=== PATIENT | female | born 1975 | race Caucasian/White ===

== ENCOUNTER 2016-10-16 07:03 | Emergency (ER) | payer OTHER ==
[2016-10-16 07:09] VITALS: BP 125/89
[2016-10-16] MEDS ORDERED: Ketorolac 60 MG/2 ML SDV IM ONE (07:38)
[2016-10-16] MEDS ORDERED: cefTRIAXone 1 GM Vial IM ONE (07:38)
[2016-10-16] MEDS ORDERED: Acetaminophen/oxyCODONE 325-5 MG Tab PO ONE (07:39)
--- NOTE | 2016-10-16 07:54 | EDM.PDOC ---
ED HPI GENERAL MEDICAL PROBLEM - General Chief Complaint: General Stated Complaint: Facial swelling, Jaw pain Time Seen by Provider: 10/16/16 07:26 Source of Information: Reports: Patient History Limitations: Reports: No Limitations - History of Present Illness INITIAL COMMENTS - FREE TEXT/NARRATIVE: Increasing pain and swelling right lower jaw for last several days. Has broken molar in this area. Has not bothered her before. No fevers. No nausea/emesis. Has tried a variety of OTC remedies including mouthwash and salt water without improvement. Last dose of Ibuprofen was around midnight. 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 heat therapy also used with minimal relief Tooth/Teeth Pain Score (Numeric/FACES): 7 - Related Data Allergies Allergy/AdvReac Type Severity Reaction Status Date / Time No Known Allergies Allergy Verified 10/16/16 07:17 Home Meds: Home Meds Acetaminophen [Tylenol] 650 mg PO Q4HR PRN 01/24/13 [History] Ibuprofen [Wal-Profen] 400 mg PO Q6HR PRN 01/24/13 [History] Cephalexin [Keflex] 500 mg PO Q6HR #16 cap 10/16/16 [Rx] Past Medical History HEENT History: Reports: Impaired Vision Other HEENT History: wears glasses Genitourinary History: Reports: None Psychiatric History: Reports: Anxiety - Past Surgical History Female Surgical History: Reports: Tubal Ligation Neurological Surgical History: Reports: Lumbar Spine Social & Family History - Tobacco Use Smoking Status *Q: Current Every Day Smoker Years of Tobacco use: 20 Packs/Tins Daily: 0.5 Second Hand Smoke Exposure: Yes - Caffeine Use Caffeine Use: Reports: Coffee, Soda - Alcohol Use Days Per Week of Alcohol Use: 0 - Recreational Drug Use Recreational Drug Use: No ED ROS GENERAL - Review of Systems Review Of Systems: ROS reveals no pertinent complaints other than HPI. ED EXAM, GENERAL - Physical Exam Exam: See Below Exam Limited By: No Limitations General Appearance: Alert, WD/WN, Mild Distress Eye Exam: Bilateral Eye: EOMI, PERRL Nose: No: Nasal Swelling, Nasal Drainage Throat/Mouth: Normal Voice, No Airway Compromise, Other (broken molar noted right lower jawline, mild swelling of gum in area, no drainage. ) Head: Facial Swelling (mild, right lower jaw area), Facial Tenderness Neck: Normal Inspection, Supple, Non-Tender, Full Range of Motion. No: Lymphadenopathy (L), Lymphadenopathy (R) Respiratory/Chest: No Respiratory Distress Cardiovascular: Tachycardia Extremities: Normal Capillary Refill Neurological: Alert, Oriented, Normal Cognition, Normal Gait, No Motor/Sensory Deficits Course - Vital Signs Last Recorded V/S: Last Vital Signs Temp 36.9 C 10/16/16 07:07 Pulse 114 H 10/16/16 07:07 Resp 18 10/16/16 07:07 BP 125/89 10/16/16 07:07 Pulse Ox 98 10/16/16 07:07 - Orders/Labs/Meds Meds: Medications Discontinued Medications Generic Name Dose Route Start Last Admin Trade Name Anila PRN Reason Stop Dose Admin Ceftriaxone Sodium 1 gm 10/16/16 07:38 10/16/16 07:52 Rocephin IM 10/16/16 07:39 1 gm ONETIME ONE Administration Ketorolac Tromethamine 60 mg 10/16/16 07:38 10/16/16 07:52 Toradol IM 10/16/16 07:39 60 mg ONETIME ONE Administration Lidocaine HCl 5 ml 10/16/16 07:40 10/16/16 07:52 Xylocaine-Mpf 1% INJECT 10/16/16 07:41 5 ml ONETIME ONE Administration Oxycodone/Acetaminophen 1 tab 10/16/16 07:39 10/16/16 07:53 Percocet 325-5 Mg PO 10/16/16 07:40 1 tab ONETIME ONE Administration - Re-Assessments/Exams Free Text/Narrative Re-Assessment/Exam: 10/16/16 08:10 Patient treated for suspected dental infection. Rocephin and Toradol given. PO Percocet. Sent home with Keflex/Toradol/T#3 To follow up with dentist libra Monday after holiday . Precautions reviewed prior to discharge. To return to ER if worsens. Departure - Departure Time of Disposition: 07:57 Disposition: Home, Self-Care 01 Condition: Good Clinical Impression: Tooth pain - Discharge Information Prescriptions: Cephalexin [Keflex] 500 mg PO Q6HR #16 cap Instructions: Acetaminophen; Oxycodone tablets, Ketorolac injection, Ceftriaxone injection, Dental Abscess, Cephalexin tablets or capsules, Acetaminophen; Codeine tablets Referrals: Talha Murillo COLL[employer] TAILOR [Primary Care Provider] - Forms: ED Department Discharge Additional Instructions: Follow up Monday with dentist. Follow up in ER over weekend if you get worsening symptoms.
== END 2016-10-16 08:20 | disposition home or self-care (01) ==
LOC: LL.ED 07:03
DX: K08.89 Other specified disorders of teeth and supporting structures (principal); R68.84 Jaw pain; F41.9 Anxiety disorder, unspecified; F17.210 Nicotine dependence, cigarettes, uncomplicated; Z98.51 Tubal ligation status
CPT/HCPCS: 96372; 99283; A9270; J0696; J1885

== ENCOUNTER 2017-05-22 11:55 | Emergency (ER) | payer OTHER ==
[2017-05-22] MEDS ORDERED: Sodium Chloride 0.9% 1,000 ML IV ONE ×2 (11:56→12:07)
[2017-05-22] MEDS ORDERED: Sodium Chloride 0.9% 10 ML Syringe FLUSH PRN (12:00)
[2017-05-22] MEDS ORDERED: Ondansetron 4 MG/2 ML SDV ONE (12:30)
[2017-05-22] MEDS ORDERED: Heparin Sodium 5,000 Units/ML Vial ONE (12:30)
[2017-05-22] MEDS ORDERED: Morphine 2 MG/ML Syringe ONE ×2 (12:30)
[2017-05-22] MEDS ORDERED: Morphine 2 MG/ML Syringe IVPUSH ONE ×2 (12:38→13:04)
[2017-05-22] MEDS ORDERED: Ondansetron 4 MG/2 ML SDV IVPUSH ONE (12:38)
[2017-05-22] MEDS ORDERED: Aspirin 81 MG Tab.Chew PO ONE (12:39)
[2017-05-22] MEDS ORDERED: DOPamine/Dextrose 5%-Water 400 MG/250 ML BAG IV SCH (12:45)
[2017-05-22] MEDS ORDERED: Sodium Chloride 0.9% 1,000 ML IV SCH (12:45)
[2017-05-22 12:51] LABS: CHLORIDE,CL 105 mmol/L (98-107); SODIUM,NA 139 mmol/L (136-145)
[2017-05-22] MEDS ORDERED: Heparin Sodium 5,000 Units/ML Vial IVPUSH ONE (12:56)
[2017-05-22] MEDS ORDERED: Heparin Sodium/D5W 25,000 UNITS/500 ML BAG IV SCH (13:00)
--- NOTE | 2017-05-24 01:18 | ER ---
HISTORY OF PRESENT ILLNESS: The patient is a 41-year-old female who was working in [facility] office, apparently was observed by coworkers who noticed that she had collapsed and was breathing irregularly, so a code was called to her office. Physician and nurses arrived with crash cart. CPR was started immediately, and the patient placed on telemetry. Immediately, after the patient was placed on telemetry, it was noted that she was in atrial fibrillation. The patient was, at that time, defibrillated with 300 joules, which caused her to have a return of rhythm. CPR was continued for 2 minutes after the shock, and at that time, the patient was much more alert and complaining of chest pain secondary to the shock and breathing on her own. She was transported to the emergency room. PAST MEDICAL HISTORY: Reviewed and noted that there was no current past medical history or no medical history of significance. The patient denied coronary arterial disease and hyperlipidemia. MEDICATIONS: The patient is on no medication at this time. SOCIAL HISTORY: She is a heavy smoker. PHYSICAL EXAMINATION: HEENT: Revealed normocephalic and atraumatic. Eyes were PERRLA. Extraocular movements were intact. NECK: Supple. CHEST: Symmetrical expansion. Clear to auscultation. CARDIOVASCULAR: Tachycardic at 115 per minute. No murmurs were heard. ABDOMEN: Soft and nontender. No mass. EXTREMITIES: Revealed no edema. No cyanosis. ASSESSMENT: At this time is acute myocardial infarction. PLAN: The patient was transferred to [facility]. Prior to transfer, it was noted that her blood pressure was low, so dopamine was started at 5 mcg/kilo/min, and this was reduced to 2 mcg/kilo/min because of tachycardia. GAIL Herbert MD /[id number]
== END 2017-05-22 13:10 ==
LOC: LL.ED 11:55
DX: I21.9 Acute myocardial infarction, unspecified (principal); F17.200 Nicotine dependence, unspecified, uncomplicated
CPT/HCPCS: 36415; 51702; 80053; 82550; 82553; 83605; 83880; 84484; 85025; 85379; 85610; 85730; 93005; 93010; 96365; 96374; 96375; 96376; 99285; 99291; 99292; J1265; J1644; J2270; J2405; J7030

== ENCOUNTER 2017-07-13 13:05 | Inpatient (IN) | payer OTHER ==
--- NOTE | 2017-07-12 19:03 | PCM.HP ---
H&P History of Present Illness - General Date of Service: 07/13/17 Admit Problem/Dx: 1. Coronary artery disease with status post acute SD 2. Refractory recurrent ventricular fibrillation 3. Weakness Source of Information: Patient, Old Records ([facility] chart/EMR), Other (Transfer records from [facility]. [facility] History Limitations: Reports: No Limitations - History of Present Illness Initial Comments - Free Text/Narative: Patient was brought to the emergency room for direct admission to our Swing Bed unit for continuation of physical therapy, occupational therapy, strengthening, and care of multiple health care issues after severe acute SD with recurrent ventricular fibrillation with very complicated post-event course as below her initial SD with secondary ventricular fibrillation on 05/22/17 with subsequent transfer to [facility] in [place] and further referral to the [facility] with hospitalization in that facility since . Despite her significant postoperative course as below the patient is progressing well. The patient denies any chest pain/pressure, heart flutter, dizziness, orthostasis, orthopnea, diaphoresis, paresthesias, or any other anginal-type symptoms, although her exercise tolerance and activity level remains extremely low with moderate generalized weakness. No recent history of abdominal pain, heartburn, nausea, diarrhea, melena, gross hematochezia, or any food intolerance, including fatty foods, etc.. She denies any current UTI symptoms, including Rocephin hematuria, colic, etc. The patient also denies any recent fever, cough, wheezing, dyspnea, etc.. No history of recent headaches, visual changes, diplopia, change in mental status, or other change in neurological status with significant generalized weakness as above, right greater than left, with patient unable to ambulate without assist. Onset of Symptoms: Reports: Sudden Symptom Onset Date: 05/22/17 Duration of Symptoms: Reports: Constant, Improving Location: Reports: Other (No significant pain) Improves with: Reports: None Worsens with: Reports: None Context: Reports: Trauma (As above) Associated Symptoms: Reports: Weakness (As above), Other (Multiple wounds as below). Denies: Confusion, Chest Pain, Cough, Diaphoresis, Fever/Chills, Headaches, Loss of Appetite, Malaise, Nausea/Vomiting, Seizure, Shortness of Breath, Syncope - Related Data Allergies/Adverse Reactions: Allergies Allergy/AdvReac Type Severity Reaction Status Date / Time No Known Allergies Allergy Verified 05/22/17 12:34 Home Medications: Home Meds Amiodarone HCl 400 mg PO DAILY 07/13/17 [History] Aspirin 81 mg PO DAILY 07/13/17 [History] Metoprolol Tartrate 25 mg PO BID@08,07/13/17 [History] Multivitamin with Minerals [Zwa-T-Fjpy-Minerals] 1 each PO DAILY 07/13/17 [ History] Pantoprazole [ProTONIX] 40 mg PO DAILY 07/13/17 [History] Ticagrelor [Brilinta] 90 mg PO BID@,07/13/17 [History] predniSONE [Prednisone] 5 mg PO DAILY 07/13/17 [History] Past Medical History HEENT History: Reports: Allergic Rhinitis, Impaired Vision. Denies: Cataract, Glaucoma, Hard of Hearing, Macular Degeneration, Retinal Detachment Other HEENT History: Patient wears glasses Cardiovascular History: Reports: Aneurysm, Arrhythmia, Automatic Implantable Cardioverter Defibrillators, Blood Clots/VTE/DVT, CAD, Cardiomyopathy, Heart Failure, High Cholesterol, SD, Pacemaker, PVD, SOB on Exertion, Stents, Syncope , Other (See Below). 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 Refractory recurrent ventricular fibrillation with secondary cardiac arrest on 05/22/17, 06/03/17, and . Bilateral DVTs of the lower extremities in May 2017. Recurrent tachycardia in 2012 of unknown type and etiology and related to anxiety at that time. Dry gangrene of the toes of her right foot secondary to post SD vascular injury as above/below. Respiratory History: Reports: Intubation, Previous, Other (See Below). Denies: Asthma, COPD, Intubation, Difficult, PE, Pneumothorax, Sleep Apnea Other Respiratory History: Initial endotracheal intubation on 05/1917 with reintubation on 06/03/17 and 06/29/17 Gastrointestinal History: Reports: GI Bleed, Hepatitis, Other (See Below). Denies: Bowel Obstruction, Celiac Disease, Cholelithiasis, Gastritis, GERD, Inflammatory Bowel Disease, Irritable Bowel Syndrome, Pancreatitis, PUD Other Gastrointestinal History: Severe lower intestinal GI bleed in June 2017 after acute SD in May 2017 with subsequent operative procedure required as below. Hepatic injury/LFTs elevation secondary to acute SD in May 2017. Post CVA dysphagia after SD in May 2017. Genitourinary History: Reports: Acute Renal Failure, Other (See Below). Denies : Chronic Renal Insuffiency, Renal Calculus, Urinary Incontinence, UTI, Recurrent Other Genitourinary History: Acute renal failure in May and June 2017 secondary to complications from acute SD in May 2017 with dialysis required CALL [facility] SUPPORT CONSULTANT History: Reports: Dysfunctional Uterine Bleeding, . Denies: Endometriosis, Fibroids : 5 Para: 4 LMP (Approximate): Other (See Below) Other OB/BYN History: Twin with as below. Dysmenorrhea/ menorrhagia. Musculoskeletal History: Reports: Arthritis Neurological History: Reports: CVA, Neuropathy, Peripheral, Other (See Below). Denies: Alzheimers Disease, Cerebral Aneurysms, Concussion, Headaches, Chronic, Head Trauma, Migraines, MS, Neuropathy, Diabetic, Parkinson's, Seizure, TIA Other Neuro History: Diffuse multiple bilateral small cerebral and cerebellar hemorrhages on 06/03/17 and/or septic infarctions subsequent to acute SD on 2017 with secondary sepsis and DIC Psychiatric History: Reports: Anxiety, Bipolar, Depression, Other (See Below) Other Psychiatric History: Bipolar disorder with some ashley in 2012 Endocrine/Metabolic History: Reports: Obesity/BMI 30+, Other (See Below). Denies: Diabetes, Type I, Diabetes, Type II, Diabetes Mellitus, Type 3c, Hypothyroidism, IDDM, Osteopenia, Osteoporosis Other Endocrine/Metabolic History: Hypoglycemia during . Benign thyroid cysts. Hematologic History: Reports: Anemia, Blood Transfusion(s), Heparin Induced Thrombocytopenia, Other (See Below) Other Hematologic History: Massive transfusion protocol on 05/23/17 after removal of ECMO with additional 2 units of packed red blood cells on 06/14 and . Thrombocytopenia and DIC secondary to sepsis in May 2017 Immunologic History: Reports: None Oncologic (Cancer) History: Reports: Cervix, Other (See Below) Other Oncologic History: Previous abnormal Pap smear Dermatologic History: Reports: Other (See Below) Other Dermatologic History: Acne vulgaris - Infectious Disease History Infectious Disease History: Reports: Chicken Pox, Shingles, Other (See Below). Denies: C-Difficile, Meningitis, Mononucleosis, MRSA, Mumps, Pertussis ( Whooping Cough), Rheumatic Fever, Rubella, Scarlet Fever, TB, VRE Other Infectious Disease History: Stenotrophomonas maltophilia sepsis secondary to postoperative SD course in May 2017 with secondary DIC as above. Right cervical herpes zoster in November 2012. Recurrent herpes types 1. - Past Surgical History Head Surgeries/Procedures: Reports: None HEENT Surgical History: Reports: Oral Surgery, Other (See Below). Denies: Adenoidectomy, Laser Surgery, Myringotomy w Tube(s), Tonsillectomy Other HEENT Surgeries/Procedures: Multiple teeth extractions Cardiovascular Surgical History: Reports: AICD, Carotid Stents, Coronary Artery Stent, Pacer, Vascular Surgery. Denies: AAA Repair, Aneurysm Other Cardiovascular Surgeries/Procedures: Drug-eluting stents 3 of the right coronary artery overlapping in nature and additional drug-eluting stent 1 over the left main coronary artery and proximal LAD on 05/22/17 secondary to aneurysm/ dissection. Repair of right femoral artery dissection with additional required fasciotomy and 06/02/17 secondary to ECMO catheter. Right subclavian artery banding on 06/03/17 secondary to hemorrhage/hematoma from ECMO catheter with evacuation of right axillary hematoma on 06/08/17. Trans-axillary IABP placed on 06/08/17 with replacement on 06/11/17. Middle celiac artery embolization on . Right leg femoral artery stent placement and fasciotomy of the right leg on 05/23/17 and subsequent closure on 05/26/17. PICC line on 06/21/17. AICD/pacemaker placement on 07/04/17 Respiratory Surgical History: Reports: None. Denies: Thoracentesis GI Surgical History: Reports: Other (See Below). Denies: Appendectomy, Cholecystectomy, Colonoscopy, EGD, Hernia, Abdominal, Hernia, Inguinal, Hernia Repair/Other, Polypectomy Other GI Surgeries/Procedures: Flexible sigmoidoscopy on 06/13/17 Female Surgical History: Reports: Section, Tubal Ligation, Other ( See Below) Other Female Surgeries/Procedures: Alfonso catheter placement by urology on . Bilateral tubal ligation in 2007. secondary to twin delivery on 02/25/07. Endocrine Surgical History: Reports: None Neurological Surgical History: Reports: Lumbar Spine, Other (See Below). Denies : C-Spine, Discectomy, Intracranial, Laminectomy, Spinal Fusion, Thoracic Spine , Vertebroplasty Other Neurological Surgeries/Procedures: Stellate ganglion block on 06/23/17. Musculoskeletal Surgical History: Reports: None Oncologic Surgical History: Reports: None Dermatological Surgical History: Reports: None - Past Imaging History Past Imaging History: Reports: Angiography (Heart catheterization on 05/22/17 with procedures as above.), Cardiac Echo (Last echocardiogram on 06/04/17 with ejection fraction of only 2530 percent with previous echocardiogram at time of her SD on 05/22/17 showing an ejection fraction of only 510 percent), CAT Scan ( CT of the head on 06/13/17, 06/03/17, and 11/30/12. CTA of the chest on 06/14/17. CT of the neck on 11/26/12.), Ultrasound (Soft tissue ultrasound of the neck and thyroid gland on 11/23/12.), Venous Doppler (Venous Doppler studies of the lower extremities 2 in May 2017.) Social & Family History - Family History Family Medical History: Noncontributory - Tobacco Use Smoking Status *Q: Former Smoker Tobacco Use Within Last Twelve Months: Cigarettes Years of Tobacco use: 21 Packs/Tins Daily: 0.5 Packs/Tins Daily Comment: Smoked between ages 21 and 41 with no use since her SD on 05/22/17. Maximum use of 2 packs per day Used Tobacco, but Quit: Yes Smoking Cessation Information Provided To Patient: No Second Hand Smoke Exposure: No Second Hand Smoke Education Provided: No - Caffeine Use Caffeine Use: Reports: Coffee (2 cups per day). Denies: Energy Drinks, Soda, Tea - Alcohol Use Alcohol Use History: No Days Per Week of Alcohol Use: 0 Number of Drinks Per Day: 0 Number of Drinks Per Day Comment: No previous DWIs, problems with alcohol abuse , etc. 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 Denies : Fever, Chills, Malaise, Night Sweats, Diaphoresis, Decreased Appetite, Weight Gain HEENT: Reports: Glasses. Denies: Ear Pain, Eye Pain, Headaches, Hearing Changes , Rhinitis, Post Nasal Drip, Sinus Congestion, Sore Throat, Vertigo, Visual Changes Pulmonary: Reports: No Symptoms. Denies: Shortness of Breath, Wheezing, Pleuritic Chest Pain, Cough Cardiovascular: Reports: Edema. Denies: Chest Pain, Palpitations, Dyspnea on Exertion, Orthopnea, Lightheadedness, Syncope, Claudication, Blood Pressure Problem Gastrointestinal: Reports: No Symptoms. Denies: Abdominal Pain, Anorexia, Black Stool, Bloody Stool, Constipation, Diarrhea, Decreased Appetite, Distension, Flatus, Hematochezia, Melena, Nausea, Stool Incontinence, Vomiting Genitourinary: Reports: No Symptoms. Denies: Dysuria, Frequency, Burning, Pain , Urgency, Incontinence, Hematuria, Retention, Discharge, Abnormal Menses, Dysmenorrhea, Flank Pain Musculoskeletal: Reports: No Symptoms. Denies: Neck Pain, Shoulder Pain, Arm Pain, Back Pain, Leg Pain Skin: Reports: Bruising, Wound (As per physical exam), Change in Color (As per physical exam). Denies: Diaphoresis Psychiatric: Reports: No Symptoms. Denies: Confusion, Depression, Anxiety, Agitation, Cravings Neurological: Reports: Numbness, Paresthesia, Difficulty Walking, Weakness. Denies: Confusion, Dizziness, Headache, Change in Speech Hematologic/Lymphatic: Reports: No Symptoms Immunologic: Reports: No Symptoms Exam - Exam Exam: See Below - Vital Signs Vital Signs: Vital Signs - 24 hr 07/13/17 07/13/17 17:07 22:12 Temperature [ 36.4 C Temporal] Pulse, 102 H Peripheral Pulse, 102 H Peripheral [ Left Pulse Oximetry] Blood Pressure 82/49 L Blood Pressure 82/49 L [Left Lower Leg ] O2 Sat by Pulse 100 Oximetry - Exam Quality Assessment: DVT Prophylaxis, Skin Breakdown. No: Supplemental Oxygen, Central Line/PICC, Urinary Catheter, Restraints General: Alert, Oriented, Cooperative HEENT: Conjunctiva Clear, EACs Clear, EOMI, Hearing Intact, Mucosa Moist & [place] , Nares Patent, Normal Nasal Septum, Posterior Pharynx Clear, Pupils Equal, Pupils Reactive, TMs Clear, Glasses, PERRLA Neck: Supple, Trachea Midline, +2 Carotid Pulse wo Bruit, Full Range of Motion. No: Lymphadenopathy, JVD, Thyromegaly Lungs: Normal Respiratory Effort, Rales (Mild bilateral basilar). No: Rhonchi, Rub, Wheezing Cardiovascular: Normal S1, Normal S2, Irregular Rhythm (Extrasystoles), Tachycardia (Borderline), Other (Steri-Strips and left upper chest wall region at site of ICD placement). No: Systolic Murmur, Diastolic Murmur, Rubs, Gallop/ S3, Gallop/S4 GI/Abdominal Exam: Normal Bowel Sounds, Soft, Non-Tender, No Organomegaly, No Distention, No Abnormal Bruit, No Mass, Pelvis Stable. No: Guarding (Female) Exam: Deferred Rectal (Female) Exam: Deferred Back Exam: Normal Inspection, Full Range of Motion. No: CVA Tenderness (L), CVA Tenderness (R), Muscle Spasm Extremities: Pedal Edema (+1 bilateral pedal/pretibial edema right greater than left.), Slow Capillary Refill (Toes bilaterally), Other (2 cm in length surgical site in the right axillary region with sutures still in place and moderate surrounding ecchymosis and swelling, no local signs of acute infection. 8 cm in length grade 23 wound with mild purulent drainage at left inguinal region. Large incision over the distal right leg at site of the fasciotomy with no local signs of infection. Dry gangrene of the toes of the right foot with no drainage or sign of infection). No: Kevin's Sign Peripheral Pulses: 1+: Dorsalis Pedis (L), Dorsalis Pedis (R), 2+: Radial (L), Radial (R) Skin: Ecchymosis (As above), Wound (As above), Incision (As above). No: Decubitis Neurological: Other (Moderate generalized weakness right greater than left), Babinski Absent Neuro Extensive - Mental Status: Alert, Oriented x3, Normal Mood/Affect, Normal Cognition, Memory Intact, Other (Moderate resting tremor) Psychiatric: Alert, Normal Affect, Normal Mood. No: Agitated, Hallucinations, Withdrawal Symptoms - Patient Data Imaging Impressions Last 24 hrs: Blood work to be conducted in the a.m. EKG INTERPRETATION EKG Date: 07/14/17 Time: 21:14 Rhythm: Other (Sinus tachycardia) Rate (Beats/Min): 102 [place]: Normal (Left cardiac axis) P-Wave: Present (Pulmonary hypertension by EKG) QRS: Wide (QRS interval of 0.10 seconds representing repolarization changes) ST-T: Depressed ([address] depressions in leads 1, 2, and V3 through V6) QT: Normal LA/PQ Interval: 0.19 seconds Comparison: NA - No Prior EKG (Since acute SD) EKG Interpretation Comments: 1. Probable Lateral wall ischemia 2. Sinus tachycardia - Problem List (1) Coronary artery disease SNOMED Code(s): 78728446 ICD Code: I25.10 - ATHSCL HEART DISEASE OF [place] CORONARY ARTERY W/O ANG PCTRS Status: Acute Priority: High Current Visit: Yes Onset Date: Problem Details: Significant SD on 05/22/17 as above with severely complicated course. Some arrhythmia noted, however was not present at today's EKG. Note current pacemaker and AICD. No current anginal-type symptoms. Blood work and chest x-ray in the a.m. with [facility] physician to evaluate. I will also follow up with the patient next week with probable repeat blood work that time. Week. Qualifiers: Coronary Disease-Associated Artery/Lesion type: [place] artery [place] vs. transplanted heart: [place] heart Associated angina: without angina Qualified Code(s): I25.10 - Atherosclerotic heart disease of [place] coronary artery without angina pectoris (2) Peripheral vascular disease SNOMED Code(s): 896988662 ICD Code: I73.9 - PERIPHERAL VASCULAR DISEASE, UNSPECIFIED Status: Acute Priority: High Current Visit: Yes Problem Details: Significant peripheral vascular disease secondary to complications from ECMO therapy as above. Dry gangrene of the right foot with possible surgical consultation next week (3) Hyperlipidemia SNOMED Code(s): 67832246 ICD Code: E78.5 - HYPERLIPIDEMIA, UNSPECIFIED Status: Chronic Priority: Medium Current Visit: Yes Problem Details: Currently under therapy. Lipid panel in the a.m. (4) Weakness SNOMED Code(s): 15714572 ICD Code: R53.1 - WEAKNESS Status: Acute Priority: High Current Visit: Yes Problem Details: PT and OT to be continued during swing bed care. Strict fall precautions (5) CHF (congestive heart failure) SNOMED Code(s): 97310674 ICD Code: I50.9 - HEART FAILURE, UNSPECIFIED Status: Acute Priority: High Current Visit: Yes Problem Details: Consider echocardiogram in the upcoming weeks depending on her clinical course. Qualifiers: Heart failure type: unspecified Heart failure chronicity: chronic Qualified Code(s): I50.9 - Heart failure, unspecified (6) Mixed anxiety depressive disorder SNOMED Code(s): 964585431 ICD Code: F41.8 - OTHER SPECIFIED ANXIETY DISORDERS Status: Chronic Priority: Medium Current Visit: Yes Problem Details: Excellent control despite recent extensive hospitalization and current health problems. Continue to observe closely. Emotional support provided to the patient, her , and 2 daughters today (7) Tobacco abuse counseling SNOMED Code(s): 571629505, 603671943, 576293736 ICD Code: Z71.6 - TOBACCO ABUSE COUNSELING Status: Chronic Current Visit : Yes Problem Details: Patient congratulated about stopping smoking Problem List Initiated/Reviewed/Updated: Yes Assessment/Plan Comment:: As above. Extensive precautions were given to the patient and her , who are in agreement with the treatment plan.
[2017-07-13] MEDS ORDERED: Bisacodyl 5 MG Tab PO PRN (13:06)
[2017-07-13] MEDS ORDERED: Calcium Carbonate 500 MG Tab.Chew PO PRN (13:06)
[2017-07-13] MEDS: Ticagrelor 90 MG Tab PO SCH (22:12)
[2017-07-13] MEDS: Metoprolol Tartrate 25 MG Tab PO SCH (22:12)
[2017-07-14 08:30] LABS: CHLORIDE,CL 105 mmol/L (98-107); SODIUM,NA 137 mmol/L (136-145)
--- NOTE | 2017-07-14 09:13 | PCM.SN ---
- Free Text/Narrative Note: Labs reviewed this AM. NEW DIAGNOSES: iron deficiency anemia, hypotension, hypoalbuminemia, hypothyroidism, CHF, hypomagnesemia, and LFT elevation likely secondary to CHF. Also add Refractory V. fib and peripheral neuropathy to diagnoses. BP better this AM with moderate hypotension this past evening. Patient would not tolerate diuretics or ARLEEN inhibitor at this time. Check on logistics and finances of possible Echo in this facility on 07/18. Dr. Pineda will review today's CXR for me today. Follow up labs, etc already ordered for 07/18 and 08/17 with Swing Bed Rounds on those days. Neurontin ordered for peripheral neuropathy with other orders/meds today for new above diagnoses. Surgical Cosult here for right foot gangrene planned for 07/20. Lipid panel and glycosylated hemoglobin are OK.
[2017-07-14] MEDS: Aspirin 81 MG Tab.Chew PO SCH (09:30)
[2017-07-14] MEDS: Multivitamin Tab PO SCH (09:30)
[2017-07-14] MEDS: Amiodarone 200 MG Tab PO SCH (09:31)
[2017-07-14] MEDS: Metoprolol Tartrate 25 MG Tab PO SCH ×2 (09:31→19:46)
[2017-07-14] MEDS: predniSONE 5 MG Tab PO SCH (09:32)
[2017-07-14] MEDS: Pantoprazole 40 MG Tab.CR PO SCH (09:32)
[2017-07-14] MEDS: Ticagrelor 90 MG Tab PO SCH ×2 (09:32→19:43)
[2017-07-14] MEDS: Gabapentin 300 MG Cap PO SCH ×2 (11:45→17:22)
[2017-07-14] MEDS: Levothyroxine 50 MCG Tab PO SCH (11:45)
[2017-07-14] MEDS: Ferrous Sulfate 325 MG Tab PO SCH (17:21)
[2017-07-14] MEDS: Magnesium Oxide 400 MG Tab PO SCH (17:22)
[2017-07-15] MEDS: Aspirin 81 MG Tab.Chew PO SCH (07:46)
[2017-07-15] MEDS: Multivitamin Tab PO SCH (07:47)
[2017-07-15] MEDS: Amiodarone 200 MG Tab PO SCH (07:47)
[2017-07-15] MEDS: Metoprolol Tartrate 25 MG Tab PO SCH ×2 (07:47→20:25)
[2017-07-15] MEDS: Ferrous Sulfate 325 MG Tab PO SCH ×2 (07:47→18:34)
[2017-07-15] MEDS: Pantoprazole 40 MG Tab.CR PO SCH (07:48)
[2017-07-15] MEDS: predniSONE 5 MG Tab PO SCH (07:49)
[2017-07-15] MEDS: Ticagrelor 90 MG Tab PO SCH ×2 (07:50→20:25)
[2017-07-15] MEDS: Levothyroxine 50 MCG Tab PO SCH (07:50)
[2017-07-15] MEDS: Gabapentin 300 MG Cap PO SCH ×2 (07:51→18:34)
[2017-07-15] MEDS: Magnesium Oxide 400 MG Tab PO SCH (18:34)
[2017-07-16] MEDS: Ferrous Sulfate 325 MG Tab PO SCH ×2 (07:48→18:30)
[2017-07-16] MEDS: Multivitamin Tab PO SCH (07:48)
[2017-07-16] MEDS: Aspirin 81 MG Tab.Chew PO SCH (07:48)
[2017-07-16] MEDS: Amiodarone 200 MG Tab PO SCH (07:49)
[2017-07-16] MEDS: predniSONE 5 MG Tab PO SCH (07:49)
[2017-07-16] MEDS: Metoprolol Tartrate 25 MG Tab PO SCH ×2 (07:49→20:56)
[2017-07-16] MEDS: Pantoprazole 40 MG Tab.CR PO SCH (07:49)
[2017-07-16] MEDS: Ticagrelor 90 MG Tab PO SCH ×2 (07:49→20:55)
[2017-07-16] MEDS: Gabapentin 300 MG Cap PO SCH ×2 (07:49→18:30)
[2017-07-16] MEDS: Levothyroxine 50 MCG Tab PO SCH (07:49)
--- NOTE | 2017-07-16 10:26 | PCM.SN ---
- Free Text/Narrative Note: UA culture + Klebsiella. Susceptible to Macrobid. Will place patient on course of Macrobid for 7 days.
[2017-07-16] MEDS: Nitrofurantoin Monohydrate/Macrocrystalline 100 MG Cap PO SCH ×2 (11:29→18:30)
[2017-07-16] MEDS: Magnesium Oxide 400 MG Tab PO SCH (18:30)
[2017-07-17] MEDS: Ferrous Sulfate 325 MG Tab PO SCH ×2 (08:30→17:21)
[2017-07-17] MEDS: Gabapentin 300 MG Cap PO SCH ×2 (08:31→17:22)
[2017-07-17] MEDS: Levothyroxine 50 MCG Tab PO SCH (08:31)
[2017-07-17] MEDS: Aspirin 81 MG Tab.Chew PO SCH (08:31)
[2017-07-17] MEDS: Multivitamin Tab PO SCH (08:31)
[2017-07-17] MEDS: Amiodarone 200 MG Tab PO SCH (08:32)
[2017-07-17] MEDS: Ticagrelor 90 MG Tab PO SCH (08:32)
[2017-07-17] MEDS: Pantoprazole 40 MG Tab.CR PO SCH (08:32)
[2017-07-17] MEDS: Metoprolol Tartrate 25 MG Tab PO SCH (08:33)
[2017-07-17] MEDS: Nitrofurantoin Monohydrate/Macrocrystalline 100 MG Cap PO SCH ×2 (10:42→17:22)
[2017-07-17] MEDS: Magnesium Oxide 400 MG Tab PO SCH (17:21)
[2017-07-18] MEDS: Ticagrelor 90 MG Tab PO SCH ×3 (03:35→21:44)
[2017-07-18] MEDS: Metoprolol Tartrate 25 MG Tab PO SCH ×3 (03:35→21:44)
[2017-07-18] MEDS: Ferrous Sulfate 325 MG Tab PO SCH ×2 (07:22→18:22)
[2017-07-18] MEDS: Levothyroxine 50 MCG Tab PO SCH (07:22)
[2017-07-18] MEDS: Amiodarone 200 MG Tab PO SCH (07:23)
[2017-07-18] MEDS: Aspirin 81 MG Tab.Chew PO SCH (07:23)
[2017-07-18] MEDS: Gabapentin 300 MG Cap PO SCH ×3 (07:24→18:22)
[2017-07-18] MEDS: Nitrofurantoin Monohydrate/Macrocrystalline 100 MG Cap PO SCH ×2 (07:24→18:22)
[2017-07-18] MEDS: Multivitamin Tab PO SCH (07:24)
[2017-07-18] MEDS: Pantoprazole 40 MG Tab.CR PO SCH (07:24)
[2017-07-18] MEDS: Acetaminophen 325 MG Tab PO PRN (07:33)
[2017-07-18 07:52] LABS: CHLORIDE,CL 109 mmol/L (98-107); SODIUM,NA 142 mmol/L (136-145)
--- NOTE | 2017-07-18 08:18 | PCM.PN ---
- General Info Date of Service: 07/18/17 Admission Dx/Problem (Free Text): 1. Coronary artery disease with status post acute [place] 2. Refractory recurrent ventricular fibrillation 3. Weakness Functional Status: Reports: Pain Controlled, Tolerating Diet. Denies: Ambulating (the patient is still a Angelito lift with PT and OT in progress) - Review of Systems General: Reports: Weakness HEENT: Reports: Glasses. Denies: Dysphasia, Ear Pain, Eye Pain, Headaches, Post Nasal Drip, Sinus Congestion, Sore Throat, Rhinitis, Visual Changes Pulmonary: Reports: No Symptoms. Denies: Shortness of Breath (limited activity) , Pleuritic Chest Pain, Cough, Sputum, Hemoptysis, Wheezing Cardiovascular: Reports: Edema (stable dependent). Denies: Chest Pain, Palpitations, Dyspnea on Exertion (limited activity), Orthopnea, PND, Lightheadedness Gastrointestinal: Reports: No Symptoms. Denies: Abdominal Pain, Constipation, Decreased Appetite, Diarrhea, Difficulty Swallowing, Flatus, Hematochezia, Melena, Nausea, Vomiting Genitourinary: Reports: No Symptoms, Other (current UTI under therapy with Macrobid). Denies: Dysuria, Frequency, Burning, Pain, Urgency, Incontinence, Hematuria, Retention, Flank Pain Musculoskeletal: Reports: Foot Pain (secondary to gangrene and peripheral neuropathy). Denies: Neck Pain, Shoulder Pain, Arm Pain, Back Pain, Leg Pain Skin: Reports: Pallor, Other (stable postoperative wounds). Denies: Diaphoresis , Bruising Neurological: Reports: Numbness, Paresthesia, Pre-Existing Deficit (resting tremor and mild right hemiparesis), Tingling, Weakness (moderate generalized), Gait Disturbance (stable). Denies: Confusion, Dizziness, Headache, Change in Speech Psychiatric: Reports: No Symptoms. Denies: Confusion, Depression, Anxiety, Agitation, Hallucinations - Patient Data Vitals - Most Recent: Last Vital Signs Temp 36.8 C 07/17/17 19:59 Pulse 106 H 07/18/17 07:23 Resp 16 07/17/17 19:59 BP 117/67 07/18/17 07:23 Pulse Ox 100 07/17/17 19:59 Vital Signs (72 hours) 07/15/17 07/15/17 07/16/17 20:00 20:25 07:49 Temperature [ 36.4 C Temporal] Pulse, 87 84 Peripheral Pulse, 87 Peripheral [ Left Pulse Oximetry] Respiratory 14 Rate Blood Pressure 122/73 115/68 Blood Pressure 122/73 [Left Lower Leg ] O2 Sat by Pulse 100 Oximetry 07/16/17 07/16/17 07/17/17 08:00 20:00 08:00 Temperature [ 36.7 C 36.4 C 36.4 C Temporal] Pulse, Peripheral Pulse, 84 101 H 109 H Peripheral [ Left Pulse Oximetry] Respiratory 16 18 17 Rate Blood Pressure Blood Pressure 115/68 94/60 100/64 [Left Lower Leg ] O2 Sat by Pulse 96 98 100 Oximetry 07/17/17 07/17/17 07/18/17 08:33 19:59 07:23 Temperature [ 36.8 C Temporal] Pulse, 109 H 106 H Peripheral Pulse, 112 H Peripheral [ Left Pulse Oximetry] Respiratory 16 Rate Blood Pressure 110/68 117/67 Blood Pressure 98/63 [Left Lower Leg ] O2 Sat by Pulse 100 Oximetry 07/18/17 08:00 Temperature [ 36.5 C Temporal] Pulse, Peripheral Pulse, 103 H Peripheral [ Left Pulse Oximetry] Respiratory 16 Rate Blood Pressure Blood Pressure 117/67 [Left Lower Leg ] O2 Sat by Pulse 97 Oximetry Weight - Most Recent: 82.554 kg I&O - Last 24 Hours: Intake & Output 07/17/17 07/18/17 07/18/17 22:59 06:59 14:59 Intake Total 120 350 Balance 120 350 Imaging Impressions - Last 24 Hours: None. Chest x-ray report from 07/14 reviewed as below Lab Results Last 24 Hours: Laboratory Results - last 24 hr 07/18/17 07/18/17 Range/Units 07:23 07:23 WBC 8.4 (4.0-10.2) K/uL RBC 3.14 L (3.77-5.09) M/uL Hgb 9.8 L (11.7-15.5) g/dL Hct 30.2 L (34.0-46.0) % MCV 96.2 (84.0-98.0) fL MCH 31.2 (28.2-33.3) pg MCHC 32.5 (31.7-36.0) g/dL RDW 16.4 H (11.2-14.1) % Plt Count 195 (150-350) K/uL Neut % (Auto) 64.8 (45.0-80.0) % Lymph % (Auto) 26.5 (10.0-50.0) % [place] % (Auto) 5.7 (2.0-14.0) % Eos % (Auto) 2.5 (0.0-5.0) % Baso % (Auto) 0.5 (0.0-2.0) % Neut # (Auto) 5.44 (1.40-7.00) K/uL Lymph # (Auto) 2.23 (0.50-3.50) K/uL [place] # (Auto) 0.48 (0.00-1.00) K/uL Eos # (Auto) 0.21 (0.00-0.50) K/uL Baso # (Auto) 0.04 (0.00-0.20) K/uL Sodium 142 (136-145) mmol/L Potassium 3.7 (3.5-5.1) mmol/L Chloride 109 H (98-107) mmol/L Carbon Dioxide 23.4 (21.0-32.0) mmol/L BUN 13 (7-18) mg/dL Creatinine 0.82 (0.51-1.17) mg/dL Est Cr Clr Drug Dosing 95.31 mL/min Estimated GFR (MDRD) > 60 mL/min Glucose 80 (74-106) mg/dL Calcium 9.2 (8.5-10.1) mg/dL Magnesium 1.7 L (1.8-2.4) mg/dL Total Bilirubin 0.5 (0.2-1.0) mg/dL AST 45 H (15-37) U/L ALT 55 (12-78) U/L Alkaline Phosphatase 368 H (46-116) IU/L NT-Pro-B Natriuret Pep 4659 H (0-125) pg/mL Total Protein 5.9 L (6.4-8.2) g/dL Albumin 2.3 L (3.4-5.0) g/dL Laboratory Tests 07/14/17 07/14/17 07/14/17 Range/Units 07:15 07:15 07:15 WBC 8.9 (4.0-10.2) K/uL RBC 3.27 L (3.77-5.09) M/uL Hgb 10.1 L D (11.7-15.5) g/dL Hct 30.7 L (34.0-46.0) % MCV 93.9 (84.0-98.0) fL MCH 30.9 (28.2-33.3) pg MCHC 32.9 (31.7-36.0) g/dL RDW 16.7 H (11.2-14.1) % Plt Count 191 D (150-350) K/uL Neut % (Auto) 71.3 (45.0-80.0) % Lymph % (Auto) 19.1 (10.0-50.0) % [place] % (Auto) 6.3 (2.0-14.0) % Eos % (Auto) 2.8 (0.0-5.0) % Baso % (Auto) 0.5 (0.0-2.0) % Neut # (Auto) 6.33 (1.40-7.00) K/uL Lymph # (Auto) 1.70 (0.50-3.50) K/uL [place] # (Auto) 0.56 (0.00-1.00) K/uL Eos # (Auto) 0.25 (0.00-0.50) K/uL Baso # (Auto) 0.04 (0.00-0.20) K/uL PT 11.4 (9.8-11.7) SEC INR 1.1 APTT 21.8 L (22.1-29.8) SEC Sodium (136-145) mmol/L Potassium (3.5-5.1) mmol/L Chloride (98-107) mmol/L Carbon Dioxide (21.0-32.0) mmol/L BUN (7-18) mg/dL Creatinine (0.51-1.17) mg/dL Est Cr Clr Drug Dosing Estimated GFR (MDRD) mL/min Glucose (74-106) mg/dL Hemoglobin A1c (4.3-5.7) % Uric Acid (2.6-7.2) mg/dL Calcium (8.5-10.1) mg/dL Magnesium (1.8-2.4) mg/dL Iron (50-175) ug/dL TIBC (250-450) ug/dL % Saturation Total Bilirubin (0.2-1.0) mg/dL AST (15-37) U/L ALT (12-78) U/L Alkaline Phosphatase (46-116) IU/L Creatine Kinase (26-308) U/L Creatine Kinase Index (0.0-2.5) % CK-MB (CK-2) (0.00-3.60) ng/mL Troponin I 0.050 (0.000-0.056) ng/mL NT-Pro-B Natriuret Pep (0-125) pg/mL Total Protein (6.4-8.2) g/dL Albumin (3.4-5.0) g/dL Triglycerides (30-150) mg/dL Cholesterol (100-200) mg/dL LDL Cholesterol, Calc (0-100) mg/dL HDL Cholesterol (40-60) mg/dL Vitamin B12 (193-986) pg/mL Folate (8.6-58.9) ng/mL TSH, Ultra Sensitive (0.358-3.740) mIU/mL Specimen Type Urine Color Urine Appearance Urine pH (5.0-9.0) Ur Specific [place] (1.005-1.030) Urine Protein (NEGATIVE) mg/dL Urine Glucose (UA) (NEGATIVE) mg/dL Urine Ketones (NEGATIVE) mg/dL Urine Occult Blood (NEGATIVE) Urine Nitrite (NEGATIVE) Urine Bilirubin (NEGATIVE) Urine Urobilinogen (0.2-1.0) E.U./dL Ur Leukocyte Esterase (NEGATIVE) Urine RBC /HPF Urine WBC /HPF Ur Epithelial Cells /LPF Urine Bacteria (NONE TO FEW) /HPF Urine Yeast (NEGATIVE) /HPF 07/14/17 07/14/17 07/14/17 Range/Units 07:15 07:15 07:15 WBC (4.0-10.2) K/uL RBC (3.77-5.09) M/uL Hgb (11.7-15.5) g/dL Hct (34.0-46.0) % MCV (84.0-98.0) fL MCH (28.2-33.3) pg MCHC (31.7-36.0) g/dL RDW (11.2-14.1) % Plt Count (150-350) K/uL Neut % (Auto) (45.0-80.0) % Lymph % (Auto) (10.0-50.0) % [place] % (Auto) (2.0-14.0) % Eos % (Auto) (0.0-5.0) % Baso % (Auto) (0.0-2.0) % Neut # (Auto) (1.40-7.00) K/uL Lymph # (Auto) (0.50-3.50) K/uL [place] # (Auto) (0.00-1.00) K/uL Eos # (Auto) (0.00-0.50) K/uL Baso # (Auto) (0.00-0.20) K/uL PT (9.8-11.7) SEC INR APTT (22.1-29.8) SEC Sodium 137 (136-145) mmol/L Potassium 3.5 (3.5-5.1) mmol/L Chloride 105 (98-107) mmol/L Carbon Dioxide 20.9 L (21.0-32.0) mmol/L BUN 12 (7-18) mg/dL Creatinine 0.98 (0.51-1.17) mg/dL Est Cr Clr Drug Dosing TNP Estimated GFR (MDRD) > 60 mL/min Glucose 83 (74-106) mg/dL Hemoglobin A1c 5.2 (4.3-5.7) % Uric Acid 6.1 (2.6-7.2) mg/dL Calcium 8.9 (8.5-10.1) mg/dL Magnesium 1.6 L (1.8-2.4) mg/dL Iron 40 L (50-175) ug/dL TIBC 191 L (250-450) ug/dL % Saturation 20.41884 Total Bilirubin 0.7 (0.2-1.0) mg/dL AST 39 H (15-37) U/L ALT 45 (12-78) U/L Alkaline Phosphatase 330 H (46-116) IU/L Creatine Kinase 28 (26-308) U/L Creatine Kinase Index 12.9 H (0.0-2.5) % CK-MB (CK-2) 3.60 (0.00-3.60) ng/mL Troponin I (0.000-0.056) ng/mL NT-Pro-B Natriuret Pep 5609 H (0-125) pg/mL Total Protein 6.4 (6.4-8.2) g/dL Albumin 2.6 L (3.4-5.0) g/dL Triglycerides 130 (30-150) mg/dL Cholesterol 170 (100-200) mg/dL LDL Cholesterol, Calc 86 (0-100) mg/dL HDL Cholesterol 58 (40-60) mg/dL Vitamin B12 716 (193-986) pg/mL Folate 19.2 (8.6-58.9) ng/mL TSH, Ultra Sensitive 4.520 H (0.358-3.740) mIU/mL Specimen Type Urine Color Urine Appearance Urine pH (5.0-9.0) Ur Specific [place] (1.005-1.030) Urine Protein (NEGATIVE) mg/dL Urine Glucose (UA) (NEGATIVE) mg/dL Urine Ketones (NEGATIVE) mg/dL Urine Occult Blood (NEGATIVE) Urine Nitrite (NEGATIVE) Urine Bilirubin (NEGATIVE) Urine Urobilinogen (0.2-1.0) E.U./dL Ur Leukocyte Esterase (NEGATIVE) Urine RBC /HPF Urine WBC /HPF Ur Epithelial Cells /LPF Urine Bacteria (NONE TO FEW) /HPF Urine Yeast (NEGATIVE) /HPF 07/14/17 07/18/17 07/18/17 Range/Units 08:26 07:23 07:23 WBC 8.4 (4.0-10.2) K/uL RBC 3.14 L (3.77-5.09) M/uL Hgb 9.8 L (11.7-15.5) g/dL Hct 30.2 L (34.0-46.0) % MCV 96.2 (84.0-98.0) fL MCH 31.2 (28.2-33.3) pg MCHC 32.5 (31.7-36.0) g/dL RDW 16.4 H (11.2-14.1) % Plt Count 195 (150-350) K/uL Neut % (Auto) 64.8 (45.0-80.0) % Lymph % (Auto) 26.5 (10.0-50.0) % [place] % (Auto) 5.7 (2.0-14.0) % Eos % (Auto) 2.5 (0.0-5.0) % Baso % (Auto) 0.5 (0.0-2.0) % Neut # (Auto) 5.44 (1.40-7.00) K/uL Lymph # (Auto) 2.23 (0.50-3.50) K/uL [place] # (Auto) 0.48 (0.00-1.00) K/uL Eos # (Auto) 0.21 (0.00-0.50) K/uL Baso # (Auto) 0.04 (0.00-0.20) K/uL PT (9.8-11.7) SEC INR APTT (22.1-29.8) SEC Sodium 142 (136-145) mmol/L Potassium 3.7 (3.5-5.1) mmol/L Chloride 109 H (98-107) mmol/L Carbon Dioxide 23.4 (21.0-32.0) mmol/L BUN 13 (7-18) mg/dL Creatinine 0.82 (0.51-1.17) mg/dL Est Cr Clr Drug Dosing 95.31 Estimated GFR (MDRD) > 60 mL/min Glucose 80 (74-106) mg/dL Hemoglobin A1c (4.3-5.7) % Uric Acid (2.6-7.2) mg/dL Calcium 9.2 (8.5-10.1) mg/dL Magnesium 1.7 L (1.8-2.4) mg/dL Iron (50-175) ug/dL TIBC (250-450) ug/dL % Saturation Total Bilirubin 0.5 (0.2-1.0) mg/dL AST 45 H (15-37) U/L ALT 55 (12-78) U/L Alkaline Phosphatase 368 H (46-116) IU/L Creatine Kinase (26-308) U/L Creatine Kinase Index (0.0-2.5) % CK-MB (CK-2) (0.00-3.60) ng/mL Troponin I (0.000-0.056) ng/mL NT-Pro-B Natriuret Pep 4659 H (0-125) pg/mL Total Protein 5.9 L (6.4-8.2) g/dL Albumin 2.3 L (3.4-5.0) g/dL Triglycerides (30-150) mg/dL Cholesterol (100-200) mg/dL LDL Cholesterol, Calc (0-100) mg/dL HDL Cholesterol (40-60) mg/dL Vitamin B12 (193-986) pg/mL Folate (8.6-58.9) ng/mL TSH, Ultra Sensitive (0.358-3.740) mIU/mL Specimen Type Urincc Urine Color Yellow Urine Appearance Clear Urine pH 5.5 (5.0-9.0) Ur Specific [place] <= 1.005 (1.005-1.030) Urine Protein Negative (NEGATIVE) mg/dL Urine Glucose (UA) Negative (NEGATIVE) mg/dL Urine Ketones Negative (NEGATIVE) mg/dL Urine Occult Blood Trace-lysed H (NEGATIVE) Urine Nitrite Negative (NEGATIVE) Urine Bilirubin Negative (NEGATIVE) Urine Urobilinogen 0.2 (0.2-1.0) E.U./dL Ur Leukocyte Esterase Small H (NEGATIVE) Urine RBC 0-5 /HPF Urine WBC 5-10 H /HPF Ur Epithelial Cells Many H /LPF Urine Bacteria Few (NONE TO FEW) /HPF Urine Yeast Moderate H (NEGATIVE) /HPF Job Results Last 24 Hours: Microbiology 07/14/17 06:00 Wound Culture - Final Groin, Left Yeast Microbiology 07/14/17 06:00 Groin, Left Wound Culture - Final Yeast 07/14/17 08:26 Urine, Clean Catch Urine Culture - Final Klebsiella Pneumoniae 07/14/17 06:00 Nasal, Left MRSA (PCR) - Final Med Orders - Current: Current Medications Acetaminophen (Tylenol) 650 mg PO Q4H PRN PRN Reason: Pain (Mild 1-3)/fever Last Admin: 07/18/17 07:33 Dose: 650 mg Amiodarone HCl (Cordarone) 400 mg PO DAILY [facility] Last Admin: 07/18/17 07:23 Dose: 400 mg Aspirin (Aspirin) 81 mg PO DAILY [facility] Last Admin: 07/18/17 07:23 Dose: 81 mg Bisacodyl (Dulcolax) 5 mg PO DAILY PRN PRN Reason: Constipation Calcium Carbonate/Glycine (Tums) 500 mg PO Q2HR PRN PRN Reason: Nausea Ferrous Sulfate (Ferrous Sulfate) 325 mg PO BIDMEALS [facility] Last Admin: 07/18/17 07:22 Dose: 325 mg Gabapentin (Neurontin) 300 mg PO TID [facility] Levothyroxine Sodium (Synthroid) 50 mcg PO ACBREAKFAST [facility] Last Admin: 07/18/17 07:22 Dose: 50 mcg Magnesium Oxide (Magnesium Oxide) 400 mg PO QPM [facility] Last Admin: 07/17/17 17:21 Dose: 400 mg Metoprolol Tartrate (Lopressor) 25 mg PO BID@ [facility] Last Admin: 07/18/17 07:23 Dose: 25 mg Multivitamins/Minerals/Vitamin C (Tab-A-Julia) 1 tab PO DAILY [facility] Last Admin: 07/18/17 07:24 Dose: 1 tab Nitrofurantoin Macrocrystals (Macrobid) 100 mg PO BID [facility] Stop: 07/22/17 18:01 Last Admin: 07/18/17 07:24 Dose: 100 mg Ondansetron HCl (Zofran Odt) 4 mg PO Q6H PRN PRN Reason: Nausea/Vomiting Pantoprazole Sodium (Protonix) 40 mg PO DAILY [facility] Last Admin: 07/18/17 07:24 Dose: 40 mg Ticagrelor (Brilinta) 90 mg PO BID@ [facility] Last Admin: 07/18/17 07:23 Dose: 90 mg Tramadol HCl (Ultram) 50 mg PO Q6H PRN PRN Reason: Breakthrough Pain Discontinued Medications Gabapentin (Neurontin) 300 mg PO BID [facility] Last Admin: 07/18/17 07:24 Dose: 300 mg Prednisone (Prednisone) 5 mg PO DAILY [facility] Last Admin: 07/16/17 07:49 Dose: 5 mg - Exam Quality Assessment: DVT Prophylaxis. No: Supplemental Oxygen, Central Line/PICC , Urine Catheter, Skin Breakdown, Restraints General: Alert, Oriented, Cooperative, No Acute Distress HEENT: Pupils Equal, Pupils Reactive, EOMI, Mucous Membr. Moist/[place] Neck: Supple, Trachea Midline, No JVD, No Thyromegaly. No: +2 Carotid Pulse wo Bruit, Lymphadenopathy, Carotid Bruit Lungs: Clear to Auscultation, Normal Respiratory Effort. No: Rub, Wheezing Cardiovascular: Regular Rate, Regular Rhythm, No Murmurs. No: Gallops, Rubs GI/Abdominal Exam: Normal Bowel Sounds, Soft, Non-Tender, No Organomegaly, No Distention, No Abnormal Bruit, No Mass, Other (Obese). No: Guarding (Female) Exam: Deferred Back Exam: Normal Inspection, Full Range of Motion. No: CVA Tenderness (L), CVA Tenderness (R), Muscle Spasm Extremities: Normal Range of Motion, Non-Tender, Pedal Edema (Somewhat improved trace+1 bilateral pedal/pretibial edema, right greater than left), Other ( Multiple postoperative surgical sites from ECMO, fasciotomy, etc. improving slowly with sutures removed from the axillary regions bilaterally by long term staff. Wet-to-dry dressing in the left inguinal region. 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 No: Kevin's Sign, Increased Warmth Peripheral Pulses: 1+: Dorsalis Pedis (L), Dorsalis Pedis (R), 2+: Radial (L), Radial (R) Skin: Ecchymosis (Surgical sites as above) Wound/Incisions: Healing Well, No Drainage, Erythema Improving Neurological: No New Focal Deficit, Other (Stable moderate to severe generalized weakness with right hemiparesis. Stable moderate resting tremor.) Psy/Mental Status: Alert, Normal Affect, Normal Mood. No: Anxious, Depressed, Agitated, Hallucinations, Withdrawal Symptoms - Problem List & Annotations (1) Coronary artery disease SNOMED Code(s): 41073190 Code(s): I25.10 - ATHSCL HEART DISEASE OF [place] CORONARY ARTERY W/O ANG PCTRS Status: Acute Priority: High Current Visit: Yes Onset Date: Qualifiers: Coronary Disease-Associated Artery/Lesion type: [place] artery [place] vs. transplanted heart: [place] heart Associated angina: without angina Qualified Code(s): I25.10 - Atherosclerotic heart disease of [place] coronary artery without angina pectoris Annotation/Comment:: No chest pain or anginal type symptoms, although patient's overall activity level is extremely low. Significant KS on 05/22/17 as per admission history and physical with severely complicated course. Some arrhythmia noted on admission, however was not present at today's exam. Note current pacemaker and AICD. Blood work reviewed this morning with previous chest x-ray report from 07/14/17 reviewed with no evidence of CHF. Patient's care will be transferred to her regular provider, Manuel Herbert M.D., at the [facility] Blood work, etc. has already been scheduled for 08/17. Cardiology appointment due in about one month at the [facility] with patient planning to call today to set up an appointment with this also to be coordinated through the care management team in this facility. (2) Ventricular fibrillation SNOMED Code(s): 24927075 Code(s): I49.01 - VENTRICULAR FIBRILLATION Status: Chronic Priority: High Current Visit: Yes Onset Date: 05/22/17 Annotation/Comment:: Patient with refractory recurrent ventricular fibrillation as per history and physical. Note current high-dose Brilinta therapy per recommendations from her deckhand clam dredge at discharge. No further Lovenox therapy as DVT prophylaxis at this time secondary to high-dose Brilinta and/or recent history of significant intestinal GI bleed. Note status post AICD and pacemaker placement. (3) CHF (congestive heart failure) SNOMED Code(s): 77160680 Code(s): I50.9 - HEART FAILURE, UNSPECIFIED Status: Acute Priority: High Current Visit: Yes Onset Date: 05/22/17 Qualifiers: Heart failure type: unspecified Heart failure chronicity: chronic Qualified Code(s): I50.9 - Heart failure, unspecified Annotation/Comment:: The patient will call the deckhand clam dredge later today as above and request further guidance concerning the timing of repeat echocardiogram. Consider repeat echocardiogram prior to one month follow-up appointment as above. The patient's blood pressures have improved somewhat since admission, although they are still somewhat low. Continue to observe closely with delay of ARLEEN inhibitor therapy for now. BNP somewhat improved today. (4) Peripheral vascular disease SNOMED Code(s): 179180837 Code(s): I73.9 - PERIPHERAL VASCULAR DISEASE, UNSPECIFIED Status: Acute Priority: High Current Visit: Yes Annotation/Comment:: Significant peripheral vascular disease secondary to complications from ECMO therapy as per history and physical. above. Dry gangrene of the right foot with surgical consultation scheduled for 08/19 for further recommendations of wound care. Possible future toe amputations, however patient is a poor operative candidate. Note secondary peripheral neuropathy with optimal response to low-dose Neurontin therapy, which will be increased today to a 3 times a day regimen. Additional low-dose Ultram therapy for pain control, including prior to physical therapy and occupational therapy, however the patient was reminded to use this with discretion. (5) Hyperlipidemia SNOMED Code(s): 38695400 Code(s): E78.5 - HYPERLIPIDEMIA, UNSPECIFIED Status: Chronic Priority: Medium Current Visit: Yes Qualifiers: Hyperlipidemia type: unspecified Qualified Code(s): E78.5 - Hyperlipidemia , unspecified Annotation/Comment:: Currently under therapy. Lipid panel on 07/14 was normal. Continue current medical therapy. (6) Weakness SNOMED Code(s): 82207214 Code(s): R53.1 - WEAKNESS Status: Acute Priority: High Current Visit: Yes Annotation/Comment:: PT and OT to be continued during swing bed care. Strict fall precautions (7) Mixed anxiety depressive disorder SNOMED Code(s): 796882278 Code(s): F41.8 - OTHER SPECIFIED ANXIETY DISORDERS Status: Chronic Priority: Medium Current Visit: Yes Annotation/Comment:: Stable by patient history with no other change in medical therapy per her request. Continue to observe closely. Excellent control on admission despite recent extensive hospitalization and current health problems. Emotional support also provided to the patient, her , and 2 daughters on day of admission. (8) Tobacco abuse counseling SNOMED Code(s): 471428154, 496607718, 394988306 Code(s): Z71.6 - TOBACCO ABUSE COUNSELING Status: Chronic Current Visit: Yes Annotation/Comment:: Patient congratulated about stopping smoking (9) Hypoalbuminemia SNOMED Code(s): 795273797 Code(s): E88.09 - OTH DISORDERS OF PLASMA-PROTEIN METABOLISM, NEC Status: Acute Priority: High Current Visit: Yes Onset Date: 07/14/17 Annotation/ Comment:: Continue high protein Glucerna supplements as snacks. Repeat blood work already scheduled for one month (10) UTI (urinary tract infection) SNOMED Code(s): 50018246 Code(s): N39.0 - URINARY TRACT INFECTION, SITE NOT SPECIFIED Status: Acute Priority: Medium Current Visit: Yes Onset Date: ~07/16/17 Qualifiers: Urinary tract infection type: acute cystitis Hematuria presence: without hematuria Qualified Code(s): N30.00 - Acute cystitis without hematuria Annotation/Comment:: Positive urine culture for Klebsiella pneumoniae with additional yeast present. Macrobid therapy was initiated by [facility] physician on 07/16 with 1 week of therapy prescribed. Follow-up UA with culture and sensitivity ordered today after completion of above antibiotic therapy. (11) Hypothyroidism (acquired) SNOMED Code(s): 541960572 Code(s): E03.9 - HYPOTHYROIDISM, UNSPECIFIED Status: Acute Priority: Medium Current Visit: Yes Onset Date: 07/14/17 Annotation/Comment:: Synthroid initiated. Follow-up TSH artery ordered for 08/18. (12) Peripheral neuropathy SNOMED Code(s): 266920925 Code(s): G62.9 - POLYNEUROPATHY, UNSPECIFIED Status: Chronic Priority: Medium Current Visit: Yes Onset Date: ~07/14/17 Qualifiers: Peripheral neuropathy type: polyneuropathy, other Qualified Code(s): G62.89 - Other specified polyneuropathies Annotation/Comment:: Peripheral neuropathy likely secondary to peripheral vascular disease and current gangrene as above. Neurontin increased today as above. (13) Hypotension SNOMED Code(s): 99138969 Code(s): I95.9 - HYPOTENSION, UNSPECIFIED Status: Chronic Priority: High Current Visit: Yes Onset Date: 05/22/17 Qualifiers: Hypotension type: other hypotension type Qualified Code(s): I95.89 - Other hypotension Annotation/Comment:: Significant hypotension secondary to ischemic cardiomyopathy. Continue to observe closely as above with further medication adjustments depending on her clinical course. (14) Hypomagnesemia SNOMED Code(s): 141941432 Code(s): E83.42 - HYPOMAGNESEMIA Status: Acute Priority: Medium Current Visit: Yes Onset Date: 07/14/17 Annotation/Comment:: Continue magnesium oxide therapy with some improvement of her magnesium level today. No further dosage adjustments for now. Repeat blood work already scheduled for one month. (15) Iron deficiency anemia SNOMED Code(s): 83800388 Code(s): D50.9 - IRON DEFICIENCY ANEMIA, UNSPECIFIED Status: Chronic Priority: Medium Current Visit: Yes Onset Date: 07/14/17 Qualifiers: Iron deficiency anemia type: other iron deficiency Qualified Code(s): D50.8 - Other iron deficiency anemias Annotation/Comment:: Iron sulfate therapy initiated. Iron deficiency likely secondary to recent lower GI bleed. Repeat blood work already scheduled for one month. Hemoglobin relatively stable today. (16) LFT elevation SNOMED Code(s): 824277083, 520701371 Code(s): R79.89 - OTHER SPECIFIED ABNORMAL FINDINGS OF BLOOD CHEMISTRY Status: Acute Priority: Medium Current Visit: Yes Onset Date: 07/14/17 Annotation/Comment:: Mild LFTs elevation stable today. Likely secondary to chronic CHF from ischemic cardiomyopathy as above. Continue to observe closely. Repeat blood work already scheduled for one month. - Problem List Review Problem List Initiated/Reviewed/Updated: Yes - My Orders Last 24 Hours: My Active Orders 07/18/17 08:09 traMADol [Ultram] 50 mg PO Q6H PRN 07/18/17 12:00 Gabapentin [Neurontin] 300 mg PO TID 07/25/17 05:11 CULTURE URINE [RM] Routine URINALYSIS W/MICROSCOPIC [UA W/MICROSCOPIC] [URIN] Routine 08/17/17 05:11 EKG Documentation Completion [RC] ASDIRECTED Chest 2V [CR] Routine CBC WITH AUTO DIFF [HEME] Routine COMPREHENSIVE METABOLIC PN,CMP [CHEM] Routine IRON/TIBC [CHEM] Routine MAGNESIUM [CHEM] Routine PRO B-TYPE NATRIUR PEPT,BNPPRO [CHEM] Routine TSH ULTRASENSITIVE [CHEM] Stat EKG 12 Lead [EK] Routine - Assessment Assessment:: As above - Plan Plan:: As above. Extensive precautions were given to the patient, who is in agreement with the treatment plan. Manuel Herbert M.D. at the [facility] assumes care and he returns from vacation on 07/20. Otherwise, SAI Mcgill at the [facility] was updated today concerning patient's recent blood work, care, etc.
[2017-07-18] MEDS: Magnesium Oxide 400 MG Tab PO SCH (18:23)
[2017-07-19] MEDS: Ferrous Sulfate 325 MG Tab PO SCH ×2 (08:47→18:02)
[2017-07-19] MEDS: Aspirin 81 MG Tab.Chew PO SCH (08:48)
[2017-07-19] MEDS: Multivitamin Tab PO SCH (08:48)
[2017-07-19] MEDS: Gabapentin 300 MG Cap PO SCH ×3 (08:48→17:52)
[2017-07-19] MEDS: Ticagrelor 90 MG Tab PO SCH ×2 (08:49→19:47)
[2017-07-19] MEDS: Levothyroxine 50 MCG Tab PO SCH (08:49)
[2017-07-19] MEDS: Amiodarone 200 MG Tab PO SCH (08:50)
[2017-07-19] MEDS: Pantoprazole 40 MG Tab.CR PO SCH (08:51)
[2017-07-19] MEDS: Nitrofurantoin Monohydrate/Macrocrystalline 100 MG Cap PO SCH ×2 (08:51→17:51)
[2017-07-19] MEDS: Metoprolol Tartrate 25 MG Tab PO SCH ×2 (08:54→19:41)
[2017-07-19] MEDS: Magnesium Oxide 400 MG Tab PO SCH (18:03)
[2017-07-19] MEDS ORDERED: Diazepam 5 MG Tab PO PRN (18:03)
--- NOTE | 2017-07-19 18:13 | PCM.SN ---
- Free Text/Narrative Note: Patient having increasing problems with anxiety and depression this afternoon. Initial plans to start low dose Ativan on a short term basis, but not available after hours. Initiate low dose diazepam on short term basis with ER script provided. Low dose Celexa wlll be started in the AM.
[2017-07-19] MEDS: traMADol 50 MG Tab PO PRN (18:45)
[2017-07-19] MEDS: [UNRECOGNIZED DRUG - REMARK] PO PRN (18:46)
[2017-07-20] MEDS: Acetaminophen 325 MG Tab PO PRN ×2 (00:46→09:13)
[2017-07-20] MEDS: Levothyroxine 50 MCG Tab PO SCH (07:33)
[2017-07-20] MEDS: Ferrous Sulfate 325 MG Tab PO SCH ×2 (07:33→17:19)
[2017-07-20] MEDS: Aspirin 81 MG Tab.Chew PO SCH (07:34)
[2017-07-20] MEDS: Ticagrelor 90 MG Tab PO SCH ×2 (07:34→20:05)
[2017-07-20] MEDS: Amiodarone 200 MG Tab PO SCH (07:35)
[2017-07-20] MEDS: Metoprolol Tartrate 25 MG Tab PO SCH ×2 (07:35→20:05)
[2017-07-20] MEDS: Gabapentin 300 MG Cap PO SCH ×3 (07:35→17:19)
[2017-07-20] MEDS: Nitrofurantoin Monohydrate/Macrocrystalline 100 MG Cap PO SCH ×2 (07:35→17:19)
[2017-07-20] MEDS: Pantoprazole 40 MG Tab.CR PO SCH (07:36)
[2017-07-20] MEDS: Multivitamin Tab PO SCH (07:36)
[2017-07-20] MEDS ORDERED: Citalopram 20 MG Tab PO SCH (08:00)
[2017-07-20] MEDS: CITALOPRAM 10 MG PO SCH (09:49)
[2017-07-20] MEDS: Atropine/Diphenoxylate 0.025-2.5 MG Tab PO PRN (11:26)
[2017-07-20] MEDS: Magnesium Oxide 400 MG Tab PO SCH (17:19)
--- NOTE | 2017-07-20 17:44 | OR ---
Date of Procedure: 07/20/2017 This 42-year-old female had a severe cardiac event which led to a prolonged stay in the hospital in [place]. She developed arterial insufficiency of the right lower extremity during this event requiring a fasciotomy on that leg and did developed ischemia of the ends of the 5 toes on her right foot. 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 Consultation regarding management of this is requested. Currently, the patient has no sensation in the foot, specifically there is no pain in the foot or the toes. There has also been no drainage or fever and the black portion of the tips of each toe are dry. The great toe along with the second and third toe show a significant portion of the distal aspect of the toe involved with this dry gangrene. The fourth and fifth toes showed the gangrene to be of a lesser amount. The remainder of the toe is pink with satisfactory capillary refill. Currently, the patient is not ambulatory, but is working toward this. The goal of treatment will be to preserve as much of the toes as possible to help her with her ambulation and toward this end I have recommended that we consult with a sizing machine and drier operator to try and determine what will be the best course of action to maximize her ability to ambulate as this condition heals and to decide how much tissue will need to be debrided. Photographs of the foot are taken and we will review these with the sizing machine and drier operator. This was discussed with the patient and her mother who is present, and we will get back to them after podiatry consultation has been obtained. GAIL Lopez MD /[id number] SOTERO
[2017-07-20] MEDS: Ondansetron 4 MG Tab.DIS PO PRN (19:06)
[2017-07-21] MEDS: Multivitamin Tab PO SCH (07:42)
[2017-07-21] MEDS: Ferrous Sulfate 325 MG Tab PO SCH ×2 (07:42→17:45)
[2017-07-21] MEDS: Aspirin 81 MG Tab.Chew PO SCH (07:42)
[2017-07-21] MEDS: Amiodarone 200 MG Tab PO SCH (07:43)
[2017-07-21] MEDS: Pantoprazole 40 MG Tab.CR PO SCH (07:43)
[2017-07-21] MEDS: Nitrofurantoin Monohydrate/Macrocrystalline 100 MG Cap PO SCH ×2 (07:43→17:45)
[2017-07-21] MEDS: Ticagrelor 90 MG Tab PO SCH ×2 (07:43→19:59)
[2017-07-21] MEDS: Gabapentin 300 MG Cap PO SCH ×3 (07:44→17:45)
[2017-07-21] MEDS: Levothyroxine 50 MCG Tab PO SCH (07:44)
[2017-07-21] MEDS: CITALOPRAM 10 MG PO SCH (07:44)
[2017-07-21] MEDS: Metoprolol Tartrate 25 MG Tab PO SCH ×2 (07:44→19:58)
[2017-07-21] MEDS: Acetaminophen 325 MG Tab PO PRN ×2 (07:48→19:59)
[2017-07-21] MEDS: traMADol 50 MG Tab PO PRN ×2 (11:13→19:59)
[2017-07-21] MEDS: Magnesium Oxide 400 MG Tab PO SCH (17:45)
[2017-07-22] MEDS: Multivitamin Tab PO SCH (09:10)
[2017-07-22] MEDS: Aspirin 81 MG Tab.Chew PO SCH (09:10)
[2017-07-22] MEDS: Pantoprazole 40 MG Tab.CR PO SCH (09:10)
[2017-07-22] MEDS: Ferrous Sulfate 325 MG Tab PO SCH ×2 (09:10→17:53)
[2017-07-22] MEDS: Ticagrelor 90 MG Tab PO SCH ×2 (09:11→21:04)
[2017-07-22] MEDS: Amiodarone 200 MG Tab PO SCH (09:11)
[2017-07-22] MEDS: Nitrofurantoin Monohydrate/Macrocrystalline 100 MG Cap PO SCH ×2 (09:11→17:54)
[2017-07-22] MEDS: CITALOPRAM 10 MG PO SCH (09:11)
[2017-07-22] MEDS: Gabapentin 300 MG Cap PO SCH ×3 (09:12→17:54)
[2017-07-22] MEDS: Levothyroxine 50 MCG Tab PO SCH (09:12)
[2017-07-22] MEDS: Metoprolol Tartrate 25 MG Tab PO SCH ×2 (10:43→21:03)
[2017-07-22] MEDS: Ondansetron 4 MG Tab.DIS PO PRN (13:54)
[2017-07-22] MEDS: Magnesium Oxide 400 MG Tab PO SCH (17:53)
[2017-07-23] MEDS: Ferrous Sulfate 325 MG Tab PO SCH ×2 (07:39→17:14)
[2017-07-23] MEDS: Amiodarone 200 MG Tab PO SCH (07:40)
[2017-07-23] MEDS: Levothyroxine 50 MCG Tab PO SCH (07:40)
[2017-07-23] MEDS: Ticagrelor 90 MG Tab PO SCH ×2 (07:40→21:08)
[2017-07-23] MEDS: Aspirin 81 MG Tab.Chew PO SCH (07:40)
[2017-07-23] MEDS: Pantoprazole 40 MG Tab.CR PO SCH (07:41)
[2017-07-23] MEDS: Gabapentin 300 MG Cap PO SCH ×3 (07:41→17:15)
[2017-07-23] MEDS: Multivitamin Tab PO SCH (07:41)
[2017-07-23] MEDS: CITALOPRAM 10 MG PO SCH (07:41)
[2017-07-23] MEDS: Metoprolol Tartrate 25 MG Tab PO SCH ×2 (09:09→21:08)
[2017-07-23] MEDS: Magnesium Oxide 400 MG Tab PO SCH (17:15)
[2017-07-23] MEDS: Atropine/Diphenoxylate 0.025-2.5 MG Tab PO PRN (17:38)
--- NOTE | 2017-07-23 22:25 | PCM.SN ---
- Free Text/Narrative Note: patient seenat the request of nurses states that they notice increased rednessright infraclavicularwherethe central line was at one time at this timepatient was examined Physical exam normocephalic atraumatic pleasant femalewho complainsof tenderness right infraclavicular areaat this time she is normocephalic atraumatic neck supple lungs clear auscultation mid clavicular area and fluctuates as if there was fluid in the red tender to touch assessmentpossible infected area or old subclavian catheter was placed cBC was within normal limits WBCs 9.6 blood cultures pending at this time I will start her zosyn3.75 mg IVevery 6 hours and possibly drain in the morning
[2017-07-23] MEDS: Piperacillin/Tazobactam 3.375 GM in Sodium Chloride 0.9% 100 ML IV SCH (23:59)
[2017-07-24] MEDS: Sodium Chloride 0.9% 10 ML Syringe FLUSH PRN ×4 (05:08→21:47)
[2017-07-24] MEDS: Piperacillin/Tazobactam 3.375 GM in Sodium Chloride 0.9% 100 ML IV SCH ×4 (05:08→21:46)
[2017-07-24] MEDS: Ticagrelor 90 MG Tab PO SCH ×2 (08:13→20:00)
[2017-07-24] MEDS: Ferrous Sulfate 325 MG Tab PO SCH ×2 (08:13→17:15)
[2017-07-24] MEDS: Multivitamin Tab PO SCH (08:13)
[2017-07-24] MEDS: Amiodarone 200 MG Tab PO SCH (08:13)
[2017-07-24] MEDS: Levothyroxine 50 MCG Tab PO SCH (08:13)
[2017-07-24] MEDS: Aspirin 81 MG Tab.Chew PO SCH (08:13)
[2017-07-24] MEDS: CITALOPRAM 10 MG PO SCH (08:16)
[2017-07-24] MEDS: Metoprolol Tartrate 25 MG Tab PO SCH ×2 (08:16→20:07)
[2017-07-24] MEDS: Gabapentin 300 MG Cap PO SCH ×3 (08:16→17:15)
[2017-07-24] MEDS: Pantoprazole 40 MG Tab.CR PO SCH (08:16)
[2017-07-24] MEDS: traMADol 50 MG Tab PO PRN (10:12)
[2017-07-24] MEDS ORDERED: Lidocaine/Prilocaine 2.5-2.5% Crm 5 GM Tube TOP ONE (13:09)
[2017-07-24] MEDS ORDERED: Lidocaine 2% 5 ML SDV INJECT ONE (13:10)
[2017-07-24] MEDS: Ondansetron 4 MG Tab.DIS PO PRN (13:28)
[2017-07-24] MEDS: [UNRECOGNIZED DRUG - REMARK] PO PRN (13:28)
--- NOTE | 2017-07-24 14:29 | PCM.SN ---
- Free Text/Narrative Note: Short history patient is a 42-year-old who underwent on a massive coronary [place] was in intensive care for about 50 days had multiple lines at this time the right sub-clavian line had been removed about a couple weeks ago and now developed an abscess exam reveal absence to be fluctuant a painful at this time we decided to I and D. Preoperative diagnosis abscess subclavicular right Postoperative diagnosis same Surgeon Manuel Herbert Procedure I&D of abscess Estimated blood los 1 mL Anesthesi local 2% lidocaine Othe culture of wound and abscess procedure area was prepped and draped using chlorhexidine once the area was cleaned and draped 2% Xylocaine was infiltrated around the abscess was the area was numbed using a 15 blade the abscess was opened and drained the abscess was irrigated clean cultures obtained and wound was packed with half inch packing gauze medicated.
[2017-07-24] MEDS: Magnesium Oxide 400 MG Tab PO SCH (17:15)
[2017-07-25] MEDS: Piperacillin/Tazobactam 3.375 GM in Sodium Chloride 0.9% 100 ML IV SCH ×3 (03:34→16:54)
[2017-07-25] MEDS: Sodium Chloride 0.9% 10 ML Syringe FLUSH PRN ×3 (03:35→16:54)
[2017-07-25] MEDS: Multivitamin Tab PO SCH (07:37)
[2017-07-25] MEDS: Ferrous Sulfate 325 MG Tab PO SCH ×2 (07:37→16:55)
[2017-07-25] MEDS: Aspirin 81 MG Tab.Chew PO SCH (07:37)
[2017-07-25] MEDS: CITALOPRAM 10 MG PO SCH (07:38)
[2017-07-25] MEDS: Levothyroxine 50 MCG Tab PO SCH (07:38)
[2017-07-25] MEDS: Amiodarone 200 MG Tab PO SCH (07:38)
[2017-07-25] MEDS: Ticagrelor 90 MG Tab PO SCH ×2 (07:38→20:15)
[2017-07-25] MEDS: Gabapentin 300 MG Cap PO SCH ×4 (07:38→17:19)
[2017-07-25] MEDS: Pantoprazole 40 MG Tab.CR PO SCH (07:39)
[2017-07-25] MEDS: Metoprolol Tartrate 25 MG Tab PO SCH ×2 (07:47→20:20)
[2017-07-25] MEDS: Magnesium Oxide 400 MG Tab PO SCH ×2 (16:56→17:19)
[2017-07-25] MEDS: [UNRECOGNIZED DRUG - REMARK] PO PRN (17:40)
[2017-07-25] MEDS: Acetaminophen 325 MG Tab PO PRN (20:25)
[2017-07-25] MEDS: traMADol 50 MG Tab PO PRN (20:26)
[2017-07-26] MEDS: Ticagrelor 90 MG Tab PO SCH ×2 (07:38→20:55)
[2017-07-26] MEDS: Amiodarone 200 MG Tab PO SCH (07:38)
[2017-07-26] MEDS: Levothyroxine 50 MCG Tab PO SCH (07:38)
[2017-07-26] MEDS: Pantoprazole 40 MG Tab.CR PO SCH (07:39)
[2017-07-26] MEDS: CITALOPRAM 10 MG PO SCH (07:39)
[2017-07-26] MEDS: Acetaminophen 325 MG Tab PO PRN (07:39)
[2017-07-26] MEDS: traMADol 50 MG Tab PO PRN (07:41)
[2017-07-26] MEDS: Multivitamin Tab PO SCH (08:00)
[2017-07-26] MEDS: Aspirin 81 MG Tab.Chew PO SCH (08:00)
[2017-07-26] MEDS: Ferrous Sulfate 325 MG Tab PO SCH ×2 (08:00→17:16)
[2017-07-26] MEDS ORDERED: Amoxicillin/Clavulanate K 875-125 MG Tab PO SCH (08:00)
[2017-07-26] MEDS: Metoprolol Tartrate 25 MG Tab PO SCH ×2 (08:00→20:55)
[2017-07-26] MEDS: Gabapentin 300 MG Cap PO SCH ×3 (08:01→17:16)
[2017-07-26] MEDS: Atropine/Diphenoxylate 0.025-2.5 MG Tab PO PRN (09:01)
[2017-07-26] MEDS: Ondansetron 4 MG Tab.DIS PO PRN (09:45)
[2017-07-26] MEDS: Magnesium Oxide 400 MG Tab PO SCH (17:16)
[2017-07-27] MEDS: Acetaminophen 325 MG Tab PO PRN (07:23)
[2017-07-27] MEDS: Ferrous Sulfate 325 MG Tab PO SCH ×2 (07:23→17:30)
[2017-07-27] MEDS: Aspirin 81 MG Tab.Chew PO SCH (07:23)
[2017-07-27] MEDS: Multivitamin Tab PO SCH (07:23)
[2017-07-27] MEDS: Pantoprazole 40 MG Tab.CR PO SCH (07:24)
[2017-07-27] MEDS: Amiodarone 200 MG Tab PO SCH (07:24)
[2017-07-27] MEDS: Ticagrelor 90 MG Tab PO SCH ×2 (07:24→21:00)
[2017-07-27] MEDS: Levothyroxine 50 MCG Tab PO SCH (07:24)
[2017-07-27] MEDS: Gabapentin 300 MG Cap PO SCH ×3 (07:24→17:30)
[2017-07-27] MEDS: Metoprolol Tartrate 25 MG Tab PO SCH ×2 (07:24→21:00)
[2017-07-27] MEDS: CITALOPRAM 10 MG PO SCH (07:24)
[2017-07-27] MEDS: traMADol 50 MG Tab PO PRN (07:26)
[2017-07-27] MEDS: Ondansetron 4 MG Tab.DIS PO PRN (08:46)
[2017-07-27] MEDS: Atropine/Diphenoxylate 0.025-2.5 MG Tab PO PRN (11:43)
[2017-07-27] MEDS: Nystatin Crm 30 GM Tube TOP SCH (17:30)
[2017-07-27] MEDS: Magnesium Oxide 400 MG Tab PO SCH (17:30)
[2017-07-27] MEDS: FLUCONAZOLE 150MG TABLET PO SCH (17:30)
[2017-07-28] MEDS: Ferrous Sulfate 325 MG Tab PO SCH ×2 (07:44→17:57)
[2017-07-28] MEDS: Multivitamin Tab PO SCH (07:45)
[2017-07-28] MEDS: CITALOPRAM 10 MG PO SCH (07:45)
[2017-07-28] MEDS: Levothyroxine 50 MCG Tab PO SCH (07:45)
[2017-07-28] MEDS: Pantoprazole 40 MG Tab.CR PO SCH (07:45)
[2017-07-28] MEDS: Gabapentin 300 MG Cap PO SCH ×3 (07:45→17:58)
[2017-07-28] MEDS: Aspirin 81 MG Tab.Chew PO SCH (07:45)
[2017-07-28] MEDS: Ticagrelor 90 MG Tab PO SCH ×2 (07:46→19:33)
[2017-07-28] MEDS: Amiodarone 200 MG Tab PO SCH (07:46)
[2017-07-28] MEDS: Metoprolol Tartrate 25 MG Tab PO SCH ×2 (07:47→19:39)
[2017-07-28] MEDS: Nystatin Crm 30 GM Tube TOP SCH ×2 (17:56→17:58)
[2017-07-28] MEDS: Magnesium Oxide 400 MG Tab PO SCH (17:57)
[2017-07-28] MEDS: FLUCONAZOLE 150MG TABLET PO SCH (18:03)
[2017-07-28] MEDS: traMADol 50 MG Tab PO PRN (18:03)
[2017-07-29] MEDS: Ferrous Sulfate 325 MG Tab PO SCH ×2 (07:29→20:42)
[2017-07-29] MEDS: Aspirin 81 MG Tab.Chew PO SCH (07:30)
[2017-07-29] MEDS: Multivitamin Tab PO SCH (07:30)
[2017-07-29] MEDS: Levothyroxine 50 MCG Tab PO SCH (07:32)
[2017-07-29] MEDS: Gabapentin 300 MG Cap PO SCH ×3 (07:32→20:42)
[2017-07-29] MEDS: Ticagrelor 90 MG Tab PO SCH ×2 (07:33→20:42)
[2017-07-29] MEDS: CITALOPRAM 10 MG PO SCH (07:33)
[2017-07-29] MEDS: Pantoprazole 40 MG Tab.CR PO SCH (07:33)
[2017-07-29] MEDS: Amiodarone 200 MG Tab PO SCH (07:33)
[2017-07-29] MEDS: Metoprolol Tartrate 25 MG Tab PO SCH ×2 (07:34→20:41)
[2017-07-29] MEDS: Nystatin Crm 30 GM Tube TOP SCH ×3 (07:35→20:42)
[2017-07-29] MEDS: Ondansetron 4 MG Tab.DIS PO PRN (09:38)
[2017-07-29] MEDS: Magnesium Oxide 400 MG Tab PO SCH (20:42)
[2017-07-30] MEDS: Multivitamin Tab PO SCH (08:33)
[2017-07-30] MEDS: Metoprolol Tartrate 25 MG Tab PO SCH ×2 (08:33→19:25)
[2017-07-30] MEDS: Ferrous Sulfate 325 MG Tab PO SCH ×2 (08:33→17:28)
[2017-07-30] MEDS: CITALOPRAM 10 MG PO SCH (08:34)
[2017-07-30] MEDS: Levothyroxine 50 MCG Tab PO SCH (08:34)
[2017-07-30] MEDS: Pantoprazole 40 MG Tab.CR PO SCH (08:34)
[2017-07-30] MEDS: Gabapentin 300 MG Cap PO SCH ×3 (08:34→17:28)
[2017-07-30] MEDS: Aspirin 81 MG Tab.Chew PO SCH (08:34)
[2017-07-30] MEDS: Ticagrelor 90 MG Tab PO SCH ×2 (08:35→19:24)
[2017-07-30] MEDS: Nystatin Crm 30 GM Tube TOP SCH ×2 (08:35→11:49)
[2017-07-30] MEDS: Amiodarone 200 MG Tab PO SCH (08:35)
[2017-07-30] MEDS: Acetaminophen 325 MG Tab PO PRN (08:39)
[2017-07-30] MEDS: Magnesium Oxide 400 MG Tab PO SCH (17:28)
[2017-07-31] MEDS: Ferrous Sulfate 325 MG Tab PO SCH ×2 (07:43→17:38)
[2017-07-31] MEDS: Metoprolol Tartrate 25 MG Tab PO SCH ×2 (07:44→19:14)
[2017-07-31] MEDS: Multivitamin Tab PO SCH (07:44)
[2017-07-31] MEDS: Aspirin 81 MG Tab.Chew PO SCH (07:44)
[2017-07-31] MEDS: Pantoprazole 40 MG Tab.CR PO SCH (07:45)
[2017-07-31] MEDS: Gabapentin 300 MG Cap PO SCH ×3 (07:45→17:38)
[2017-07-31] MEDS: Levothyroxine 50 MCG Tab PO SCH (07:45)
[2017-07-31] MEDS: CITALOPRAM 10 MG PO SCH (07:45)
[2017-07-31] MEDS: Amiodarone 200 MG Tab PO SCH (07:46)
[2017-07-31] MEDS: Ticagrelor 90 MG Tab PO SCH ×2 (07:46→19:11)
[2017-07-31] MEDS: Magnesium Oxide 400 MG Tab PO SCH (17:38)
[2017-07-31] MEDS: Ondansetron 4 MG Tab.DIS PO PRN (19:06)
[2017-08-01] MEDS: Atropine/Diphenoxylate 0.025-2.5 MG Tab PO PRN ×2 (04:26→14:47)
[2017-08-01] MEDS: Ondansetron 4 MG Tab.DIS PO PRN (04:26)
[2017-08-01] MEDS: Levothyroxine 50 MCG Tab PO SCH (08:09)
[2017-08-01] MEDS: Ferrous Sulfate 325 MG Tab PO SCH ×2 (08:09→17:43)
[2017-08-01] MEDS: Aspirin 81 MG Tab.Chew PO SCH (08:10)
[2017-08-01] MEDS: Ticagrelor 90 MG Tab PO SCH ×2 (08:10→19:43)
[2017-08-01] MEDS: Metoprolol Tartrate 25 MG Tab PO SCH ×2 (08:11→19:34)
[2017-08-01] MEDS: Amiodarone 200 MG Tab PO SCH (08:11)
[2017-08-01] MEDS: CITALOPRAM 10 MG PO SCH (08:12)
[2017-08-01] MEDS: Gabapentin 300 MG Cap PO SCH ×3 (08:12→17:43)
[2017-08-01] MEDS: Pantoprazole 40 MG Tab.CR PO SCH (08:13)
[2017-08-01] MEDS: Multivitamin Tab PO SCH (08:13)
[2017-08-01] MEDS: traMADol 50 MG Tab PO PRN (15:41)
[2017-08-01] MEDS: Magnesium Oxide 400 MG Tab PO SCH (17:43)
[2017-08-02] MEDS: Multivitamin Tab PO SCH (08:25)
[2017-08-02] MEDS: Ferrous Sulfate 325 MG Tab PO SCH ×2 (08:25→17:11)
[2017-08-02] MEDS: Levothyroxine 50 MCG Tab PO SCH (08:25)
[2017-08-02] MEDS: Ticagrelor 90 MG Tab PO SCH ×2 (08:25→19:42)
[2017-08-02] MEDS: Pantoprazole 40 MG Tab.CR PO SCH (08:26)
[2017-08-02] MEDS: Metoprolol Tartrate 25 MG Tab PO SCH ×2 (08:26→19:39)
[2017-08-02] MEDS: Aspirin 81 MG Tab.Chew PO SCH (08:26)
[2017-08-02] MEDS: Gabapentin 300 MG Cap PO SCH ×3 (08:26→17:11)
[2017-08-02] MEDS: Amiodarone 200 MG Tab PO SCH (08:26)
[2017-08-02] MEDS: CITALOPRAM 10 MG PO SCH (08:26)
[2017-08-02] MEDS: [UNRECOGNIZED DRUG - REMARK] PO PRN (10:21)
[2017-08-02] MEDS: traMADol 50 MG Tab PO PRN (10:22)
[2017-08-02] MEDS: Magnesium Oxide 400 MG Tab PO SCH (17:11)
[2017-08-03] MEDS: Ferrous Sulfate 325 MG Tab PO SCH ×2 (08:34→17:31)
[2017-08-03] MEDS: Levothyroxine 50 MCG Tab PO SCH (08:34)
[2017-08-03] MEDS: Ticagrelor 90 MG Tab PO SCH ×2 (08:35→20:28)
[2017-08-03] MEDS: Amiodarone 200 MG Tab PO SCH (08:35)
[2017-08-03] MEDS: CITALOPRAM 10 MG PO SCH (08:35)
[2017-08-03] MEDS: Gabapentin 300 MG Cap PO SCH ×3 (08:35→17:31)
[2017-08-03] MEDS: Aspirin 81 MG Tab.Chew PO SCH (08:35)
[2017-08-03] MEDS: Metoprolol Tartrate 25 MG Tab PO SCH ×2 (08:35→20:27)
[2017-08-03] MEDS: Multivitamin Tab PO SCH (08:36)
[2017-08-03] MEDS: Pantoprazole 40 MG Tab.CR PO SCH (08:36)
[2017-08-03] MEDS: Ondansetron 4 MG Tab.DIS PO PRN (15:07)
[2017-08-03] MEDS: Atropine/Diphenoxylate 0.025-2.5 MG Tab PO PRN (15:07)
--- NOTE | 2017-08-03 16:34 | PCM.SN ---
- Free Text/Narrative Note: patient is having increased neuropathy pain to lower legs. Nursing staff inquired about options. This provider, discussed with Dr. Herbert. We agreed that we could increased patient's gabapentin to 600mg TID and monitor effects.
[2017-08-03] MEDS: Magnesium Oxide 400 MG Tab PO SCH (17:31)
[2017-08-03] MEDS: Acetaminophen 325 MG Tab PO PRN (19:13)
[2017-08-03] MEDS: traMADol 50 MG Tab PO PRN (19:15)
[2017-08-04] MEDS: Aspirin 81 MG Tab.Chew PO SCH (10:19)
[2017-08-04] MEDS: Levothyroxine 50 MCG Tab PO SCH (10:19)
[2017-08-04] MEDS: Multivitamin Tab PO SCH (10:19)
[2017-08-04] MEDS: Gabapentin 300 MG Cap PO SCH ×3 (10:20→18:15)
[2017-08-04] MEDS: Metoprolol Tartrate 25 MG Tab PO SCH ×2 (10:20→20:27)
[2017-08-04] MEDS: Amiodarone 200 MG Tab PO SCH (10:20)
[2017-08-04] MEDS: Ticagrelor 90 MG Tab PO SCH ×2 (10:20→20:27)
[2017-08-04] MEDS: Ferrous Sulfate 325 MG Tab PO SCH ×2 (14:25→18:15)
[2017-08-04] MEDS: Magnesium Oxide 400 MG Tab PO SCH (18:15)
[2017-08-04] MEDS: Pantoprazole 40 MG Tab.CR PO SCH (20:27)
[2017-08-04] MEDS: CITALOPRAM 10 MG PO SCH (20:27)
[2017-08-04] MEDS: Acetaminophen 325 MG Tab PO PRN (23:07)
[2017-08-04] MEDS: traMADol 50 MG Tab PO PRN (23:08)
[2017-08-05] MEDS: Levothyroxine 50 MCG Tab PO SCH (10:26)
[2017-08-05] MEDS: Amiodarone 200 MG Tab PO SCH (10:27)
[2017-08-05] MEDS: Ticagrelor 90 MG Tab PO SCH ×2 (10:27→21:15)
[2017-08-05] MEDS: Metoprolol Tartrate 25 MG Tab PO SCH ×2 (10:29→20:22)
[2017-08-05] MEDS: Gabapentin 300 MG Cap PO SCH ×3 (10:29→18:56)
[2017-08-05] MEDS: Aspirin 81 MG Tab.Chew PO SCH (10:37)
[2017-08-05] MEDS: Multivitamin Tab PO SCH (10:37)
[2017-08-05] MEDS: Ferrous Sulfate 325 MG Tab PO SCH ×2 (12:13→18:56)
[2017-08-05] MEDS: Magnesium Oxide 400 MG Tab PO SCH (18:56)
[2017-08-05] MEDS: traMADol 50 MG Tab PO PRN (19:03)
[2017-08-05] MEDS: CITALOPRAM 10 MG PO SCH (21:15)
[2017-08-05] MEDS: Pantoprazole 40 MG Tab.CR PO SCH (21:15)
[2017-08-05] MEDS: Acetaminophen 325 MG Tab PO PRN (21:16)
[2017-08-06] MEDS: Metoprolol Tartrate 25 MG Tab PO SCH ×2 (09:32→19:51)
[2017-08-06] MEDS: Levothyroxine 50 MCG Tab PO SCH (09:50)
[2017-08-06] MEDS: Multivitamin Tab PO SCH (09:50)
[2017-08-06] MEDS: Amiodarone 200 MG Tab PO SCH (09:50)
[2017-08-06] MEDS: Ticagrelor 90 MG Tab PO SCH ×2 (09:51→19:51)
[2017-08-06] MEDS: Gabapentin 300 MG Cap PO SCH ×3 (09:51→17:45)
[2017-08-06] MEDS: Aspirin 81 MG Tab.Chew PO SCH (09:54)
[2017-08-06] MEDS: Ferrous Sulfate 325 MG Tab PO SCH ×2 (12:46→17:44)
[2017-08-06] MEDS: Magnesium Oxide 400 MG Tab PO SCH (17:45)
[2017-08-06] MEDS: CITALOPRAM 10 MG PO SCH (19:51)
[2017-08-06] MEDS: Pantoprazole 40 MG Tab.CR PO SCH (19:51)
[2017-08-07] MEDS: Multivitamin Tab PO SCH (09:49)
[2017-08-07] MEDS: Aspirin 81 MG Tab.Chew PO SCH (09:49)
[2017-08-07] MEDS: Amiodarone 200 MG Tab PO SCH (09:50)
[2017-08-07] MEDS: Gabapentin 300 MG Cap PO SCH ×3 (09:50→18:22)
[2017-08-07] MEDS: Levothyroxine 50 MCG Tab PO SCH (09:50)
[2017-08-07] MEDS: Ticagrelor 90 MG Tab PO SCH ×2 (09:50→21:28)
[2017-08-07] MEDS: Metoprolol Tartrate 25 MG Tab PO SCH ×2 (09:51→21:27)
[2017-08-07] MEDS: Ferrous Sulfate 325 MG Tab PO SCH ×2 (12:25→18:22)
[2017-08-07] MEDS: Ondansetron 4 MG Tab.DIS PO PRN (13:11)
[2017-08-07] MEDS: Atropine/Diphenoxylate 0.025-2.5 MG Tab PO PRN (13:12)
[2017-08-07] MEDS: Magnesium Oxide 400 MG Tab PO SCH (18:22)
[2017-08-07] MEDS: Pantoprazole 40 MG Tab.CR PO SCH (21:28)
[2017-08-07] MEDS: CITALOPRAM 10 MG PO SCH (21:28)
[2017-08-08] MEDS: Aspirin 81 MG Tab.Chew PO SCH (10:13)
[2017-08-08] MEDS: Multivitamin Tab PO SCH (10:13)
[2017-08-08] MEDS: Gabapentin 300 MG Cap PO SCH ×3 (10:14→17:51)
[2017-08-08] MEDS: Levothyroxine 50 MCG Tab PO SCH (10:14)
[2017-08-08] MEDS: Amiodarone 200 MG Tab PO SCH (10:15)
[2017-08-08] MEDS: Ticagrelor 90 MG Tab PO SCH ×2 (10:15→21:03)
[2017-08-08] MEDS: Metoprolol Tartrate 25 MG Tab PO SCH ×2 (10:15→21:04)
[2017-08-08] MEDS: Ferrous Sulfate 325 MG Tab PO SCH ×2 (14:28→17:51)
[2017-08-08] MEDS ORDERED: Ferrous Sulfate 325 MG Tab ONE (17:49)
[2017-08-08] MEDS: Magnesium Oxide 400 MG Tab PO SCH (17:50)
[2017-08-08] MEDS: Atropine/Diphenoxylate 0.025-2.5 MG Tab PO PRN (17:53)
[2017-08-08] MEDS: CITALOPRAM 10 MG PO SCH (21:04)
[2017-08-08] MEDS: Pantoprazole 40 MG Tab.CR PO SCH (21:05)
[2017-08-09] MEDS: Levothyroxine 50 MCG Tab PO SCH (10:53)
[2017-08-09] MEDS: Metoprolol Tartrate 25 MG Tab PO SCH ×2 (10:53→21:39)
[2017-08-09] MEDS: Ticagrelor 90 MG Tab PO SCH ×2 (10:53→21:36)
[2017-08-09] MEDS: Aspirin 81 MG Tab.Chew PO SCH (10:53)
[2017-08-09] MEDS: Amiodarone 200 MG Tab PO SCH ×2 (10:53→21:37)
[2017-08-09] MEDS: Multivitamin Tab PO SCH (10:54)
[2017-08-09] MEDS: Gabapentin 300 MG Cap PO SCH ×4 (10:54→21:37)
[2017-08-09] MEDS: Ferrous Sulfate 325 MG Tab PO SCH ×2 (14:50→18:06)
[2017-08-09] MEDS: Magnesium Oxide 400 MG Tab PO SCH (18:06)
[2017-08-09] MEDS: CITALOPRAM 10 MG PO SCH (21:36)
[2017-08-09] MEDS: Pantoprazole 40 MG Tab.CR PO SCH (21:36)
[2017-08-10] MEDS: Ondansetron 4 MG Tab.DIS PO PRN (06:52)
[2017-08-10] MEDS: Atropine/Diphenoxylate 0.025-2.5 MG Tab PO PRN (06:56)
[2017-08-10] MEDS: Aspirin 81 MG Tab.Chew PO SCH (10:03)
[2017-08-10] MEDS: Multivitamin Tab PO SCH (10:04)
[2017-08-10] MEDS: Ticagrelor 90 MG Tab PO SCH ×2 (10:06→22:00)
[2017-08-10] MEDS: Amiodarone 200 MG Tab PO SCH ×2 (10:06→22:00)
[2017-08-10] MEDS: Gabapentin 300 MG Cap PO SCH ×3 (10:06→22:00)
[2017-08-10] MEDS: Metoprolol Tartrate 25 MG Tab PO SCH ×2 (10:06→22:00)
[2017-08-10] MEDS: Levothyroxine 50 MCG Tab PO SCH (10:07)
[2017-08-10] MEDS: Ferrous Sulfate 325 MG Tab PO SCH ×2 (11:48→17:57)
[2017-08-10] MEDS: Magnesium Oxide 400 MG Tab PO SCH (17:57)
[2017-08-10] MEDS: CITALOPRAM 10 MG PO SCH (22:00)
[2017-08-10] MEDS: Pantoprazole 40 MG Tab.CR PO SCH (22:00)
[2017-08-11] MEDS: Aspirin 81 MG Tab.Chew PO SCH (09:44)
[2017-08-11] MEDS: Ticagrelor 90 MG Tab PO SCH ×2 (09:45→21:54)
[2017-08-11] MEDS: Amiodarone 200 MG Tab PO SCH ×2 (09:45→21:53)
[2017-08-11] MEDS: Metoprolol Tartrate 25 MG Tab PO SCH ×2 (09:45→21:53)
[2017-08-11] MEDS: Levothyroxine 50 MCG Tab PO SCH (09:59)
[2017-08-11] MEDS: Gabapentin 300 MG Cap PO SCH ×3 (09:59→21:53)
[2017-08-11] MEDS: Multivitamin Tab PO SCH (09:59)
[2017-08-11] MEDS: Ferrous Sulfate 325 MG Tab PO SCH ×2 (13:26→19:51)
[2017-08-11] MEDS: Magnesium Oxide 400 MG Tab PO SCH (19:51)
[2017-08-11] MEDS: CITALOPRAM 10 MG PO SCH (21:54)
[2017-08-11] MEDS: Pantoprazole 40 MG Tab.CR PO SCH (21:54)
[2017-08-12] MEDS: Ondansetron 4 MG Tab.DIS PO PRN (06:19)
[2017-08-12] MEDS: Atropine/Diphenoxylate 0.025-2.5 MG Tab PO PRN (06:19)
[2017-08-12] MEDS: Ticagrelor 90 MG Tab PO SCH ×2 (09:23→22:14)
[2017-08-12] MEDS: Amiodarone 200 MG Tab PO SCH ×2 (09:24→22:14)
[2017-08-12] MEDS: Metoprolol Tartrate 25 MG Tab PO SCH ×2 (09:25→22:13)
[2017-08-12] MEDS: Levothyroxine 50 MCG Tab PO SCH (09:26)
[2017-08-12] MEDS: Gabapentin 300 MG Cap PO SCH ×3 (09:26→22:13)
[2017-08-12] MEDS: Aspirin 81 MG Tab.Chew PO SCH (09:26)
[2017-08-12] MEDS: Multivitamin Tab PO SCH (09:26)
[2017-08-12] MEDS: Ferrous Sulfate 325 MG Tab PO SCH ×2 (12:22→17:49)
[2017-08-12] MEDS: Magnesium Oxide 400 MG Tab PO SCH (17:49)
[2017-08-12] MEDS: LORazepam 0.5 MG Tab ** OWN MED PO PRN (22:13)
[2017-08-12] MEDS: Pantoprazole 40 MG Tab.CR PO SCH (22:14)
[2017-08-12] MEDS: CITALOPRAM 10 MG PO SCH (22:14)
[2017-08-13] MEDS: Aspirin 81 MG Tab.Chew PO SCH (10:06)
[2017-08-13] MEDS: Ticagrelor 90 MG Tab PO SCH ×2 (10:06→22:42)
[2017-08-13] MEDS: Multivitamin Tab PO SCH (10:06)
[2017-08-13] MEDS: Gabapentin 300 MG Cap PO SCH ×3 (10:07→22:42)
[2017-08-13] MEDS: Amiodarone 200 MG Tab PO SCH ×2 (10:07→22:42)
[2017-08-13] MEDS: Levothyroxine 50 MCG Tab PO SCH (10:07)
[2017-08-13] MEDS: Metoprolol Tartrate 25 MG Tab PO SCH ×2 (10:13→22:43)
[2017-08-13] MEDS: Ferrous Sulfate 325 MG Tab PO SCH ×2 (12:27→17:56)
[2017-08-13] MEDS: Magnesium Oxide 400 MG Tab PO SCH (17:56)
[2017-08-13] MEDS: Atropine/Diphenoxylate 0.025-2.5 MG Tab PO PRN (22:40)
[2017-08-13] MEDS: Ondansetron 4 MG Tab.DIS PO PRN (22:40)
[2017-08-13] MEDS: traMADol 50 MG Tab PO PRN (22:41)
[2017-08-13] MEDS: CITALOPRAM 10 MG PO SCH (22:42)
[2017-08-13] MEDS: Pantoprazole 40 MG Tab.CR PO SCH (22:42)
[2017-08-14] MEDS: Atropine/Diphenoxylate 0.025-2.5 MG Tab PO PRN (06:05)
[2017-08-14] MEDS: LORazepam 0.5 MG Tab ** OWN MED PO PRN ×2 (06:05→21:39)
[2017-08-14 08:12] LABS: CHLORIDE,CL 108 mmol/L (98-107); SODIUM,NA 142 mmol/L (136-145)
[2017-08-14] MEDS: Multivitamin Tab PO SCH (09:46)
[2017-08-14] MEDS: Ticagrelor 90 MG Tab PO SCH ×2 (09:46→21:30)
[2017-08-14] MEDS: Amiodarone 200 MG Tab PO SCH ×2 (09:47→21:32)
[2017-08-14] MEDS: Metoprolol Tartrate 25 MG Tab PO SCH ×2 (09:47→21:29)
[2017-08-14] MEDS: Aspirin 81 MG Tab.Chew PO SCH (09:47)
[2017-08-14] MEDS: Levothyroxine 50 MCG Tab PO SCH (09:48)
[2017-08-14] MEDS: Gabapentin 300 MG Cap PO SCH ×3 (09:48→21:31)
[2017-08-14] MEDS: Ferrous Sulfate 325 MG Tab PO SCH ×2 (11:34→17:31)
--- NOTE | 2017-08-14 12:47 | PCM.DCSUM1 ---
Discharge Summary - Hospital Course Free Text/Narrative:: Patient is being discharged home on August 15, 2017 following a lengthy hospitalization for SCAD. She was arrested on May 22 in [place] and was transported to [place], further being transferred to [facility] for care. They diagnosed her with SCAD, placed a pacemaker for arrhythmias and rate control. Patient has been doing well. She has been working with Physical and Occupational therapy. She is being discharged home, without services per her choice. Patient is to follow up with cardiology at the [facility] on August 25. She also will continue to follow Podiatry for dry gangrene of right toes. Next appointment with product safety technical assistant is August 15. She will continue her current medications. Discharge x-ray noted a small pleural effusion. She is asymptomatic at this time. We will have patient use incentive spirometry every 2 hours and monitor for signs of infection (increased SOB, fever, cough). We will start a a 2 day supply of fluconazole for yeast like infection to left groin area. Patient will follow up with provider in 1 week. We will repeat Chest x-ray at that time. - Discharge Data Discharge Date: 08/15/17 Discharge Disposition: Home, Self-Care 01 Condition: Fair - Discharge Diagnosis/Problem(s) (1) CHF (congestive heart failure) SNOMED Code(s): 05150237 ICD Code: I50.9 - HEART FAILURE, UNSPECIFIED Status: Acute Priority: High Current Visit: Yes Onset Date: 05/22/17 Problem Details: Patient is to follow up with cardiology at [facility] on August 25. If they do not repeat ECHO , recommendation would be made for patient to repeat ECHO. She will continue on current medications. Qualifiers: Heart failure type: unspecified Heart failure chronicity: chronic Qualified Code(s): I50.9 - Heart failure, unspecified (2) Coronary artery disease SNOMED Code(s): 23711630 ICD Code: I25.10 - ATHSCL HEART DISEASE OF [place] CORONARY ARTERY W/O ANG PCTRS Status: Acute Priority: High Current Visit: Yes Onset Date: Problem Details: Currently reports no chest pain. She has been more active , up [facility] physical therapy and ambulating. No arrythmias noted on EKG completed on 08/14/17. Chest xray shows small pleural effusion possibly developing. Patient reports no symptoms of shortness of breath. Continue with activity as tolerated , increase use of incentive spirometry, watch for signs of lower respiratory infections (fever, cough, shortness of breaht) and repeat x ray in 1 week. Qualifiers: Coronary Disease-Associated Artery/Lesion type: [place] artery [place] vs. transplanted heart: [place] heart Associated angina: without angina Qualified Code(s): I25.10 - Atherosclerotic heart disease of [place] coronary artery without angina pectoris (3) Hypothyroidism (acquired) SNOMED Code(s): 639402901 ICD Code: E03.9 - HYPOTHYROIDISM, UNSPECIFIED Status: Acute Priority: Medium Current Visit: Yes Onset Date: 07/14/17 Problem Details: Synthroid initiated. Continue on current dosage. (4) Hypomagnesemia SNOMED Code(s): 872504130 ICD Code: E83.42 - HYPOMAGNESEMIA Status: Acute Priority: Medium Current Visit: Yes Onset Date: 07/14/17 Problem Details: Continue magnesium oxide therapy, levels continue to be slightly below normal. - Patient Summary/Data Consults: Consultations 07/13/17 20:29 Consult to Case Management [CONS] Routine Consult to Hunting And Fishing Guide [CONS] Routine Consult to Spiritual Care [CONS] Routine OT Evaluation and Treatment [CONS] Routine PT Evaluation and Treatment [CONS] Routine 07/14/17 09:15 Consult to Physician [CONS] Routine - Patient Instructions Diet: Usual Diet as Tolerated Activity: As Tolerated, Cough & Deep Breathe, Elevate Extremity Showering/Bathing: May Shower Wound/Incision Care: Keep Operative Site/Wound Site Clean and Dry, Change Dressing Daily Notify Provider of: Fever, Increased Pain, Swelling and Redness, Drainage - Discharge Plan Prescriptions/Med Rec: Amiodarone [Cordarone] 200 mg PO BID@1000,2200 #30 tablet Atropine/Diphenoxylate [Diphenoxylate-Atropine] 1 tab PO Q6H PRN #20 tablet PRN Reason: DIARRHEA Citalopram Hydrobromide [Celexa] 10 mg PO DAILY #30 tablet Levothyroxine [Synthroid] 50 mcg PO DAILY@1000 #30 tablet LORazepam [Ativan] 0.5 mg PO Q6H PRN #15 tablet PRN Reason: Anxiety Metoprolol Tartrate [Lopressor] 25 mg PO BID@1000,2200 #30 tablet Nitrofurantoin Monohyd/M-Cryst [Macrobid 100 mg Capsule] 100 mg PO BID #11 capsule Ondansetron [Zofran ODT] 4 mg PO Q6H PRN #30 tab.dis PRN Reason: Nausea/Vomiting Pantoprazole Sodium 40 mg PO DAILY #30 tablet. Ticagrelor [Brilinta] 90 mg PO BID@1000,2200 #60 tablet traMADol [Ultram] 50 mg PO Q6H PRN #30 tablet PRN Reason: Breakthrough Pain Home Medications: Home Meds Nitrofurantoin Monohyd/M-Cryst [Macrobid 100 mg Capsule] 100 mg PO BID #11 capsule 07/17/17 [Rx] Citalopram Hydrobromide [Celexa] 10 mg PO DAILY #30 tablet 07/19/17 [Rx] Acetaminophen [Tylenol] 650 mg PO Q4H PRN tablet 08/14/17 [Rx] Amiodarone [Cordarone] 200 mg PO BID@1000,2200 #30 tablet 08/14/17 [Rx] Aspirin 81 mg PO DAILY@1000 tab.chew 08/14/17 [Rx] Atropine/Diphenoxylate [Diphenoxylate-Atropine] 1 tab PO Q6H PRN #20 tablet 04/02 [Rx] Bisacodyl [Dulcolax] 5 mg PO DAILY PRN tablet 08/14/17 [Rx] Ferrous Sulfate 325 mg PO BID@1200,1800 tablet 08/14/17 [Rx] LORazepam [Ativan] 0.5 mg PO Q6H PRN #15 tablet 08/14/17 [Rx] Levothyroxine [Synthroid] 50 mcg PO DAILY@1000 #30 tablet 08/14/17 [Rx] Magnesium Oxide 400 mg PO QPM tablet 08/14/17 [Rx] Metoprolol Tartrate [Lopressor] 25 mg PO BID@1000,2200 #30 tablet 08/14/17 [Rx] Multivitamins [Tab-A-Julia] 1 tab PO DAILY@1000 tablet 08/14/17 [Rx] Non-Formulary Medication [NF Drug] 1 each PO DAILY@2200 each 08/14/17 [Rx] Ondansetron [Zofran ODT] 4 mg PO Q6H PRN #30 tab.dis 08/14/17 [Rx] Pantoprazole Sodium 40 mg PO DAILY #30 tablet. 08/14/17 [Rx] Ticagrelor [Brilinta] 90 mg PO BID@1000,2200 #60 tablet 08/14/17 [Rx] traMADol [Ultram] 50 mg PO Q6H PRN #30 tablet 08/14/17 [Rx] Referrals: Lilliam Godoy NP [Primary Care Provider] - Manuel Herbert MD [ED Physician] - - General Info Date of Service: 08/14/17 Admission Dx/Problem (Free Text: Spontaneous Coronary Artery Dissection, CHF Functional Status: Reports: Pain Controlled, Tolerating Diet, Ambulating - Review of Systems General: Reports: No Symptoms HEENT: Reports: No Symptoms Pulmonary: Reports: No Symptoms Cardiovascular: Reports: Edema Gastrointestinal: Reports: Nausea Genitourinary: Reports: No Symptoms Musculoskeletal: Reports: Foot Pain Skin: Reports: No Symptoms Neurological: Reports: No Symptoms Psychiatric: Reports: No Symptoms - Patient Data Vitals - Most Recent: Last Vital Signs Temp 98.3 F 08/14/17 07:41 Pulse 90 08/14/17 09:47 Resp 18 08/14/17 07:41 BP 135/72 08/14/17 09:47 Pulse Ox 98 08/14/17 07:41 Weight - Most Recent: 182 lb 3 oz I&O - Last 24 hours: Intake & Output 08/13/17 08/14/17 08/14/17 22:59 06:59 14:59 Intake Total 90 120 Balance 90 120 Lab Results - Last 24 hrs: Laboratory Results - last 24 hr 08/14/17 08/14/17 08/14/17 Range/Units 07:13 07:13 07:13 WBC 7.9 (4.0-10.2) K/uL RBC 3.01 L (3.77-5.09) M/uL Hgb 9.5 L (11.7-15.5) g/dL Hct 29.6 L (34.0-46.0) % MCV 98.3 H (84.0-98.0) fL MCH 31.6 (28.2-33.3) pg MCHC 32.1 (31.7-36.0) g/dL RDW 15.5 H (11.2-14.1) % Plt Count 340 D (150-350) K/uL Neut % (Auto) 65.1 (45.0-80.0) % Lymph % (Auto) 23.8 (10.0-50.0) % [place] % (Auto) 7.7 (2.0-14.0) % Eos % (Auto) 2.9 (0.0-5.0) % Baso % (Auto) 0.5 (0.0-2.0) % Neut # (Auto) 5.16 (1.40-7.00) K/uL Lymph # (Auto) 1.89 (0.50-3.50) K/uL [place] # (Auto) 0.61 (0.00-1.00) K/uL Eos # (Auto) 0.23 (0.00-0.50) K/uL Baso # (Auto) 0.04 (0.00-0.20) K/uL Sodium 142 (136-145) mmol/L Potassium 3.8 (3.5-5.1) mmol/L Chloride 108 H (98-107) mmol/L Carbon Dioxide 26.1 (21.0-32.0) mmol/L BUN 9 (7-18) mg/dL Creatinine 0.95 (0.51-1.17) mg/dL Est Cr Clr Drug Dosing 87.98 mL/min Estimated GFR (MDRD) > 60 mL/min Glucose 86 (74-106) mg/dL Calcium 8.4 L (8.5-10.1) mg/dL Magnesium 1.8 (1.8-2.4) mg/dL Iron 39 L (50-175) ug/dL TIBC 139 L (250-450) ug/dL % Saturation 28.05318 Total Bilirubin 0.3 (0.2-1.0) mg/dL AST 17 (15-37) U/L ALT 17 (12-78) U/L Alkaline Phosphatase 169 H (46-116) IU/L NT-Pro-B Natriuret Pep 4621 H (0-125) pg/mL Total Protein 5.6 L (6.4-8.2) g/dL Albumin 1.9 L (3.4-5.0) g/dL TSH, Ultra Sensitive (0.358-3.740) mIU/mL 07/02/18 Range/Units 07:13 WBC (4.0-10.2) K/uL RBC (3.77-5.09) M/uL Hgb (11.7-15.5) g/dL Hct (34.0-46.0) % MCV (84.0-98.0) fL MCH (28.2-33.3) pg MCHC (31.7-36.0) g/dL RDW (11.2-14.1) % Plt Count (150-350) K/uL Neut % (Auto) (45.0-80.0) % Lymph % (Auto) (10.0-50.0) % [place] % (Auto) (2.0-14.0) % Eos % (Auto) (0.0-5.0) % Baso % (Auto) (0.0-2.0) % Neut # (Auto) (1.40-7.00) K/uL Lymph # (Auto) (0.50-3.50) K/uL [place] # (Auto) (0.00-1.00) K/uL Eos # (Auto) (0.00-0.50) K/uL Baso # (Auto) (0.00-0.20) K/uL Sodium (136-145) mmol/L Potassium (3.5-5.1) mmol/L Chloride (98-107) mmol/L Carbon Dioxide (21.0-32.0) mmol/L BUN (7-18) mg/dL Creatinine (0.51-1.17) mg/dL Est Cr Clr Drug Dosing mL/min Estimated GFR (MDRD) mL/min Glucose (74-106) mg/dL Calcium (8.5-10.1) mg/dL Magnesium (1.8-2.4) mg/dL Iron (50-175) ug/dL TIBC (250-450) ug/dL % Saturation Total Bilirubin (0.2-1.0) mg/dL AST (15-37) U/L ALT (12-78) U/L Alkaline Phosphatase (46-116) IU/L NT-Pro-B Natriuret Pep (0-125) pg/mL Total Protein (6.4-8.2) g/dL Albumin (3.4-5.0) g/dL TSH, Ultra Sensitive 1.945 (0.358-3.740) mIU/mL Med Orders - Current: Current Medications Acetaminophen (Tylenol) 650 mg PO Q4H PRN PRN Reason: Pain (Mild 1-3)/fever Last Admin: 08/05/17 21:16 Dose: 650 mg Amiodarone HCl (Cordarone) 200 mg PO BID@1000,2200 PENDING SALE TO [facility] Last Admin: 08/14/17 09:47 Dose: 200 mg Aspirin (Aspirin) 81 mg PO DAILY@1000 PENDING SALE TO [facility] Last Admin: 08/14/17 09:47 Dose: 81 mg Bisacodyl (Dulcolax) 5 mg PO DAILY PRN PRN Reason: Constipation Calcium Carbonate/Glycine (Tums) 500 mg PO Q2HR PRN PRN Reason: Nausea Diphenoxylate HCl/Atropine (Lomotil 0.025-2.5 Mg) 1 tab PO Q6H PRN PRN Reason: DIARRHEA Last Admin: 08/14/17 06:05 Dose: 1 tab Ferrous Sulfate (Ferrous Sulfate) 325 mg PO BID@1200,1800 PENDING SALE TO [facility] Last Admin: 08/14/17 11:34 Dose: 325 mg Gabapentin (Neurontin) 600 mg PO TID@1000,1800,2200 PENDING SALE TO [facility] Last Admin: 08/14/17 09:48 Dose: 600 mg Levothyroxine Sodium (Synthroid) 50 mcg PO DAILY@1000 PENDING SALE TO [facility] Last Admin: 08/14/17 09:48 Dose: 50 mcg Lorazepam (Ativan) 0.5 mg PO Q6H PRN PRN Reason: Anxiety Last Admin: 08/14/17 06:05 Dose: 0.5 mg Magnesium Oxide (Magnesium Oxide) 400 mg PO QPM PENDING SALE TO [facility] Last Admin: 08/13/17 17:56 Dose: 400 mg Metoprolol Tartrate (Lopressor) 25 mg PO BID@1000,2200 PENDING SALE TO [facility] Last Admin: 08/14/17 09:47 Dose: 25 mg Multivitamins/Minerals/Vitamin C (Tab-A-Julia) 1 tab PO DAILY@1000 PENDING SALE TO [facility] Last Admin: 08/14/17 09:46 Dose: 1 tab Citalopram 10mg Tabs (Ptom) 1 each PO DAILY@2200 PENDING SALE TO [facility] Last Admin: 08/13/17 22:42 Dose: 1 each Ondansetron HCl (Zofran Odt) 4 mg PO Q6H PRN PRN Reason: Nausea/Vomiting Last Admin: 08/13/17 22:40 Dose: 4 mg Pantoprazole Sodium (Protonix) 40 mg PO DAILY@2200 PENDING SALE TO [facility] Last Admin: 08/13/17 22:42 Dose: 40 mg Sodium Chloride (Saline Flush) 10 ml FLUSH ASDIRECTED PRN PRN Reason: Keep Vein Open Last Admin: 07/25/17 16:54 Dose: 10 ml Ticagrelor (Brilinta) 90 mg PO BID@1000,2200 PENDING SALE TO [facility] Last Admin: 08/14/17 09:46 Dose: 90 mg Tramadol HCl (Ultram) 50 mg PO Q6H PRN PRN Reason: Breakthrough Pain Last Admin: 08/13/17 22:41 Dose: 50 mg Discontinued Medications Amiodarone HCl (Cordarone) 400 mg PO DAILY PENDING SALE TO [facility] Last Admin: 08/09/17 10:53 Dose: 400 mg Amoxicillin/Clavulanate Potassium (Augmentin 875 Mg/125 Mg) 1 tab PO Q12HR PENDING SALE TO [facility] Last Admin: 07/26/17 09:35 Dose: Not Given Aspirin (Aspirin) 81 mg PO DAILY PENDING SALE TO [facility] Last Admin: 08/09/17 10:53 Dose: 81 mg Citalopram Hydrobromide (Celexa) 10 mg PO DAILY PENDING SALE TO [facility] Last Admin: 07/20/17 18:38 Dose: Not Given Diazepam (Valium.) 5 mg PO TID PRN PRN Reason: Anxiety Stop: 08/02/17 20:00 Ferrous Sulfate (Ferrous Sulfate) 325 mg PO BIDMEALS PENDING SALE TO [facility] Last Admin: 08/03/17 08:34 Dose: 325 mg Ferrous Sulfate (Ferrous Sulfate) Confirm Administered Dose 325 mg .ROUTE .STK- MED ONE Stop: 08/08/17 17:50 Last Admin: 08/08/17 18:01 Dose: Not Given Gabapentin (Neurontin) 300 mg PO BID PENDING SALE TO [facility] Last Admin: 07/18/17 07:24 Dose: 300 mg Gabapentin (Neurontin) 300 mg PO TID PENDING SALE TO [facility] Last Admin: 08/03/17 11:23 Dose: 300 mg Gabapentin (Neurontin) 600 mg PO TID PENDING SALE TO [facility] Last Admin: 08/09/17 15:44 Dose: Not Given Piperacillin Sod/Tazobactam (Sod 3.375 gm/ Sodium Chloride) 100 mls @ 200 mls/ hr IV Q6H PENDING SALE TO [facility] Last Admin: 07/25/17 16:54 Dose: 200 mls/hr Levothyroxine Sodium (Synthroid) 50 mcg PO ACBREAKFAST PENDING SALE TO [facility] Last Admin: 08/09/17 10:53 Dose: 50 mcg Lidocaine (Xylocaine-Mpf 2%) 5 ml INJECT ONETIME ONE Stop: 07/24/17 13:11 Last Admin: 07/24/17 14:00 Dose: 5 ml Lidocaine/Prilocaine (Emla Crm) 1 gm TOP ONETIME ONE Stop: 07/24/17 13:10 Last Admin: 07/24/17 13:28 Dose: 1 applic Metoprolol Tartrate (Lopressor) 25 mg PO BID@08,20 PENDING SALE TO [facility] Last Admin: 08/09/17 10:53 Dose: 25 mg Multivitamins/Minerals/Vitamin C (Tab-A-Julia) 1 tab PO DAILY PENDING SALE TO [facility] Last Admin: 08/09/17 10:54 Dose: 1 tab Nitrofurantoin Macrocrystals (Macrobid) 100 mg PO BID PENDING SALE TO [facility] Stop: 07/22/17 18:01 Last Admin: 07/22/17 17:54 Dose: 100 mg Diazepam 10 Mg Tab * (*Non-Form) 0 each PO TID PRN PRN Reason: Anxiety Stop: 08/02/17 20:00 Last Admin: 08/02/17 10:21 Dose: 1 each Citalopram 10mg Tabs (Ptom) 1 each PO DAILY PENDING SALE TO [facility] Last Admin: 08/03/17 08:35 Dose: 1 each Fluconazole 150mg (Tablet) 150 each PO DAILY@1800 PENDING SALE TO [facility] Stop: 07/28/17 18:01 Last Admin: 07/28/17 18:03 Dose: 150 each Citalopram 10mg Tabs (Ptom) 1 each PO BEDTIME PENDING SALE TO [facility] Last Admin: 08/08/17 21:04 Dose: 1 each Nystatin (Nystatin Crm) 1 gm TOP TID PENDING SALE TO [facility] Last Admin: 07/30/17 11:49 Dose: Not Given Pantoprazole Sodium (Protonix) 40 mg PO DAILY PENDING SALE TO [facility] Last Admin: 08/03/17 08:36 Dose: 40 mg Pantoprazole Sodium (Protonix) 40 mg PO BEDTIME PENDING SALE TO [facility] Last Admin: 08/08/17 21:05 Dose: 40 mg Prednisone (Prednisone) 5 mg PO DAILY PENDING SALE TO [facility] Last Admin: 07/16/17 07:49 Dose: 5 mg Ticagrelor (Brilinta) 90 mg PO BID@08,20 PENDING SALE TO [facility] Last Admin: 08/09/17 10:53 Dose: 90 mg - Exam General: Reports: Alert, Oriented, Cooperative, No Acute Distress HEENT: Reports: Pupils Equal Neck: Reports: Supple, Trachea Midline Lungs: Reports: Clear to Auscultation, Normal Respiratory Effort Cardiovascular: Reports: Regular Rate, Regular Rhythm, Bradycardia GI/Abdominal Exam: Normal Bowel Sounds, Soft, Non-Tender, No Distention (Female) Exam: Deferred Rectal (Female) Exam: Deferred Back Exam: Reports: Normal Inspection, Full Range of Motion Extremities: Normal Range of Motion, Other (Patient continues to have nerve pain to bilateral feet. She reports this has improved with the Gabapentin. She has pedal edema at end of day when extremities have been dependent.) Skin: Reports: Warm, Dry, Intact Wound/Incisions: Reports: Healing Well, Drainage, Other (No erythema or warmth noted. Whitish-yellow drainage present to left inner groin wound. Fluconazole tabs ordered.) Neurological: Reports: No New Focal Deficit Psy/Mental Status: Reports: Alert, Normal Affect, Normal Mood *Q Meaningful Use (DIS) - VTE *Q VTE Mechanical Contraindications *Q: Bilateral PAD or PVD VTE Pharmacological Contraindications *Q: Risk of Bleeding VTE Anticoagulation Contraindications: Treatment Not Tolerated
[2017-08-14] MEDS: Magnesium Oxide 400 MG Tab PO SCH (17:31)
[2017-08-14] MEDS: FLUCONAZOLE 100 MG PO SCH (17:31)
[2017-08-14] MEDS: CITALOPRAM 10 MG PO SCH (21:32)
[2017-08-14] MEDS: Pantoprazole 40 MG Tab.CR PO SCH (21:33)
[2017-08-14] MEDS: traMADol 50 MG Tab PO PRN (21:34)
[2017-08-15 07:52] VITALS: BP 109/54
[2017-08-15] MEDS: Amiodarone 200 MG Tab PO SCH (09:28)
[2017-08-15] MEDS: Ticagrelor 90 MG Tab PO SCH (09:28)
[2017-08-15] MEDS: Metoprolol Tartrate 25 MG Tab PO SCH (09:28)
[2017-08-15] MEDS: FLUCONAZOLE 100 MG PO SCH (09:28)
[2017-08-15] MEDS: Gabapentin 300 MG Cap PO SCH (09:29)
[2017-08-15] MEDS: traMADol 50 MG Tab PO PRN (09:30)
[2017-08-15] MEDS: Levothyroxine 50 MCG Tab PO SCH (09:30)
[2017-08-15] MEDS: LORazepam 0.5 MG Tab ** OWN MED PO PRN (09:31)
[2017-08-15] MEDS: Multivitamin Tab PO SCH (09:33)
[2017-08-15] MEDS: Aspirin 81 MG Tab.Chew PO SCH (09:33)
--- NOTE | 2017-08-15 16:36 | PCM.SN ---
- Free Text/Narrative Note: Amend discharge to include that Gabapentin was continued after discharge , as was Diflucan. Macrobid discontinued on APR as patient has not been on that since concluding that treatment regimen in July. Patient will followup with clinic provider next Monday for recheck.
== END 2017-08-15 11:10 | disposition home or self-care (01) | DRG 939 ==
LOC: LL.MS 16:21
PROVIDERS: ADMIT Family Medicine; ATTEND Family Medicine
PROC: 059 Upper Veins, Drainage (ICD-10-PCS; principal; 2017-07-25)
DX: R53.1 Weakness (principal); I49.01 Ventricular fibrillation; L02.414 Cutaneous abscess of left upper limb; N39.0 Urinary tract infection, site not specified; B37.49 Other urogenital candidiasis; I25.10 Atherosclerotic heart disease of native coronary artery without angina pectoris; B96.1 Klebsiella pneumoniae [K. pneumoniae] as the cause of diseases classified elsewhere; E78.5 Hyperlipidemia, unspecified; G62.9 Polyneuropathy, unspecified; I73.9 Peripheral vascular disease, unspecified; I25.2 Old myocardial infarction; F41.8 Other specified anxiety disorders; I50.9 Heart failure, unspecified; E03.9 Hypothyroidism, unspecified; I25.5 Ischemic cardiomyopathy; E83.42 Hypomagnesemia; I95.89 Other hypotension; D50.9 Iron deficiency anemia, unspecified; Z71.6 Tobacco abuse counseling; Z79.899 Other long term (current) drug therapy; Z79.52 Long term (current) use of systemic steroids; Z95.810 Presence of automatic (implantable) cardiac defibrillator; Z87.891 Personal history of nicotine dependence
CPT/HCPCS: 36415; 71045; 71046; 80053; 80061; 81001; 82550; 82553; 82607; 82746; 83036; 83540; 83550; 83735; 83880; 84443; 84484; 84550; 85025; 85610; 85652; 85730; 86140; 87040; 87070; 87086; 87088; 87186; 87641; 93005; 97110-GO; 97110-GP; 97112-GO; 97112-GP; 97116-GP; 97140-GP; 97162-GP; 97165-GO; 97530-GO; 97530-GP; 97535-GO; A9270-GY; J2543; J7050

== ENCOUNTER 2017-10-01 16:30 | Emergency (ER) | payer OTHER ==
--- NOTE | 2017-10-01 16:51 | EDM.PDOC ---
ED HPI GENERAL MEDICAL PROBLEM - General Chief Complaint: General Stated Complaint: dizziness, low BP Time Seen by Provider: 10/01/17 16:45 Source of Information: Reports: Patient, Family (), Old Records ([facility] chart/EMR) History Limitations: Reports: No Limitations - History of Present Illness INITIAL COMMENTS - FREE TEXT/NARRATIVE: The patient was brought into the emergency room via private automobile by her for evaluation of progressive dizziness and hypotension since waking up yesterday morning. She did have a home blood pressure of only 77/52 at 16.15 hours this afternoon. No medications or treatment taken to this point. Note significant cardiac history as below. The patient denies any chest pain/pressure , heart flutter, increased orthopnea, diaphoresis, recent decreased exercise tolerance, or any other anginal-type symptoms, however overall exercise tolerance is extremely low secondary to her chronic cardiac disease. No recent history of abdominal pain, heartburn, diarrhea, melena, gross hematochezia, or any food intolerance, including fatty foods, etc. although some occasional nonspecific nausea since yesterday including 1 episode of emesis yesterday and 3 loose bowel movements over the last 24 hours. She denies any current colic, gross hematuria, dysuria, or other UTI symptoms. The patient also denies any recent fever, cough, wheezing, dyspnea, etc.. No history of recent headaches, visual changes, diplopia, change in mental status, or other change in neurological status exception of possible mild increased dystaxia during the last couple of days with no history of fall or injury. 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 Note recent right foot surgery as below with dressing not removed since that time. Patient is currently on doxycycline secondary to left foot infection. Onset: Gradual Onset Date: 09/30/17 Duration: Constant, Getting Worse Location: Reports: Upper Extremity, Right, Lower Extremity, Right (Postoperative ). Denies: Head, Face, Neck, Chest, Abdomen, Back, Pelvis, Lower Extremity, Left, Radiates to Quality: Reports: Ache, Same as Previous Episode, Stabbing Severity: Moderate Improves with: Reports: Rest Worsens with: Reports: Movement Context: Reports: Other (Postoperative as above). Denies: Sick Contact Associated Symptoms: Reports: Nausea/Vomiting, Weakness (Stable moderate chronic ). 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: Other (see below) (None) Right Feet Pain Score (Numeric/FACES): 8 (Postoperative) - Related Data Allergies Allergy/AdvReac Type Severity Reaction Status Date / Time heparin Allergy Bleeding Verified 09/08/17 14:47 Home Meds: Home Meds Citalopram Hydrobromide [Celexa] 10 mg PO DAILY #30 tablet 07/19/17 [Rx] Acetaminophen [Tylenol] 650 mg PO Q4H PRN tablet 08/14/17 [Rx] Amiodarone [Cordarone] 200 mg PO BID@1000,2200 #30 tablet 08/14/17 [Rx] Aspirin 81 mg PO DAILY@1000 tab.chew 08/14/17 [Rx] Atropine/Diphenoxylate [Diphenoxylate-Atropine] 1 tab PO Q6H PRN #20 tablet 04/02 [Rx] Bisacodyl [Dulcolax] 5 mg PO DAILY PRN tablet 08/14/17 [Rx] Ferrous Sulfate 325 mg PO BID@1200,1800 tablet 08/14/17 [Rx] LORazepam [Ativan] 0.5 mg PO Q6H PRN #15 tablet 08/14/17 [Rx] Levothyroxine [Synthroid] 50 mcg PO DAILY@1000 #30 tablet 08/14/17 [Rx] Magnesium Oxide 400 mg PO QPM tablet 08/14/17 [Rx] Metoprolol Tartrate [Lopressor] 25 mg PO BID@1000,2200 #30 tablet 08/14/17 [Rx] Multivitamins [Tab-A-Julia] 1 tab PO DAILY@1000 tablet 08/14/17 [Rx] Non-Formulary Medication [NF Drug] 1 each PO DAILY@2200 each 08/14/17 [Rx] Ondansetron [Zofran ODT] 4 mg PO Q6H PRN #30 tab.dis 08/14/17 [Rx] Pantoprazole Sodium 40 mg PO DAILY #30 tablet.dr 08/14/17 [Rx] Ticagrelor [Brilinta] 90 mg PO BID@1000,2200 #60 tablet 08/14/17 [Rx] traMADol [Ultram] 50 mg PO Q6H PRN #30 tablet 08/14/17 [Rx] Doxycycline [Vibramycin] 100 mg PO BID 10/01/17 [History] Sodium Chloride 0.9% [Saline Flush] 10 ml FLUSH ASDIRECTED PRN syringe [Rx] Past Medical History HEENT History: Reports: Allergic Rhinitis, Impaired Vision. Denies: Glaucoma, Hard of Hearing, Macular Degeneration, Retinal Detachment Other HEENT History: Patient wears glasses Cardiovascular History: Reports: Aneurysm, Arrhythmia, Automatic Implantable Cardioverter Defibrillators, Blood Clots/VTE/DVT, CAD, Cardiomyopathy, Heart Failure, High Cholesterol, GA, Pacemaker, PVD, SOB on Exertion, Stents, Syncope , Other (See Below) Other Cardiovascular History: Syncopal episode secondary to dehydration on . 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 Refractory recurrent ventricular fibrillation with secondary cardiac arrest on 05/22/17, 06/03/17, and 06/15/17. Bilateral DVTs of the lower extremities in May 2017. Recurrent tachycardia in 2012 of unknown type and etiology and related to anxiety at that time. Dry gangrene of the toes of her right foot secondary to post GA vascular injury as above/below. Chronic d- dimer elevation. Respiratory History: Reports: Intubation, Previous, Other (See Below). Denies: Asthma, Intubation, Difficult, PE, Pneumothorax Other Respiratory History: Initial endotracheal intubation on 05/1917 with reintubation on 06/03/17 and 06/29/17 Gastrointestinal History: Reports: GI Bleed, Hepatitis, Other (See Below). Denies: Celiac Disease, Cholelithiasis, Chronic Constipation, Colon Polyp, Gastritis, GERD, Inflammatory Bowel Disease, Irritable Bowel Syndrome, Jaundice , Pancreatitis, PUD Other Gastrointestinal History: Severe lower intestinal GI bleed in June 2017 after acute GA in May 2017 with subsequent operative procedure required as below. Hepatic injury/LFTs elevation secondary to acute GA in May 2017. Post CVA dysphagia after GA in May 2017. jaundice. Genitourinary History: Reports: Acute Renal Failure, Dialysis, Other (See Below) . Denies: Chronic Renal Insuffiency, Renal Calculus, STD, Urinary Incontinence , UTI, Recurrent Other Genitourinary History: Acute renal failure in May and June 2017 secondary to complications from acute GA in May 2017 with dialysis required TOOL MAKER BENCH History: Reports: Dysfunctional Uterine Bleeding, . Denies: Endometriosis, Fibroids : 3 Para: 4 LMP (Approximate): Other (See Below) Other TOOL MAKER BENCH History: Twin with as below. Dysmenorrhea/ menorrhagia with irregular menses since May 2017 with LMP of 09/09/17. Musculoskeletal History: Reports: Arthritis, Osteoarthritis. Denies: Back Pain , Chronic, Gout, Neck Pain, Chronic, RA, SLE Neurological History: Reports: CVA, Neuropathy, Peripheral, Other (See Below). Denies: Alzheimers Disease, Cerebral Aneurysms, Concussion, Headaches, Chronic, Head Trauma, Migraines, MS, Parkinson's, Seizure, Speech Problems, TIA Other Neuro History: Diffuse multiple bilateral small cerebral and cerebellar hemorrhages on 06/03/17 and/or septic infarctions subsequent to acute GA on 2017 with secondary sepsis and DIC Psychiatric History: Reports: Anxiety, Bipolar, Depression, Other (See Below). Denies: Abuse, Victim of, ADD, ADHD, Addiction, Psych Hospitalization(s), PTSD, Suicide Attempt, Suicidal Ideation Other Psychiatric History: Anxiety depression disorder secondary to her multiple health problems in May 2017 as above. Previous Bipolar disorder with some ashley in 2012. Endocrine/Metabolic History: Reports: Obesity/BMI 30+, Other (See Below). Denies: Diabetes, Gestational, Diabetes, Type I, Diabetes, Type II, Diabetes Mellitus, Type 3c, Hypothyroidism, IDDM Other Endocrine/Metabolic History: Hypoglycemia during . Benign thyroid cysts. Hematologic History: Reports: Anemia, Blood Transfusion(s), Heparin Induced Thrombocytopenia, Iron Deficiency, Other (See Below) Other Hematologic History: Massive transfusion protocol on 05/23/17 after removal of ECMO with additional 2 units of packed red blood cells on 06/14 and . Thrombocytopenia and DIC secondary to sepsis in May 2017. Subsequent deficiency anemia requiring iron infusions. Immunologic History: Reports: None. Denies: AIDS, SLE Oncologic (Cancer) History: Reports: Cervix, Other (See Below). Denies: Basal Cell Carcinoma, Breast, Hodgkin's Lymphoma, Leukemia, Lymphoma, Malignant Melanoma, Non-Hodgkin's Lymphoma, Ovarian, Squamous Cell Carcinoma, Uterine Other Oncologic History: Previous abnormal Pap smear Dermatologic History: Reports: None, Other (See Below). Denies: Eczema, Psoriasis, Venous Stasis Dermatitis Other Dermatologic History: Acne vulgaris - Infectious Disease History Infectious Disease History: Reports: Chicken Pox, Shingles, Other (See Below). Denies: C-Difficile, Meningitis, Mononucleosis, MRSA, Mumps, Pertussis ( Whooping Cough), Rheumatic Fever, Rubella, Scarlet Fever, TB, VRE Other Infectious Disease History: Stenotrophomonas maltophilia sepsis secondary to postoperative GA course in May 2017 with secondary DIC as above. Right cervical herpes zoster in November 2012. Recurrent herpes types 1. - Past Surgical History Head Surgeries/Procedures: Reports: None HEENT Surgical History: Reports: Oral Surgery, Other (See Below). Denies: Adenoidectomy, Cataract Surgery, Eye Surgery, Laser Surgery, LASIK, Myringotomy w Tube(s), Naso-Sinus Surgery, Tonsillectomy Other HEENT Surgeries/Procedures: Multiple teeth extractions Cardiovascular Surgical History: Reports: AICD, Carotid Stents, Coronary Artery Stent, Pacer, Vascular Surgery. Denies: AAA Repair, Aneurysm, Coronary Artery Bypass, Varicose Other Cardiovascular Surgeries/Procedures: Drug-eluting stents 3 of the right coronary artery overlapping in nature and additional drug-eluting stent 1 over the left main coronary artery and proximal LAD on 05/22/17 secondary to aneurysm/ dissection. Repair of right femoral artery dissection with additional required fasciotomy and 06/02/17 secondary to ECMO catheter. Right subclavian artery banding on 06/03/17 secondary to hemorrhage/hematoma from ECMO catheter with evacuation of right axillary hematoma on 06/08/17. Trans-axillary IABP placed on 06/08/17 with replacement on 06/11/17. Middle celiac artery embolization on . Right leg femoral artery stent placement and fasciotomy of the right leg on 05/23/17 and subsequent closure on 05/26/17. PICC line on 06/21/17. AICD/pacemaker placement on 07/04/17 Respiratory Surgical History: Reports: Thoracentesis, Other (See Below) Other Respiratory Surgeries/Procedures: Thoracentesis of large left pleural effusion on 09/11/17. GI Surgical History: Reports: Colonoscopy, Other (See Below). Denies: Appendectomy, Cholecystectomy, EGD, Hernia, Abdominal, Hernia, Inguinal, Hernia Repair/Other, Polypectomy Other GI Surgeries/Procedures: Flexible sigmoidoscopy on 06/13/17 with subsequent colonoscopy on 06/15/17. Female Surgical History: Reports: Section, Tubal Ligation, Other ( See Below). Denies: Breast Biopsy, Cervical Cryotherapy, D&C, LEEP Other Female Surgeries/Procedures: Alfonso catheter placement by urology on . Bilateral tubal ligation in 2007. secondary to twin delivery on 02/25/07. Endocrine Surgical History: Reports: None Neurological Surgical History: Reports: Lumbar Spine, Other (See Below). Denies : C-Spine, Discectomy, Laminectomy, Scoliosis, Spinal Fusion, Thoracic Spine Other Neurological Surgeries/Procedures: Stellate ganglion block on 06/23/17. Musculoskeletal Surgical History: Reports: Other (See Below). Denies: Arthroscopic Procedure, Carpal Tunnel, Ganglion Cyst, Joint Replacement, ORIF, Shoulder Surgery Other Musculoskeletal Surgeries/Procedures:: Partial amputations of the distal phalanges of digits number 15 of the right foot secondary to dry gangrene on . Oncologic Surgical History: Reports: None. Denies: Biopsy of Breast Dermatological Surgical History: Reports: None - Past Imaging History Past Imaging History: Reports: Angiography (Heart catheterization on 05/22/17 with procedures as above.), Cardiac Echo (Last echocardiogram on 09/09/17 with improved ejection fraction of 3035 percent with previous echocardiogram on 06/04 with ejection fraction of only 2530 percent and previous echocardiogram at time of her GA on 05/22/17 showing an ejection fraction of only 510 percent), CAT Scan (CT of the head on 06/13/17, 06/03/17, and 11/30/12. CTA of the chest on , 06/14/17, and 10/22/09. CT of the neck on 11/26/12. CT of the maxillofacial region on 10/06/10.), Ultrasound (Soft tissue ultrasound of the neck and thyroid gland on 11/23/12. Multiple previous abdominal ultrasounds), Venous Doppler ( Venous Doppler studies of the lower extremities 2 in May 2017 with previous bilateral lower extremity Doppler studies on 10/22/09.) Social & Family History - Family History HEENT: Reports: None. Denies: Glaucoma, Macular Degeneration, Retinal Detachment Cardiac: Reports: Blood Clots/VTE/DVT, High Cholesterol, Hypertension, Other ( See Below). Denies: Afib, Aneurysm, Arrhythmia, CAD, Heart Failure, GA, PVD/COD , Syncope Other Cardiac Family History: Mother with history of DVT of her leg on one occasion with sister having recurrent bilateral DVTs. Father with hyperlipidemia and hypertension. Respiratory: Reports: None. Denies: Asthma, COPD, PE, Pneumothorax, Sleep Apnea GI: Reports: None. Denies: Celiac Disease, Cholelithiasis, Colon Polyps, GERD, GI bleed, Inflammatory Bowel Disease, Irritable Bowel Syndrome, PUD : Reports: None. Denies: Renal Calculus, Renal Disease/Insufficiency OBGYN: Reports: None. Denies: Dysfunctional uterine bleeding, Endometriosis, Fibroids, Recurrent Spontaneous Musculoskeletal: Reports: None. Denies: Arthritis, Gout, Osteoarthritis, RA, SLE Neurological: Reports: Seizure, Other (See Below). Denies: Alzheimers Disease, CVA, Dementia, Migraines, MS, Neuropathy, Peripheral, Parkinson's, TIA Other Neurological Family History: Sister with history of grand mal seizure disorder. Psychiatric: Reports: Anxiety, Depression, Other (See Below). Denies: Abuse, Victim of, ADD, ADHD, Psych Hospitalization(s), PTSD, Suicide Attempt Other Psychiatric Family History: Sister of anxiety depression disorder. Endocrine/Metabolic: Denies: Diabetes, Gestational, Diabetes, Type I, Diabetes, type II, Diabetes Mellitus, Type 3c, Hypothyroidism, IDDM Hematologic: Reports: None. Denies: Anemia, SLE Immunologic: Reports: None. Denies: AIDS, HIV, SLE Dermatologic: Reports: None. Denies: Eczema, Psoriasis Oncologic: Reports: None. Denies: Cervix, Colon, Hodgkin's Lymphoma, Leukemia, Lymphoma, Non-Hodgkin's Lymphoma, Ovarian, Skin, Uterine - Tobacco Use Smoking Status *Q: Current Every Day Smoker Tobacco Use Within Last Twelve Months: Cigarettes Years of Tobacco use: 21 Packs/Tins Daily: 0.1 Packs/Tins Daily Comment: Started smoking at age 21 with maximum use of 2 packs per day. Used Tobacco, but Quit: No Smoking Cessation Information Provided To Patient: No Second Hand Smoke Exposure: No Second Hand Smoke Education Provided: No - Caffeine Use Caffeine Use: Reports: None. Denies: Coffee, Energy Drinks, Soda, Tea - Alcohol Use Alcohol Use History: No Days Per Week of Alcohol Use: 0 Number of Drinks Per Day: 0 Number of Drinks Per Day Comment: No previous DWIs, problems with alcohol abuse , etc. 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 ED EXAM, GENERAL - Physical Exam Exam: See Below Exam Limited By: No Limitations General Appearance: Alert, WD/WN, No Apparent Distress, Anxious (Moderate) Eye Exam: Bilateral Eye: EOMI, Normal Inspection (No nystagmus), PERRL Ears: Normal External Exam, Normal Canal, Hearing Grossly Normal, Normal TMs Nose: Normal Inspection, Normal Mucosa, No Blood, Clear Rhinorrhea Throat/Mouth: Normal Lips, Normal Gums. No: Normal Teeth (Multiple missing teeth with multiple broken teeth and caries of the left lower premolar region with no gingiva swelling or evidence of abscess, drainage, etc.) Head: Atraumatic, Normocephalic. No: Facial Swelling, Facial Tenderness, Sinus Tenderness Neck: Normal Inspection, Supple, Non-Tender, Full Range of Motion. No: Carotid Bruit, Lymphadenopathy (L), Lymphadenopathy (R) Respiratory/Chest: No Respiratory Distress, Lungs Clear, Normal Breath Sounds, No Accessory Muscle Use, Chest Non-Tender. No: Pleural Rub, Retractions Cardiovascular: Normal Peripheral Pulses, Regular Rate, Rhythm, No Edema, No Gallop, No JVD, No Murmur, No Rub. No: Gallop/S3, Gallop/S4, Friction Rub Peripheral Pulses: 1+: Dorsalis Pedis (L), Dorsalis Pedis (R), 2+: Radial (L), Radial (R) GI/Abdominal: Normal Bowel Sounds, Soft, Non-Tender, No Organomegaly, No Distention, No Abnormal Bruit, No Mass, Pelvis Stable. No: Guarding (Female) Exam: Deferred Rectal (Female) Exam: Deferred Back Exam: Normal Inspection, Full Range of Motion. No: CVA Tenderness (L), CVA Tenderness (R), Muscle Spasm Extremities: No Pedal Edema, Other (Postoperative changes including sutures still remaining over distal phalangeal amputation sites of digits #1 through 5 of the right foot with minimal drainage from digit #2, however no significant erythema or evidence of infection. Additional trace erythema with minimal localized tenderness over the plantar aspect of the distal left metatarsal with no lymphangitis, drainage, etc.). No: Non-Tender (Moderate tenderness over surgical site of right foot), Kevin's Sign, Increased Warmth Neurological: Alert, Oriented, CN II-XII Intact, Normal Cognition, Normal Reflexes, No Motor/Sensory Deficits. No: Normal Gait (Borderline increased dystaxia history as above) Psychiatric: Anxious (Moderate), Depressed Mood (Mild to moderate), Tearful ( Occasionally) Skin Exam: Ecchymosis (Multiple areas of old ecchymosis), Tattoo(s) (Multiple), Wound/Incision. No: Diaphoretic, Increased Warmth, Lymphangitis, Petechiae Lymphatic: No Adenopathy EKG INTERPRETATION EKG Date: 10/01/17 Time: 17:05 Rhythm: NSR Rate (Beats/Min): 76 [place]: Normal (Left cardiac axis) P-Wave: Enlarged (Mild diffuse biphasic P waves with mild poor R-wave progression in the anterior leads) QRS: Wide (QRS interval 0.10 seconds representing repolarization changes) ST-T: Normal QT: Normal NM/PQ Interval: 0.19 seconds Comparison: NA - No Prior EKG (No recent EKG available for comparison) EKG Interpretation Comments: 1. No acute ischemic changes 2. Probable left atrial enlargement Course - Vital Signs Last Recorded V/S: Last Vital Signs Temp 36.1 C 10/01/17 18:06 Pulse 79 10/01/17 18:06 Resp 21 H 10/01/17 18:06 BP 90/66 10/01/17 18:06 Pulse Ox 99 10/01/17 18:06 Vital Signs - 24 hr 10/01/17 10/01/17 10/01/17 16:31 16:52 17:33 Temperature [ 36.1 C 36.2 C Temporal] Pulse, 85 76 74 Peripheral [ Left Pulse Oximetry] Respiratory 20 20 20 Rate Blood Pressure 99/62 96/64 78/46 L [Left Upper Arm ] O2 Sat by Pulse 100 100 100 Oximetry 10/01/17 10/01/17 10/01/17 17:52 18:06 18:35 Temperature [ 36.1 C Temporal] Pulse, 76 79 73 Peripheral [ Left Pulse Oximetry] Respiratory 20 21 H 20 Rate Blood Pressure 82/64 L 90/66 75/44 L [Left Upper Arm ] O2 Sat by Pulse 100 99 100 Oximetry - Orders/Labs/Meds Orders: Active Orders 24 hr Category Date Time Status Cardiac Monitoring [RC] . DIRECTED Care 10/01/17 16:52 Active EKG Documentation Completion [RC] ASDIRECTED Care 10/01/17 16:52 Active Oxygen Therapy, ED [RC] PRN Care 10/01/17 16:52 Active Peripheral IV Care [RC] . DIRECTED Care 10/01/17 16:52 Active Pulse Oximetry [RC] CONTINUOUS Care 10/01/17 16:52 Active Up With Assistance [RC] PFP Care 10/01/17 16:52 Active Vital Signs [RC] PFP Care 10/01/17 16:52 Active Nothing per Oral Now Diet [DIET] Diet 10/01/17 Breakfast Active Chest 1V Frontal [CR] Stat Exams 10/01/17 16:52 Ordered CULTURE BLOOD [BC] Stat Lab 10/01/17 16:54 Ordered CULTURE BLOOD [BC] Stat Lab 10/01/17 17:00 Received CULTURE WOUND + SMEAR [RM] Stat Lab 10/01/17 17:00 Received Lactated Ringers [Ringers, Lactated] 1,000 ml Med 10/01/17 18:10 Ordered IV .BOLUS Sodium Chloride 0.9% [Saline Flush] Med 10/01/17 16:52 Active 10 ml FLUSH ASDIRECTED PRN Blood Culture x2 Reflex Set [OM.PC] Urgent Oth 10/01/17 16:54 Ordered Obtain Past Medical Record [OM.PC] Urgent Oth 10/01/17 16:52 Active Peripheral IV Insertion Adult [OM.PC] Stat Oth 10/01/17 16:52 Ordered Resuscitation Status Stat Resus Stat 10/01/17 16:52 Ordered Medication Orders Lactated Ringer's (Ringers, Lactated) 1,000 mls @ 100 mls/hr IV .BOLUS ONE Stop: 10/02/17 04:08 Sodium Chloride (Saline Flush) 10 ml FLUSH ASDIRECTED PRN PRN Reason: Keep Vein Open Last Admin: 10/01/17 17:29 Dose: 10 ml Labs: Laboratory Tests 10/01/17 10/01/17 10/01/17 Range/Units 17:00 17:00 17:00 WBC 11.2 H (4.0-10.2) K/uL RBC 4.12 (3.77-5.09) M/uL Hgb 13.3 (11.7-15.5) g/dL Hct 40.1 (34.0-46.0) % MCV 97.3 (84.0-98.0) fL MCH 32.3 (28.2-33.3) pg MCHC 33.2 (31.7-36.0) g/dL RDW 14.2 H (11.2-14.1) % Plt Count 340 (150-350) K/uL Neut % (Auto) 67.9 (45.0-80.0) % Lymph % (Auto) 24.0 (10.0-50.0) % Sawyer % (Auto) 5.6 (2.0-14.0) % Eos % (Auto) 2.2 (0.0-5.0) % Baso % (Auto) 0.3 (0.0-2.0) % Neut # (Auto) 7.59 H (1.40-7.00) K/uL Lymph # (Auto) 2.69 (0.50-3.50) K/uL Sawyer # (Auto) 0.63 (0.00-1.00) K/uL Eos # (Auto) 0.25 (0.00-0.50) K/uL Baso # (Auto) 0.03 (0.00-0.20) K/uL PT 10.4 (9.8-11.7) SEC INR 1.0 APTT 22.4 (22.1-29.8) SEC D-Dimer, Quantitative 1070 H (0-400) ng/mL Sodium (136-145) mmol/L Potassium (3.5-5.1) mmol/L Chloride (98-107) mmol/L Carbon Dioxide (21.0-32.0) mmol/L BUN (7-18) mg/dL Creatinine (0.51-1.17) mg/dL Est Cr Clr Drug Dosing mL/min Estimated GFR (MDRD) mL/min Glucose (74-106) mg/dL Lactic Acid (0.4-2.0) mmol/L Uric Acid (2.6-7.2) mg/dL Calcium (8.5-10.1) mg/dL Magnesium (1.8-2.4) mg/dL Total Bilirubin (0.2-1.0) mg/dL AST (15-37) U/L ALT (12-78) U/L Alkaline Phosphatase (46-116) IU/L Creatine Kinase (26-308) U/L Creatine Kinase Index (0.0-2.5) % CK-MB (CK-2) (0.00-3.60) ng/mL Troponin I (0.000-0.056) ng/mL NT-Pro-B Natriuret Pep (0-125) pg/mL Total Protein (6.4-8.2) g/dL Albumin (3.4-5.0) g/dL TSH, Ultra Sensitive (0.358-3.740) mIU/mL 10/01/17 10/01/17 Range/Units 17:00 17:00 WBC (4.0-10.2) K/uL RBC (3.77-5.09) M/uL Hgb (11.7-15.5) g/dL Hct (34.0-46.0) % MCV (84.0-98.0) fL MCH (28.2-33.3) pg MCHC (31.7-36.0) g/dL RDW (11.2-14.1) % Plt Count (150-350) K/uL Neut % (Auto) (45.0-80.0) % Lymph % (Auto) (10.0-50.0) % Sawyer % (Auto) (2.0-14.0) % Eos % (Auto) (0.0-5.0) % Baso % (Auto) (0.0-2.0) % Neut # (Auto) (1.40-7.00) K/uL Lymph # (Auto) (0.50-3.50) K/uL Sawyer # (Auto) (0.00-1.00) K/uL Eos # (Auto) (0.00-0.50) K/uL Baso # (Auto) (0.00-0.20) K/uL PT (9.8-11.7) SEC INR APTT (22.1-29.8) SEC D-Dimer, Quantitative (0-400) ng/mL Sodium 140 (136-145) mmol/L Potassium 3.4 L (3.5-5.1) mmol/L Chloride 108 H (98-107) mmol/L Carbon Dioxide 24.8 (21.0-32.0) mmol/L BUN 13 (7-18) mg/dL Creatinine 0.91 (0.51-1.17) mg/dL Est Cr Clr Drug Dosing 91.85 mL/min Estimated GFR (MDRD) > 60 mL/min Glucose 100 (74-106) mg/dL Lactic Acid 0.8 (0.4-2.0) mmol/L Uric Acid 5.1 (2.6-7.2) mg/dL Calcium 8.5 (8.5-10.1) mg/dL Magnesium 1.9 (1.8-2.4) mg/dL Total Bilirubin 0.3 (0.2-1.0) mg/dL AST 22 (15-37) U/L ALT 37 (12-78) U/L Alkaline Phosphatase 154 H (46-116) IU/L Creatine Kinase 22 L (26-308) U/L Creatine Kinase Index 6.8 H (0.0-2.5) % CK-MB (CK-2) 1.50 (0.00-3.60) ng/mL Troponin I 0.007 (0.000-0.056) ng/mL NT-Pro-B Natriuret Pep 2991 H (0-125) pg/mL Total Protein 6.9 (6.4-8.2) g/dL Albumin 3.0 L (3.4-5.0) g/dL TSH, Ultra Sensitive 0.742 (0.358-3.740) mIU/mL Microbiology 10/01/17 17:00 Gram Stain - Final Foot, Right Gram stain was negative. Wound culture and sensitivity from digit #2 of the right foot is pending Blood cultures 2 are pending Meds: Medications Generic Name Dose Route Start Last Admin Trade Name Freq PRN Reason Stop Dose Admin Lactated Ringer's 1,000 mls @ 100 mls/hr 10/01/17 18:10 Ringers, Lactated IV 10/02/17 04:08 .BOLUS ONE Sodium Chloride 10 ml 10/01/17 16:52 10/01/17 17:29 Saline Flush FLUSH 10 ml ASDIRECTED PRN Administration Keep Vein Open Discontinued Medications Generic Name Dose Route Start Last Admin Trade Name Freq PRN Reason Stop Dose Admin Famotidine 40 mg 10/01/17 16:52 10/01/17 17:29 Pepcid IVPUSH 10/01/17 16:53 40 mg ONETIME ONE Administration Neomycin/Polymyxin/Bacitracin 1 each 10/01/17 17:32 10/01/17 17:38 Triple Antibiotic Oint TOP 10/01/17 17:33 1 each ONETIME ONE Administration - Radiology Interpretation Free Text/Narrative:: on air talent shows normal sinus rhythm in the 70s with no ectopy or arrhythmia. Chest X-ray, portable, shows evidence of pacemaker/ICD in the left upper chest region with leads in appropriate position. Mild to moderate mostly centralized CHF with no pleural effusions, pneumothorax, pulmonary infiltrates, cardiomegaly , etc. Departure - Departure Time of Disposition: 18:45 Disposition: DC/Tfer to Acute Hospital 02 Condition: Fair Clinical Impression: Hypotension, CHF (congestive heart failure), Coronary artery disease, Hypokalemia, Iron deficiency anemia, Tobacco abuse counseling, Hypothyroidism ( acquired), Hypoalbuminemia, Caries, Cellulitis, Mixed anxiety depressive disorder - Discharge Information *PRESCRIPTION DRUG MONITORING PROGRAM REVIEWED*: Not Applicable *COPY OF PRESCRIPTION DRUG MONITORING REPORT IN PATIENT EMILY: Not Applicable Referrals: PCP,None [Primary Care Provider] - Forms: ED Department Discharge, Interfacility Transfer EMTALA - Problem List & Annotations (1) Hypotension SNOMED Code(s): 48692614 Code(s): I95.9 - HYPOTENSION, UNSPECIFIED Status: Chronic Priority: High Current Visit: Yes Onset Date: 10/01/17 Annotation/Comment:: Significant hypotension likely secondary to mild dehydration and baseline chronic moderate to severe ischemic cardiomyopathy with no direct evidence of sepsis as below. Secondary to her CHF IV fluids were initiated with caution with initial 500 mL IV bolus of lactated Ringer's after her systolic blood pressure decreased from the upper 90s at time of arrival to the 70s and low 80s. After initial IV bolus her systolic blood pressure did improve to the 90s with IV fluids decreased to 100 mL per hour thereafter. Unable to obtain manual blood pressures secondary to her hypotension with variable automatic blood pressures positional in nature with her arm. Paramedics aware of her hypotension with increase of rate of IV fluids with caution secondary to her CHF. Telephone consultation at 17:[address] Moyer, hospitalist at [facility], who does agree to accept the patient for direct admission. Per recommendations from the hospitalist IV vasopressors were not initiated prior to transfer with consideration of ICU care depending on her clinical course and response. Qualifiers: Hypotension type: other hypotension type Qualified Code(s): I95.89 - Other hypotension (2) CHF (congestive heart failure) SNOMED Code(s): 70624671 Code(s): I50.9 - HEART FAILURE, UNSPECIFIED Status: Acute Priority: High Current Visit: Yes Onset Date: 05/22/17 Annotation/Comment:: Only mild CHF based on today's chest x-ray. No recent chest pain or anginal type symptoms despite significant cardiac history as above. Patient did have successful left- sided thoracentesis on 09/11/17 with no remaining pleural effusion at this time. Note recent echocardiogram on 09/09/17 showing improvement of her cardiac function as above. Mild change in her troponin I likely secondary to her CHF with artifactually elevated CK index likely secondary to low baseline CK. Otherwise EKG was normal. Further cardiology consultation depending on her clinical course secondary to her current hypotension. Note history of chronic d- dimer elevation with no clinical evidence of DVT or PE. Consider repeat CTA of the chest depending on her clinical course, however. She does have a history of shock secondary to heparin administration. Qualifiers: Heart failure type: unspecified Heart failure chronicity: chronic Qualified Code(s): I50.9 - Heart failure, unspecified (3) Coronary artery disease SNOMED Code(s): 47501329 Code(s): I25.10 - ATHSCL HEART DISEASE OF [place] CORONARY ARTERY W/O ANG PCTRS Status: Acute Priority: High Current Visit: Yes Onset Date: Annotation/Comment:: As above Qualifiers: Coronary Disease-Associated Artery/Lesion type: [place] artery [place] vs. transplanted heart: [place] heart Associated angina: without angina Qualified Code(s): I25.10 - Atherosclerotic heart disease of [place] coronary artery without angina pectoris (4) Cellulitis SNOMED Code(s): 650602932 Code(s): L03.90 - CELLULITIS, UNSPECIFIED Status: Acute Priority: Medium Current Visit: Yes Onset Date: ~09/27/17 Annotation/Comment:: Note recently initiated doxycycline therapy secondary to cellulitis of the left foot. Despite recent amputations of her toes on the right foot as above no direct evidence of acute infection with wound culture taken from the second right toe surgical site. Gram stain was negative with blood cultures 2 and wound culture for culture and sensitivity already ordered. Lactic acid is normal only mild WBC elevation. Qualifiers: Site of cellulitis: extremity Site of cellulitis of extremity: lower extremity Laterality: left Qualified Code(s): L03.116 - Cellulitis of left lower limb (5) Caries SNOMED Code(s): 60698168 Code(s): K02.9 - DENTAL CARIES, UNSPECIFIED Status: Chronic Priority: Medium Current Visit: Yes Annotation/Comment:: Follow-up with her dentist once her current health situation is stabilized. (6) Hypoalbuminemia SNOMED Code(s): 759780386 Code(s): E88.09 - OTH DISORDERS OF PLASMA-PROTEIN METABOLISM, NEC Status: Acute Priority: High Current Visit: Yes Onset Date: 07/14/17 Annotation/ Comment:: Resume previously recommended high protein Glucerna supplements as snacks, which the patient is no longer taking. (7) Hypokalemia SNOMED Code(s): 97271288 Code(s): E87.6 - HYPOKALEMIA Status: Acute Priority: Medium Current Visit: Yes Annotation/Comment:: Lactated Ringer's initiated in the emergency room as above. Note recent mild loose stools and emesis significant abdominal complaints as above. (8) Hypothyroidism (acquired) SNOMED Code(s): 892273960 Code(s): E03.9 - HYPOTHYROIDISM, UNSPECIFIED Status: Acute Priority: Medium Current Visit: Yes Onset Date: 07/14/17 Annotation/Comment:: Currently under therapy. TSH is normal at this time. (9) Iron deficiency anemia SNOMED Code(s): 49117777 Code(s): D50.9 - IRON DEFICIENCY ANEMIA, UNSPECIFIED Status: Chronic Priority: Medium Current Visit: Yes Onset Date: 07/14/17 Annotation/ Comment:: No significant anemia today with resolution of previous thrombocytopenia. Continue current iron sulfate therapy. Qualifiers: Iron deficiency anemia type: other iron deficiency Qualified Code(s): D50.8 - Other iron deficiency anemias (10) Tobacco abuse counseling SNOMED Code(s): 372404507, 158520286, 410339615 Code(s): Z71.6 - TOBACCO ABUSE COUNSELING Status: Chronic Current Visit: Yes Annotation/Comment:: Patient once and again encouraged to try to stop smoking MERARI with significant decreased smoking since her recent cardiac events in May as above. (11) Hyperlipidemia SNOMED Code(s): 59998424 Code(s): E78.5 - HYPERLIPIDEMIA, UNSPECIFIED Status: Chronic Priority: Medium Current Visit: No Annotation/Comment:: Currently under therapy. Qualifiers: Hyperlipidemia type: unspecified Qualified Code(s): E78.5 - Hyperlipidemia , unspecified (12) Mixed anxiety depressive disorder SNOMED Code(s): 951950765 Code(s): F41.8 - OTHER SPECIFIED ANXIETY DISORDERS Status: Chronic Priority: Medium Current Visit: No Annotation/Comment:: Stable by patient history, although still under somewhat moderate control secondary to her chronic illnesses. Emotional support was provided. Continue to observe closely by her regular providers. - Problem List Review Problem List Initiated/Reviewed/Updated: Yes - My Orders Last 24 Hours: My Active Orders 10/01/17 16:52 Cardiac Monitoring [RC] . DIRECTED EKG Documentation Completion [RC] ASDIRECTED Oxygen Therapy, ED [RC] PRN Peripheral IV Care [RC] . DIRECTED Pulse Oximetry [RC] CONTINUOUS Up With Assistance [RC] PFP Vital Signs [RC] PFP Chest 1V Frontal [CR] Stat Sodium Chloride 0.9% [Saline Flush] 10 ml FLUSH ASDIRECTED PRN Obtain Past Medical Record [OM.PC] Urgent Peripheral IV Insertion Adult [OM.PC] Stat Resuscitation Status Stat 10/01/17 16:54 CULTURE BLOOD [BC] Stat Blood Culture x2 Reflex Set [OM.PC] Urgent 10/01/17 17:00 CULTURE BLOOD [BC] Stat CULTURE WOUND + SMEAR [RM] Stat 10/01/17 18:10 Lactated Ringers [Ringers, Lactated] 1,000 ml IV .BOLUS 10/01/17 Breakfast Nothing per Oral Now Diet [DIET] - Assessment/Plan Last 24 Hours: My Active Orders 10/01/17 16:52 Cardiac Monitoring [RC] . DIRECTED EKG Documentation Completion [RC] ASDIRECTED Oxygen Therapy, ED [RC] PRN Peripheral IV Care [RC] . DIRECTED Pulse Oximetry [RC] CONTINUOUS Up With Assistance [RC] PFP Vital Signs [RC] PFP Chest 1V Frontal [CR] Stat Sodium Chloride 0.9% [Saline Flush] 10 ml FLUSH ASDIRECTED PRN Obtain Past Medical Record [OM.PC] Urgent Peripheral IV Insertion Adult [OM.PC] Stat Resuscitation Status Stat 10/01/17 16:54 CULTURE BLOOD [BC] Stat Blood Culture x2 Reflex Set [OM.PC] Urgent 10/01/17 17:00 CULTURE BLOOD [BC] Stat CULTURE WOUND + SMEAR [RM] Stat 10/01/17 18:10 Lactated Ringers [Ringers, Lactated] 1,000 ml IV .BOLUS 10/01/17 Breakfast Nothing per Oral Now Diet [DIET] Assessment:: As above Plan: As above. Extensive precautions were given to the patient and her , who are in agreement with the treatment plan. Ambulance transfer with chef manager accompaniment.
[2017-10-01] MEDS ORDERED: Sodium Chloride 0.9% 10 ML Syringe FLUSH PRN (16:52)
[2017-10-01] MEDS ORDERED: Famotidine 20 MG/2 ML SDV IVPUSH ONE (16:52)
[2017-10-01] MEDS ORDERED: Bacitracin/Neomycin/Polymyxin B Oint 0.9 GM U/D Packet TOP ONE (17:32)
[2017-10-01 17:37] LABS: CHLORIDE,CL 108 mmol/L (98-107); SODIUM,NA 140 mmol/L (136-145)
[2017-10-01] MEDS: Lactated Ringers 1,000 ML IV ONE ×2 (17:37→18:10)
[2017-10-01] MEDS ORDERED: Lactated Ringers 1,000 ML IV SCH (17:45)
[2017-10-01] MEDS ORDERED: Lactated Ringers 1,000 ML IV ONE (18:10)
[2017-10-01 18:35] VITALS: BP 75/44
== END 2017-10-01 18:45 ==
LOC: LL.ED 16:30
DX: I50.9 Heart failure, unspecified (principal); I95.9 Hypotension, unspecified; I25.10 Atherosclerotic heart disease of native coronary artery without angina pectoris; L03.031 Cellulitis of right toe; E87.6 Hypokalemia; D50.9 Iron deficiency anemia, unspecified; E03.9 Hypothyroidism, unspecified; E88.09 Other disorders of plasma-protein metabolism, not elsewhere classified; F41.8 Other specified anxiety disorders; K02.9 Dental caries, unspecified; I25.2 Old myocardial infarction; E66.9 Obesity, unspecified; F17.210 Nicotine dependence, cigarettes, uncomplicated; Z88.8 Allergy status to other drugs, medicaments and biological substances; Z79.899 Other long term (current) drug therapy; Z71.6 Tobacco abuse counseling
CPT/HCPCS: 36415; 71045; 80053; 82550; 82553; 83605; 83735; 83880; 84443; 84484; 84550; 85025; 85379; 85610; 85730; 87040; 87070; 87077; 87205; 93005; 96361; 96374; 99285; J3490; J7050; J7120

== ENCOUNTER 2017-10-25 16:38 | Emergency (ER) | payer OTHER ==
[2017-10-25] MEDS ORDERED: Sodium Chloride 0.9% 10 ML Syringe FLUSH PRN (16:42)
[2017-10-25 18:04] LABS: CHLORIDE,CL 106 mmol/L (98-107); SODIUM,NA 141 mmol/L (136-145)
--- NOTE | 2017-10-25 18:15 | EDM.PDOC ---
ED HPI GENERAL MEDICAL PROBLEM - General Chief Complaint: Cardiovascular Problem Stated Complaint: heart palpitations and abnormal EKG in clinic Time Seen by Provider: 10/25/17 16:53 Source of Information: Reports: Patient History Limitations: Reports: No Limitations - History of Present Illness INITIAL COMMENTS - FREE TEXT/NARRATIVE: Patient comes to ER with complaint of feeling irregular heart beat at times. This has been going on for a few weeks but she feels that episodes are becoming more frequent. No increased SOB. No chest pain. No sweating/nausea/emesis. No dizziness/ neuro changes. Was told by clinic to come to the ER after they performed an EKG. No medication changes per patient. No other recent health changes. She thought that maybe her anxiety could be contributing but then felt episodes happen when she was relaxed, such as when she watches TV or reads a book. Patient has had multiple health issues within the last 6 months, please refer to chart for further information. 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. Has been otherwise doing well and recently returned to work. Bilateral Feet Pain Score (Numeric/FACES): 2 - Related Data Allergies Allergy/AdvReac Type Severity Reaction Status Date / Time heparin Allergy Bleeding Verified 10/25/17 16:39 Home Meds: Home Meds Acetaminophen [Tylenol] 650 mg PO Q4H PRN tablet 08/14/17 [Rx] Amiodarone [Cordarone] 200 mg PO BID@1000,2200 #30 tablet 08/14/17 [Rx] Aspirin 81 mg PO DAILY@1000 tab.chew 08/14/17 [Rx] Ferrous Sulfate 325 mg PO BID@1200,1800 tablet 08/14/17 [Rx] Levothyroxine [Synthroid] 50 mcg PO DAILY@1000 #30 tablet 08/14/17 [Rx] Metoprolol Tartrate [Lopressor] 25 mg PO BID@1000,2200 #30 tablet 08/14/17 [Rx] Multivitamins [Tab-A-Julia] 1 tab PO DAILY@1000 tablet 08/14/17 [Rx] Non-Formulary Medication [NF Drug] 1 each PO DAILY@2200 each 08/14/17 [Rx] Ondansetron [Zofran ODT] 4 mg PO Q6H PRN #30 tab.dis 08/14/17 [Rx] Pantoprazole Sodium 40 mg PO DAILY #30 tablet. 08/14/17 [Rx] Ticagrelor [Brilinta] 90 mg PO BID@1000,2200 #60 tablet 08/14/17 [Rx] Citalopram Hydrobromide [Celexa] 10 mg PO DAILY@199910/25/17 [History] Diphenoxylate HCl/Atropine [Lomotil] 1 tab PO Q6H PRN 10/25/17 [History] Gabapentin [Neurontin] 300 mg PO BID 10/25/17 [History] oxyCODONE HCl/Acetaminophen [Endocet 5-325 Tablet] 3 each PO Q6HR PRN 10/25/17 [ History] Past Medical History HEENT History: Reports: Allergic Rhinitis, Impaired Vision Other HEENT History: Patient wears glasses Cardiovascular History: Reports: Aneurysm, Arrhythmia, Automatic Implantable Cardioverter Defibrillators, Blood Clots/VTE/DVT, CAD, Cardiomyopathy, Heart Failure, High Cholesterol, CA, Pacemaker, PVD, SOB on Exertion, Stents, Syncope , Other (See Below) Other Cardiovascular History: Syncopal episode secondary to dehydration on . 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 Refractory recurrent ventricular fibrillation with secondary cardiac arrest on 05/22/17, 06/03/17, and 06/15/17. Bilateral DVTs of the lower extremities in May 2017. Recurrent tachycardia in 2012 of unknown type and etiology and related to anxiety at that time. Dry gangrene of the toes of her right foot secondary to post CA vascular injury as above/below. Chronic d- dimer elevation. Respiratory History: Reports: Intubation, Previous, Other (See Below) Other Respiratory History: Initial endotracheal intubation on 05/1917 with reintubation on 06/03/17 and 06/29/17 Gastrointestinal History: Reports: GI Bleed, Hepatitis, Other (See Below) Other Gastrointestinal History: Severe lower intestinal GI bleed in June 2017 after acute CA in May 2017 with subsequent operative procedure required as below. Hepatic injury/LFTs elevation secondary to acute CA in May 2017. 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 jaundice. Genitourinary History: Reports: Acute Renal Failure, Dialysis, Other (See Below) Other Genitourinary History: Acute renal failure in May and June 2017 secondary to complications from acute CA in May 2017 with dialysis required CLINICAL LABORATORY SCIENCE PROFESSOR History: Reports: Dysfunctional Uterine Bleeding, Other CLINICAL LABORATORY SCIENCE PROFESSOR History: Twin with as below. Dysmenorrhea/ menorrhagia with irregular menses since May 2017 with LMP of 09/09/17. Musculoskeletal History: Reports: Arthritis, Osteoarthritis Neurological History: Reports: CVA, Neuropathy, Peripheral, Other (See Below) Other Neuro History: Diffuse multiple bilateral small cerebral and cerebellar hemorrhages on 06/03/17 and/or septic infarctions subsequent to acute CA on 2017 with secondary sepsis and DIC Psychiatric History: Reports: Anxiety, Bipolar, Depression, Other (See Below) Other Psychiatric History: Anxiety depression disorder secondary to her multiple health problems in May 2017 as above. Previous Bipolar disorder with some ashley in 2012. Endocrine/Metabolic History: Reports: Obesity/BMI 30+, Other (See Below) Other Endocrine/Metabolic History: Hypoglycemia during . Benign thyroid cysts. Hematologic History: Reports: Anemia, Blood Transfusion(s), Heparin Induced Thrombocytopenia, Iron Deficiency, Other (See Below) Other Hematologic History: Massive transfusion protocol on 05/23/17 after removal of ECMO with additional 2 units of packed red blood cells on 06/14 and . Thrombocytopenia and DIC secondary to sepsis in May 2017. Subsequent deficiency anemia requiring iron infusions. Immunologic History: Reports: None Oncologic (Cancer) History: Reports: Cervix, Other (See Below) Other Oncologic History: Previous abnormal Pap smear Dermatologic History: Reports: None, Other (See Below) Other Dermatologic History: Acne vulgaris - Infectious Disease History Infectious Disease History: Reports: Chicken Pox, Shingles, Other (See Below). Denies: C-Difficile, Meningitis, Mononucleosis, MRSA, Mumps, Pertussis ( Whooping Cough), Rheumatic Fever, Rubella, Scarlet Fever, TB, VRE Other Infectious Disease History: Stenotrophomonas maltophilia sepsis secondary to postoperative CA course in May 2017 with secondary DIC as above. Right cervical herpes zoster in November 2012. Recurrent herpes types 1. - Past Surgical History Head Surgeries/Procedures: Reports: None HEENT Surgical History: Reports: Oral Surgery, Other (See Below) Other HEENT Surgeries/Procedures: Multiple teeth extractions Cardiovascular Surgical History: Reports: AICD, Carotid Stents, Coronary Artery Stent, Pacer, Vascular Surgery Other Cardiovascular Surgeries/Procedures: Drug-eluting stents 3 of the right coronary artery overlapping in nature and additional drug-eluting stent 1 over the left main coronary artery and proximal LAD on 05/22/17 secondary to aneurysm/ dissection. Repair of right femoral artery dissection with additional required fasciotomy and 06/02/17 secondary to ECMO catheter. Right subclavian artery banding on 06/03/17 secondary to hemorrhage/hematoma from ECMO catheter with evacuation of right axillary hematoma on 06/08/17. Trans-axillary IABP placed on 06/08/17 with replacement on 06/11/17. Middle celiac artery embolization on . Right leg femoral artery stent placement and fasciotomy of the right leg on 05/23/17 and subsequent closure on 05/26/17. PICC line on 06/21/17. AICD/pacemaker placement on 07/04/17 Respiratory Surgical History: Reports: Thoracentesis, Other (See Below) Other Respiratory Surgeries/Procedures: Thoracentesis of large left pleural effusion on 09/11/17. GI Surgical History: Reports: Colonoscopy, Other (See Below) Other GI Surgeries/Procedures: Flexible sigmoidoscopy on 06/13/17 with subsequent colonoscopy on 06/15/17. Female Surgical History: Reports: Section, Tubal Ligation, Other ( See Below) Other Female Surgeries/Procedures: Alfonso catheter placement by urology on . Bilateral tubal ligation in 2007. secondary to twin delivery on 02/25/07. Endocrine Surgical History: Reports: None Neurological Surgical History: Reports: Lumbar Spine, Other (See Below) Other Neurological Surgeries/Procedures: Stellate ganglion block on 06/23/17. Musculoskeletal Surgical History: Reports: Other (See Below) Other Musculoskeletal Surgeries/Procedures:: Partial amputations of the distal phalanges of digits number 15 of the right foot secondary to dry gangrene on . Oncologic Surgical History: Reports: None Dermatological Surgical History: Reports: None - Past Imaging History Past Imaging History: Reports: Angiography (Heart catheterization on 05/22/17 with procedures as above.), Cardiac Echo (Last echocardiogram on 09/09/17 with improved ejection fraction of 3035 percent with previous echocardiogram on 06/04 with ejection fraction of only 2530 percent and previous echocardiogram at time of her CA on 05/22/17 showing an ejection fraction of only 510 percent), CAT Scan (CT of the head on 06/13/17, 06/03/17, and 11/30/12. CTA of the chest on , 06/14/17, and 10/22/09. CT of the neck on 11/26/12. CT of the maxillofacial region on 10/06/10.), Ultrasound (Soft tissue ultrasound of the neck and thyroid gland on 11/23/12. Multiple previous abdominal ultrasounds), Venous Doppler ( Venous Doppler studies of the lower extremities 2 in May 2017 with previous bilateral lower extremity Doppler studies on 10/22/09.) Social & Family History - Family History Family Medical History: Noncontributory HEENT: Reports: None Cardiac: Reports: Blood Clots/VTE/DVT, High Cholesterol, Hypertension, Other ( See Below) Other Cardiac Family History: Mother with history of DVT of her leg on one occasion with sister having recurrent bilateral DVTs. Father with hyperlipidemia and hypertension. Respiratory: Reports: None GI: Reports: None : Reports: None OBGYN: Reports: None Musculoskeletal: Reports: None Neurological: Reports: Seizure, Other (See Below) Other Neurological Family History: Sister with history of grand mal seizure disorder. Psychiatric: Reports: Anxiety, Depression, Other (See Below) Other Psychiatric Family History: Sister of anxiety depression disorder. 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 ED EXAM, GENERAL - Physical Exam Exam: See Below Exam Limited By: No Limitations General Appearance: Alert, WD/WN, No Apparent Distress Eye Exam: Bilateral Eye: EOMI, PERRL Ears: Normal External Exam, Normal Canal Nose: Normal Inspection Throat/Mouth: Normal Inspection, Normal Voice, No Airway Compromise Neck: Supple, Non-Tender Respiratory/Chest: No Respiratory Distress, Lungs Clear, No Accessory Muscle Use , Respiratory Distress Cardiovascular: Normal Peripheral Pulses, Regular Rate, Rhythm, No Edema, No Murmur Peripheral Pulses: 2+: Radial (L), Radial (R) GI/Abdominal: Normal Bowel Sounds, Soft, Non-Tender, No Distention (Female) Exam: Deferred Rectal (Female) Exam: Deferred Back Exam: Normal Inspection Extremities: Normal Inspection, Normal Capillary Refill Neurological: Alert, Oriented, Normal Cognition, Normal Gait Psychiatric: Normal Affect Skin Exam: Warm, Dry, Intact, Normal Color EKG INTERPRETATION EKG Date: 10/25/17 Time: 16:00 Rhythm: NSR Rate (Beats/Min): 94 [place]: Normal P-Wave: Present QRS: Normal ST-T: Normal QT: Prolonged Comparison: No Change (overall no significant change noted when compared to previous EKG) Course - Vital Signs Last Recorded V/S: Last Vital Signs Temp 36.9 C 10/25/17 17:03 Pulse 76 10/25/17 18:18 Resp 21 H 10/25/17 18:18 BP 97/72 10/25/17 18:18 Pulse Ox 99 10/25/17 18:18 - Orders/Labs/Meds Orders: Active Orders 24 hr Category Date Time Status EKG Documentation Completion [RC] ASDIRECTED Care 10/25/17 17:18 Active MAGNESIUM [CHEM] Routine Lab 10/25/17 19:18 Ordered Saline Lock Insert [OM.PC] Routine Oth 10/25/17 16:42 Ordered EKG 12 Lead [EK] Stat Ther 10/25/17 17:18 Ordered Labs: Laboratory Tests 10/25/17 10/25/17 Range/Units 16:48 16:48 WBC 7.3 (4.0-10.2) K/uL RBC 3.97 (3.77-5.09) M/uL Hgb 12.9 (11.7-15.5) g/dL Hct 38.6 (34.0-46.0) % MCV 97.2 (84.0-98.0) fL MCH 32.5 (28.2-33.3) pg MCHC 33.4 (31.7-36.0) g/dL RDW 14.0 (11.2-14.1) % Plt Count 281 (150-350) K/uL Neut % (Auto) 61.9 (45.0-80.0) % Lymph % (Auto) 30.0 (10.0-50.0) % [place] % (Auto) 5.3 (2.0-14.0) % Eos % (Auto) 2.5 (0.0-5.0) % Baso % (Auto) 0.3 (0.0-2.0) % Neut # (Auto) 4.54 (1.40-7.00) K/uL Lymph # (Auto) 2.20 (0.50-3.50) K/uL [place] # (Auto) 0.39 (0.00-1.00) K/uL Eos # (Auto) 0.18 (0.00-0.50) K/uL Baso # (Auto) 0.02 (0.00-0.20) K/uL Sodium 141 (136-145) mmol/L Potassium 3.7 (3.5-5.1) mmol/L Chloride 106 (98-107) mmol/L Carbon Dioxide 23.7 (21.0-32.0) mmol/L BUN 18 (7-18) mg/dL Creatinine 1.01 (0.51-1.17) mg/dL Est Cr Clr Drug Dosing 82.76 mL/min Estimated GFR (MDRD) > 60 mL/min Glucose 96 (74-106) mg/dL Calcium 8.9 (8.5-10.1) mg/dL Total Bilirubin 0.2 (0.2-1.0) mg/dL AST 42 H (15-37) U/L ALT 70 (12-78) U/L Alkaline Phosphatase 254 H (46-116) IU/L Creatine Kinase Index 2.6 H (0.0-2.5) % CK-MB (CK-2) 2.30 (0.00-3.60) ng/mL Troponin I 0.008 (0.000-0.056) ng/mL Total Protein 7.4 (6.4-8.2) g/dL Albumin 3.4 (3.4-5.0) g/dL Meds: Medications Discontinued Medications Generic Name Dose Route Start Last Admin Trade Name Freq PRN Reason Stop Dose Admin Sodium Chloride 10 ml 10/25/17 16:42 Saline Flush FLUSH ASDIRECTED PRN Keep Vein Open - Re-Assessments/Exams Free Text/Narrative Re-Assessment/Exam: 10/25/17 18:14 Prolonged wait time in ER due to lab issues with chemistry analyzer. Normal CBC. Trop negative as was CKMB. Alk phos, AST, CK index were above normal but these are chronic findings for the patient. Patient placed on monitor once she arrived in ER and it was noted that she was having intermittent PVCs. When these were noted, patient would tell staff that she was experiencing the chest sensation again. No runs of PVCs noted. She felt comfortable otherwise, and vital signs were stable. Plan made to discharge patient home, and have her follow up with her Washing Machine Mechanic/cardiology clinic in regards to this to see if they wish to move up her appointment. Information concerning PVCs and possible triggers was also given to the patient. Diet/stress/lifestyle modifiers reviewed. Patient has started to smoke cigarettes again. To observe for changes and follow up as needed if acute worsening problems are noted. Departure - Departure Time of Disposition: 18:32 Disposition: Home, Self-Care 01 Condition: Good Clinical Impression: Isolated premature ventricular contractions Instructions: Premature Ventricular Contraction Referrals: Lilliam Godoy NP [Primary Care Provider] - Forms: ED Department Discharge Additional Instructions: Follow up as needed if worsening symptoms develop. Follow up with your primary provider and tour agent in regards to the PVCs. As discussed, dietary and lifestyle interventions can help improve frequency of PVCs. Given your recent cardiac issues, it is best to discuss this with your tour agent to see if any other studies/interventions would be appropriate, such as wearing a Holter monitor to look at PVC frequency. - My Orders Last 24 Hours: My Active Orders 10/25/17 16:42 Saline Lock Insert [OM.PC] Routine 10/25/17 17:18 EKG Documentation Completion [RC] ASDIRECTED EKG 12 Lead [EK] Stat 10/25/17 19:18 MAGNESIUM [CHEM] Routine - Assessment/Plan Last 24 Hours: My Active Orders 10/25/17 16:42 Saline Lock Insert [OM.PC] Routine 10/25/17 17:18 EKG Documentation Completion [RC] ASDIRECTED EKG 12 Lead [EK] Stat 10/25/17 19:18 MAGNESIUM [CHEM] Routine
[2017-10-25 19:07] VITALS: BP 97/72
== END 2017-10-25 18:45 | disposition home or self-care (01) ==
LOC: LL.ED 16:38
DX: I49.3 Ventricular premature depolarization (principal); E66.9 Obesity, unspecified; F17.210 Nicotine dependence, cigarettes, uncomplicated; Z88.8 Allergy status to other drugs, medicaments and biological substances; Z79.899 Other long term (current) drug therapy
CPT/HCPCS: 36000; 36415; 80053; 82553; 83735; 84484; 85025; 93005; 99285

== ENCOUNTER 2020-01-05 13:34 | Emergency (ER) | payer BC ==
[2020-01-05 13:48] VITALS: BP 102/72; PULSE 119
--- NOTE | 2020-01-05 14:06 | EDM.PDOC ---
ED HPI GENERAL MEDICAL PROBLEM - General Chief Complaint: Lower Extremity Injury/Pain Stated Complaint: foot pain Time Seen by Provider: 01/05/20 13:45 Source of Information: Reports: Patient History Limitations: Reports: No Limitations - History of Present Illness INITIAL COMMENTS - FREE TEXT/NARRATIVE: Patient comes to ER to have toe pain evaluated. Has had increasing discomfort in 4th toe of right foot recently and is concerned about infection or gangreen. History of massive blood clot affecting that leg and that resulted in permanent nerve damage and tissue damage to that leg and foot. Did lose several toes/portions of toes to necrotic injury. Has chronic numbness of much of the lower leg due to the blood clot and resultant compartment syndrome history. Is very nervous that something new is developing regarding this 4th toe. No injury. No fevers Left foot 4th toe Pain Score (Numeric/FACES): 7 - Related Data Allergies Allergy/AdvReac Type Severity Reaction Status Date / Time heparin Allergy Bleeding Verified 01/05/20 13:36 Home Meds: Home Meds oxyCODONE HCl/Acetaminophen [Endocet 5-325 Tablet] 2 each PO Q6HR PRN 10/25/17 [History] DULoxetine [Cymbalta] 30 mg PO DAILY 01/05/20 [History] busPIRone [Buspar] 10 mg PO BID 01/05/20 [History] hydrOXYzine pamoate [Hydroxyzine Pamoate] 1 - 2 tab PO Q6HR PRN 01/05/20 [History] Past Medical History HEENT History: Reports: Allergic Rhinitis, Impaired Vision Other HEENT History: Patient wears glasses Cardiovascular History: Reports: Aneurysm, Arrhythmia, Automatic Implantable Cardioverter Defibrillators, Blood Clots/VTE/DVT, CAD, Cardiomyopathy, Heart Failure, High Cholesterol, IL, Pacemaker, PVD, SOB on Exertion, Stents, Syncope, Other (See Below) Other Cardiovascular History: Syncopal episode secondary to dehydration on 09/08/17. 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 Refractory recurrent ventricular fibrillation with secondary cardiac arrest on 05/22/17, 06/03/17, and 06/15/17. Bilateral DVTs of the lower extremities in May 2017. Recurrent tachycardia in 2012 of unknown type and etiology and related to anxiety at that time. Dry gangrene of the toes of her right foot secondary to post IL vascular injury as above/below. Chronic d-dimer elevation. Respiratory History: Reports: Intubation, Previous, Other (See Below) Other Respiratory History: Initial endotracheal intubation on 05/1917 with reintubation on 06/03/17 and 06/29/17 Gastrointestinal History: Reports: GI Bleed, Hepatitis, Other (See Below) Other Gastrointestinal History: Severe lower intestinal GI bleed in June 2017 after acute IL in May 2017 with subsequent operative procedure required as be low. Hepatic injury/LFTs elevation secondary to acute IL in May 2017. 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 jaundice. Genitourinary History: Reports: Acute Renal Failure, Dialysis, Other (See Below) Other Genitourinary History: Acute renal failure in May and June 2017 secondary to complications from acute IL in May 2017 with dialysis required CORPORATE WEBMASTER History: Reports: Dysfunctional Uterine Bleeding, Other CORPORATE WEBMASTER History: Twin with as below. Dysmeno rrhea/menorrhagia with irregular menses since May 2017 with LMP of 09/09/17. Musculoskeletal History: Reports: Arthritis, Osteoarthritis Neurological History: Reports: CVA, Neuropathy, Peripheral, Other (See Below) Other Neuro History: Diffuse multiple bilateral small cerebral and cerebellar hemorrhages on 06/03/17 and/or septic infarctions subsequent to acute IL on 05/22/2017 with secondary sepsis and DIC Psychiatric History: Reports: Anxiety, Bipolar, Depression, Other (See Below) Other Psychiatric History: Anxiety depression disorder secondary to her multiple health problems in May 2017 as above. Previous Bipolar disorder with some ashley in 2012. Endocrine/Metabolic History: Reports: Obesity/BMI 30+, Other (See Below) Other Endocrine/Metabolic History: Hypoglycemia during . Benign thyroid cysts. Hematologic History: Reports: Anemia, Blood Transfusion(s), Heparin Induced Thrombocytopenia, Iron Deficiency, Other (See Below) Other Hematologic History: Massive transfusion protocol on 05/23/17 after removal of ECMO with additional 2 units of packed red blood cells on 06/14 and 06/28/15. Thrombocytopenia and DIC secondary to sepsis in May 2017. Subsequent deficiency anemia requiring iron infusions. Immunologic History: Reports: None Oncologic (Cancer) History: Reports: Cervix, Other (See Below) Other Oncologic History: Previous abnormal Pap smear Dermatologic History: Reports: None, Other (See Below) Other Dermatologic History: Acne vulgaris - Infectious Disease History Infectious Disease History: Reports: Chicken Pox, Shingles, Other (See Below). Denies: C-Difficile, Meningitis, Mononucleosis, MRSA, Mumps, Pertussis (Whooping Cough), Rheumatic Fever, Rubella, Scarlet Fever, TB, VRE Other Infectious Disease History: Stenotrophomonas maltophilia sepsis secondary to postoperative IL course in May 2017 with secondary DIC as above. Right cervical herpes zoster in November 2012. Recurrent herpes types 1. - Past Surgical History Head Surgeries/Procedures: Reports: None HEENT Surgical History: Reports: Oral Surgery, Other (See Below) Other HEENT Surgeries/Procedures: Multiple teeth extractions Cardiovascular Surgical History: Reports: AICD, Carotid Stents, Coronary Artery Stent, Pacer, Vascular Surgery Other Cardiovascular Surgeries/Procedures: Drug-eluting stents 3 of the right coronary artery overlapping in nature and additional drug-eluting stent 1 over the left main coronary artery and proximal LAD on 05/22/17 secondary to aneurysm/dissection. Repair of right femoral artery dissection with additional required fasciotomy and 06/02/17 secondary to ECMO catheter. Right subclavian artery banding on 06/03/17 secondary to hemorrhage/hematoma from ECMO catheter with evacuation of right axillary hematoma on 06/08/17. Trans-axillary IABP placed on 06/08/17 with replacement on 06/11/17. Middle celiac artery embolization on 06/14/17. Right leg femoral artery stent placement and fasciotomy of the right leg on 05/23/17 and subsequent closure on 05/26/17. PICC line on 06/21/17. AICD/pacemaker placement on 07/04/17 Respiratory Surgical History: Reports: Thoracentesis, Other (See Below) Other Respiratory Surgeries/Procedures: Thoracentesis of large left pleural ef fusion on 09/11/17. GI Surgical History: Reports: Colonoscopy, Other (See Below) Other GI Surgeries/Procedures: Flexible sigmoidoscopy on 06/13/17 with subsequent colonoscopy on 06/15/17. Female Surgical History: Reports: Section, Tubal Ligation, Other (See Below) Other Female Surgeries/Procedures: Alfonso catheter placement by urology on 05/30/17. Bilateral tubal ligation in 2007. secondary to twin delivery on 02/25/07. Endocrine Surgical History: Reports: None Neurological Surgical History: Reports: Lumbar Spine, Other (See Below) Other Neurological Surgeries/Procedures: Stellate ganglion block on 06/23/17. Musculoskeletal Surgical History: Reports: Other (See Below) Other Musculoskeletal Surgeries/Procedures:: Partial amputations of the distal p halanges of digits number 15 of the right foot secondary to dry gangrene on 09/25/17. Oncologic Surgical History: Reports: None Dermatological Surgical History: Reports: None - Past Imaging History Past Imaging History: Reports: Angiography (Heart catheterization on 05/22/17 with procedures as above.), Cardiac Echo (Last echocardiogram on 09/09/17 with improved ejection fraction of 3035 percent with previous echocardiogram on 06/04/17 with ejection fraction of only 2530 percent and previous echocardiogram at time of her IL on 05/22/17 showing an ejection fraction of only 510 percent), CAT Scan (CT of the head on 06/13/17, 06/03/17, and 11/30/12. CTA of the chest on 03/12/17, 06/14/17, and 10/22/09. CT of the neck on 11/26/12. CT of the maxillofacial region on 10/06/10.), Ultrasound (Soft tissue ultrasound of the neck and thyroid gland on 11/23/12. Multiple previous abdominal ultrasounds), Venous Doppler (Venous Doppler studies of the lower extremities 2 in May 2017 with previous bilateral lower extremity Doppler studies on 10/22/09.) Social & Family History - Family History Family Medical History: No Pertinent Family History HEENT: Reports: None Cardiac: Reports: Blood Clots/VTE/DVT, High Cholesterol, Hypertension, Other (See Below) Other Cardiac Family History: Mother with history of DVT of her leg on one occasion with sister having recurrent bilateral DVTs. Father with hyperlipidemia and hypertension. Respiratory: Reports: None GI: Reports: None : Reports: None OBGYN: Reports: None Musculoskeletal: Reports: None Neurological: Reports: Seizure, Other (See Below) Other Neurological Family History: Sister with history of grand mal seizure disorder. Psychiatric: Reports: Anxiety, Depression, Other (See Below) Other Psychiatric Family History: Sister of anxiety depression disorder. 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 ) Psychiatric: Reports: Anxiety ED EXAM, GENERAL - Physical Exam Exam: See Below Exam Limited By: No Limitations General Appearance: Alert, WD/WN, No Apparent Distress Throat/Mouth: Normal Voice, No Airway Compromise Head: Atraumatic, Normocephalic Neck: Supple Respiratory/Chest: No Respiratory Distress Cardiovascular: Tachycardia Extremities: Other (4th toe right foot shows no redness/swelling. Tender with palpation of 2nd/3rd/4th toes. Does have some deformities with portions of some toes missing due to previous anoxic tissue injury. ) Psychiatric: Anxious Skin Exam: Warm, Dry, Intact Course - Vital Signs Last Recorded V/S: Last Vital Signs Temp 36.1 C 01/05/20 13:40 Pulse 119 H 01/05/20 13:40 Resp 18 01/05/20 13:40 BP 102/72 01/05/20 13:40 Pulse Ox 119 H 01/05/20 13:40 - Re-Assessments/Exams Free Text/Narrative Re-Assessment/Exam: 01/05/20 16:34 No suggestion of infection,trauma to skin, or swelling when right foot/toes examined. Suspect nerve pain is most likely cause of the discomfort but cannot rule out possible early bone infection. Recommend calling her grievance manager tomorrow and describing symptoms. May benefit from scan to more fully rule out developing osteomyelitis. To develop follow up plan with her grievance manager/medical team. No further intervention at this time indicated. Patient felt better knowing that toes have unremarkable appearance at this time and was agreeable with the follow up plan. Departure - Departure Time of Disposition: 14:04 Disposition: Home, Self-Care 01 Condition: Good Clinical Impression: Toe pain, right - Discharge Information *PRESCRIPTION DRUG MONITORING PROGRAM REVIEWED*: Not Applicable *COPY OF PRESCRIPTION DRUG MONITORING REPORT IN PATIENT EMILY: Not Applicable Referrals: Obdulia Metzger NP [Primary Care Provider] - Forms: ED Department Discharge Additional Instructions: Follow up with your provider team/podiatry and discuss any appropriate additional imaging that may help evaluate that toe more closely and thus rule out possible low grade chronic infection. Follow up otherwise as needed, vivien cially if you see increased redness/skin breakdown/drainage. Sepsis Event Note (ED) - Evaluation Sepsis Screening Result: No Definite Risk - Focused Exam Vital Signs: Vital Signs Temp Pulse Resp BP Pulse Ox 01/05/20 13:40 36.1 C 119 H 18 102/72 119 H
== END 2020-01-05 14:30 | disposition home or self-care (01) ==
LOC: LL.ED 13:34
DX: M79.674 Pain in right toe(s) (principal); I25.10 Atherosclerotic heart disease of native coronary artery without angina pectoris; I11.0 Hypertensive heart disease with heart failure; F41.9 Anxiety disorder, unspecified; F31.9 Bipolar disorder, unspecified; E66.9 Obesity, unspecified; Z68.32 Body mass index [BMI] 32.0-32.9, adult; Z88.8 Allergy status to other drugs, medicaments and biological substances; Z79.899 Other long term (current) drug therapy
CPT/HCPCS: 99283

== ENCOUNTER 2020-11-26 12:39 | Emergency (ER) | payer BC ==
[2020-11-26] MEDS ORDERED: Aspirin 81 MG Tab.Chew PO ONE (12:46)
[2020-11-26] MEDS ORDERED: Metoprolol Tartrate 25 MG Tab PO ONE (12:48)
[2020-11-26] MEDS ORDERED: Iopamidol 755 Mg/ML 100 ML Bottle IVPUSH ONE (13:00)
--- NOTE | 2020-11-26 13:24 | EDM.PDOC ---
ED HPI GENERAL MEDICAL PROBLEM - General Chief Complaint: Chest Pain Stated Complaint: chest pain Time Seen by Provider: 11/26/20 12:44 Source of Information: Reports: Patient History Limitations: Reports: No Limitations - History of Present Illness INITIAL COMMENTS - FREE TEXT/NARRATIVE: Patient sent here from clinic after she was noted to have elevated Troponin. Reports sharp chest pain around 2am last night that was 10/10, lasted approx 5 min. Went down to a dull ache that was still present this morning. Is now pain-free. No specific radiation of pain reported. No nausea/emesis with the pain. Has felt a bit SOB yesterday and today. Feels less SOB now. Denies any recent illnesses/cough/fevers. No other reported changes. Has hx of previous coronary artery dissection/see past medical records. EKG at 11:14 (clinic) showed normal sinus rhythm with rate of 74. No acute ST changes noted. Troponin 125 Chem/CBC overall unremarkable DDimer mild elevation at 581 - Related Data Allergies Allergy/AdvReac Type Severity Reaction Status Date / Time clopidogrel Allergy Hives Verified 11/26/20 12:41 heparin Allergy Bleeding Verified 01/05/20 13:36 lisinopril Allergy Hives Verified 11/26/20 12:41 losartan Allergy Arrhythmias Verified 11/26/20 13:22 Home Meds: Home Meds oxyCODONE HCl/Acetaminophen [Endocet 5-325 Tablet] 2 each PO Q6HR PRN 10/25/17 [History] Metoprolol Succinate [Toprol XL] 25 mg PO DAILY 11/26/20 [History] Past Medical History HEENT History: Reports: Allergic Rhinitis, Impaired Vision Other HEENT History: Patient wears glasses Cardiovascular History: Reports: Aneurysm, Arrhythmia, Automatic Implantable Cardioverter Defibrillators, Blood Clots/VTE/DVT, CAD, Cardiomyopathy, Heart Failure, High Cholesterol, FL, Pacemaker, PVD, SOB on Exertion, Stents, Syncope, Other (See Below) Other Cardiovascular History: Syncopal episode secondary to dehydration on 09/08/17. 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 Refractory recurrent ventricular fibrillation with secondary cardiac arrest on 05/22/17, 06/03/17, and 06/15/17. Bilateral DVTs of the lower extremities in May 2017. Recurrent tachycardia in 2012 of unknown type and etiology and related to anxiety at that time. Dry gangrene of the toes of her right foot secondary to post FL vascular injury as above/below. Chronic d-dimer elevation. Respiratory History: Reports: Intubation, Previous, Other (See Below) Other Respiratory History: Initial endotracheal intubation on 05/22/17 with reintubation on 06/03/17 and 06/29/17 Gastrointestinal History: Reports: GI Bleed, Hepatitis, Other (See Below) Other Gastrointestinal History: Severe lower intestinal GI bleed in June 2017 after acute FL in May 2017 with subsequent operative procedure required as below. Hepatic injury/LFTs elevation secondary to acute FL in May 2017. 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 jaundice. Genitourinary History: Reports: Acute Renal Failure, Dialysis, Other (See Below) Other Genitourinary History: Acute renal failure in May and June 2017 secondary to complications from acute FL in May 2017 with dialysis required [employer]IGHW[employer] COMMISSIONER History: Reports: Dysfunctional Uterine Bleeding, Other [employer]IGHW[employer] COMMISSIONER History: Twin with as below. Dysmenorrhea/menorrhagia with irregular menses since May 2017 with LMP of 09/09/17. Musculoskeletal History: Reports: Arthritis, Osteoarthritis Neurological History: Reports: CVA, Neuropathy, Peripheral, Other (See Below) Other Neuro History: Diffuse multiple bilateral small cerebral and cerebellar hemorrhages on 06/03/17 and/or septic infarctions subsequent to acute FL on 05/22/2017 with secondary sepsis and DIC Psychiatric History: Reports: Anxiety, Bipolar, Depression, Other (See Below) Other Psychiatric History: Anxiety depression disorder secondary to her multiple health problems in May 2017 as above. Previous Bipolar disorder with some ashley in 2012. Endocrine/Metabolic History: Reports: Obesity/BMI 30+, Other (See Below) Other Endocrine/Metabolic History: Hypoglycemia during . Benign thyroid cysts. Hematologic History: Reports: Anemia, Blood Transfusion(s), Heparin Induced Thrombocytopenia, Iron Deficiency, Other (See Below) Other Hematologic History: Massive transfusion protocol on 05/23/17 after removal of ECMO with additional 2 units of packed red blood cells on 06/14 and 06/28/15. Thrombocytopenia and DIC secondary to sepsis in May 2017. Subsequent deficiency anemia requiring iron infusions. Immunologic History: Reports: None Oncologic (Cancer) History: Reports: Cervix, Other (See Below) Other Oncologic History: Previous abnormal Pap smear Dermatologic History: Reports: None, Other (See Below) Other Dermatologic History: Acne vulgaris - Infectious Disease History Infectious Disease History: Reports: Chicken Pox, Shingles, Other (See Below) Other Infectious Disease History: Stenotrophomonas maltophilia sepsis secondary to postoperative FL course in May 2017 with secondary DIC as above. Right cervical herpes zoster in November 2012. Recurrent herpes types 1. - Past Surgical History Head Surgeries/Procedures: Reports: None HEENT Surgical History: Reports: Oral Surgery, Other (See Below) Other HEENT Surgeries/Procedures: Multiple teeth extractions Cardiovascular Surgical History: Reports: AICD, Carotid Stents, Coronary Artery Stent, Pacer, Vascular Surgery Other Cardiovascular Surgeries/Procedures: Drug-eluting stents 3 of the right coronary artery overlapping in nature and additional drug-eluting stent 1 over the left main coronary artery and proximal LAD on 05/22/17 secondary to aneurysm/dissection. Repair of right femoral artery dissection with additional required fasciotomy and 06/02/17 secondary to ECMO catheter. Right subclavian artery banding on 06/03/17 secondary to hemorrhage/hematoma from ECMO catheter with evacuation of right axillary hematoma on 06/08/17. Trans-axillary IABP placed on 06/08/17 with replacement on 06/11/17. Middle celiac artery embolization on 06/14/17. Right leg femoral artery stent placement and fasciotomy of the right leg on 05/23/17 and subsequent closure on 05/26/17. PICC line on 06/21/17. AICD/pacemaker placement on 07/04/17 Respiratory Surgical History: Reports: Thoracentesis, Other (See Below) Other Respiratory Surgeries/Procedures: Thoracentesis of large left pleural effusion on 09/11/17. GI Surgical History: Reports: Colonoscopy, Other (See Below) Other GI Surgeries/Procedures: Flexible sigmoidoscopy on 06/13/17 with subsequent colonoscopy on 06/15/17. Female Surgical History: Reports: Section, Tubal Ligation, Other (See Below) Other Female Surgeries/Procedures: Alfonso catheter placement by urology on 05/30/17. Bilateral tubal ligation in 2007. secondary to twin delivery on 02/25/07. Endocrine Surgical History: Reports: None Neurological Surgical History: Reports: Lumbar Spine, Other (See Below) Other Neurological Surgeries/Procedures: Stellate ganglion block on 06/23/17. Musculoskeletal Surgical History: Reports: Other (See Below) Other Musculoskeletal Surgeries/Procedures:: Partial amputations of the distal phalanges of digits number 15 of the right foot secondary to dry gangrene on 09/25/17. Oncologic Surgical History: Reports: None Dermatological Surgical History: Reports: None - Past Imaging History Past Imaging History: Reports: Angiography (Heart catheterization on 05/22/17 with procedures as above.), Cardiac Echo (Last echocardiogram on 09/09/17 with improved ejection fraction of 3035 percent with previous echocardiogram on 06/04/17 with ejection fraction of only 2530 percent and previous echocardiogram at time of her FL on 05/22/17 showing an ejection fraction of only 510 percent), CAT Scan (CT of the head on 06/13/17, 06/03/17, and 11/30/12. CTA of the chest on 03/12/17, 06/14/17, and 10/22/09. CT of the neck on 11/26/12. CT of the maxillofacial region on 10/06/10.), Ultrasound (Soft tissue ultrasound of the neck and thyroid gland on 11/23/12. Multiple previous abdominal ultrasounds), Venous Doppler (Venous Doppler studies of the lower extremities 2 in May 2017 with previous bilateral lower extremity Doppler studies on 10/22/09.) Social & Family History - Family History Family Medical History: No Pertinent Family History HEENT: Reports: None Cardiac: Reports: Blood Clots/VTE/DVT, High Cholesterol, Hypertension, Other (See Below) Other Cardiac Family History: Mother with history of DVT of her leg on one occasion with sister having recurrent bilateral DVTs. Father with hyperlipidemia and hypertension. Respiratory: Reports: None GI: Reports: None : Reports: None OBGYN: Reports: None Musculoskeletal: Reports: None Neurological: Reports: Seizure, Other (See Below) Other Neurological Family History: Sister with history of grand mal seizure disorder. Psychiatric: Reports: Anxiety, Depression, Other (See Below) Other Psychiatric Family History: Sister of anxiety depression disorder. 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 Denies: Wheezing, Pleuritic Chest Pain, Cough, Sputum, Hemoptysis Cardiovascular: Reports: Chest Pain. Denies: Lightheadedness, Palpitations, Syncope GI/Abdominal: Reports: No Symptoms : Reports: Hematuria Musculoskeletal: Reports: Other (no acute changes from baseline) Skin: Reports: Other (no acute changes) Psychiatric: Reports: No Symptoms Hematologic/Lymphatic: Reports: No Symptoms ED EXAM, GENERAL - Physical Exam Exam: See Below Exam Limited By: No Limitations General Appearance: Alert, No Apparent Distress, Obese Eye Exam: Bilateral Eye: EOMI, PERRL Ears: Normal External Exam, Normal Canal, Hearing Grossly Normal Nose: No: Nasal Deformity, Nasal Swelling, Nasal Drainage Throat/Mouth: Normal Lips, Normal Voice, No Airway Compromise Head: Atraumatic, Normocephalic Neck: Supple, Non-Tender, Full Range of Motion Respiratory/Chest: No Respiratory Distress, Lungs Clear, Normal Breath Sounds, No Accessory Muscle Use, Chest Non-Tender Cardiovascular: Regular Rate, Rhythm, No Murmur GI/Abdominal: Soft, Non-Tender (Female) Exam: Deferred Rectal (Female) Exam: Deferred Back Exam: No: CVA Tenderness (L), CVA Tenderness (R), Muscle Spasm Extremities: Normal Range of Motion Neurological: Alert, Oriented, Normal Cognition Psychiatric: Normal Affect, Normal Mood Skin Exam: Warm, Dry Course - Vital Signs Last Recorded V/S: Last Vital Signs Temp 36.7 C 11/26/20 12:45 Pulse 81 11/26/20 14:53 Resp 20 11/26/20 14:53 BP 99/66 11/26/20 14:53 Pulse Ox 97 11/26/20 14:53 - Orders/Labs/Meds Orders: Active Orders 24 hr Category Date Time Status Ang Chest [CT] Stat Exams 11/26/20 12:59 Taken Labs: Laboratory Tests 11/26/20 11/26/20 Range/Units 14:28 14:52 Troponin I High Sens 131 H* (<=51) ng/L Specimen Type Urinblad Urine Color Yellow Urine Appearance Clear Urine pH 6.0 (5.0-9.0) Ur Specific [place] 1.010 (1.005-1.030) Urine Protein Negative (NEGATIVE) mg/dL Urine Glucose (UA) Negative (NEGATIVE) mg/dL Urine Ketones Negative (NEGATIVE) mg/dL Urine Occult Blood Trace-intact H (NEGATIVE) Urine Nitrite Negative (NEGATIVE) Urine Bilirubin Negative (NEGATIVE) Urine Urobilinogen 0.2 (0.2-1.0) E.U./dL Ur Leukocyte Esterase Negative (NEGATIVE) Urine RBC 0-5 /HPF Urine WBC 0-5 /HPF Ur Epithelial Cells Occasional /LPF Meds: Medications Discontinued Medications Generic Name Dose Route Start Last Admin Trade Name Freq PRN Reason Stop Dose Admin Aspirin 324 mg 11/26/20 12:46 11/26/20 13:02 Aspirin 81 Mg Tab.Chew PO 11/26/20 12:47 324 mg ONETIME ONE Administration Iopamidol 100 ml 11/26/20 13:00 11/26/20 13:00 Iopamidol 755 Mg/Ml 100 Ml Bottle IVPUSH 11/26/20 13:01 100 ml ONETIME ONE Administration Metoprolol Tartrate 25 mg 11/26/20 12:48 11/26/20 13:02 Metoprolol Tartrate 25 Mg Tab PO 11/26/20 12:49 25 mg ONETIME ONE Administration - Re-Assessments/Exams Free Text/Narrative Re-Assessment/Exam: 11/26/20 16:22 Labs/EKG performed in clinic. See HPI. PE study performed and negative for PE or other obvious acute findings. Prolonged wait time until results obtained. Repeat Troponin at 3pm showed level of 131. No significant change when compared to the 125 at 11am. Call placed to [facility] and there was a bit of a delay until their [employer] could find manager application Cardiology. Able to review patient with . He was concerned that the pain/troponin elevation could be due to blocked stent. He recommended heparinization and angiography but no bed available at [facility]. This was reviewed with patient and she refused to stay/be heparinized and be transferred to another facility other than [facility]. was able to make room in his clinic schedule to see patient tomorrow. Precautions reviewed with patient and she knows to return to ER if pain returns/other acute problems develop. She was pain-free during entire stay in ER and also felt that her SOB improved. Departure - Departure Time of Disposition: 16:00 Disposition: Home, Self-Care 01 Condition: Good Clinical Impression: Elevated troponin Chest pain Qualifiers: Chest pain type: unspecified Qualified Code(s): R07.9 - Chest pain, unspecified - Discharge Information *PRESCRIPTION DRUG MONITORING PROGRAM REVIEWED*: Not Applicable *COPY OF PRESCRIPTION DRUG MONITORING REPORT IN PATIENT EMILY: Not Applicable Referrals: Obdulia Metzger NP [Primary Care Provider] - Forms: ED Department Discharge Additional Instructions: Return to an ER if symptoms return! Keep your phone close by so that [facility] Cardiology clinic can get hold of you so you can be scheduled to see Cardiology tomorrow! Sepsis Event Note (ED) - Evaluation Sepsis Screening Result: No Definite Risk - Focused Exam Vital Signs: Vital Signs Temp Pulse Pulse Resp BP BP BP 11/26/20 14:53 81 20 99/66 11/26/20 14:00 81 19 95/70 11/26/20 13:45 83 15 89/65 L 11/26/20 13:30 87 19 92/72 11/26/20 13:13 88 18 105/70 11/26/20 13:02 83 102/87 11/26/20 12:45 36.7 C 87 23 H 108/72 Pulse Ox 11/26/20 14:53 97 11/26/20 14:00 98 11/26/20 13:45 97 11/26/20 13:30 99 11/26/20 13:13 100 11/26/20 13:02 11/26/20 12:45 100 - My Orders Last 24 Hours: My Active Orders 11/26/20 12:59 Ang Chest [CT] Stat - Assessment/Plan Last 24 Hours: My Active Orders 11/26/20 12:59 Ang Chest [CT] Stat
[2020-11-26 19:16] VITALS: BP 104/63; PULSE 88
== END 2020-11-26 16:20 | disposition home or self-care (01) ==
LOC: LL.ED 12:39
DX: R07.9 Chest pain, unspecified (principal); R79.89 Other specified abnormal findings of blood chemistry; I25.10 Atherosclerotic heart disease of native coronary artery without angina pectoris; E78.00 Pure hypercholesterolemia, unspecified; I50.9 Heart failure, unspecified; I25.2 Old myocardial infarction; Z95.0 Presence of cardiac pacemaker; Z88.8 Allergy status to other drugs, medicaments and biological substances; Z86.73 Personal history of transient ischemic attack (TIA), and cerebral infarction without residual deficits; Z86.718 Personal history of other venous thrombosis and embolism; Z72.0 Tobacco use
CPT/HCPCS: 71275; 81001; 84484; 99285; A9270; Q9967; 36415; 99284

== ENCOUNTER 2021-05-05 10:15 | Emergency (ER) | payer BC ==
[2021-05-05 10:30] VITALS: BP 107/70; PULSE 99
[2021-05-05 11:44] LABS: CORONAVIRUS COVID-19 NAA NEGATIVE (NEGATIVE); RESPIRATORY SYNCYTIAL VIR NAA NEGATIVE (NEGATIVE)
[2021-05-05 11:49] LABS: CHLORIDE,CL 104 mmol/L (98-107); SODIUM,NA 138 mmol/L (136-145)
[2021-05-05 11:50] LABS: ANION GAP 14.9 meq/L (7-15)
== END 2021-05-05 12:07 | disposition home or self-care (01) ==
LOC: LL.ED 10:15
DX: J06.9 Acute upper respiratory infection, unspecified (principal); F17.210 Nicotine dependence, cigarettes, uncomplicated; I25.10 Atherosclerotic heart disease of native coronary artery without angina pectoris; E78.00 Pure hypercholesterolemia, unspecified; I25.2 Old myocardial infarction; E66.9 Obesity, unspecified; Z68.30 Body mass index [BMI] 30.0-30.9, adult; Z95.0 Presence of cardiac pacemaker; Z79.02 Long term (current) use of antithrombotics/antiplatelets; Z88.8 Allergy status to other drugs, medicaments and biological substances; Z79.899 Other long term (current) drug therapy; Z20.822 Contact with and (suspected) exposure to COVID-19; Z72.0 Tobacco use
CPT/HCPCS: 0241U; 36415; 80053; 85025; 86140; 99284

== ENCOUNTER 2022-07-03 09:55 | Emergency (ER) | payer BC, MEDICARE ==
[2022-07-03] MEDS ORDERED: Sodium Chloride 0.9% 10 ML Syringe FLUSH PRN (10:09)
[2022-07-03] MEDS: Sodium Chloride 0.9% 1,000 ML IV ONE (10:16)
[2022-07-03 10:25] LABS: RED BLOOD CELL COUNT 4.88 M/uL (3.77-5.09); WHITE BLOOD CELL COUNT,WBC 9.6 K/uL (4.0-10.2)
[2022-07-03] MEDS: Ondansetron 4 MG/2 ML SDV IVPUSH PRN (10:25)
[2022-07-03 10:26] LABS: HEMATOCRIT 44.9 % (34.0-46.0); MEAN CORPUSCULAR HEMOGLOBIN 32.8 pg (28.2-33.3); MEAN CORPUSCULAR HGB CONC 35.6 g/dL (31.7-36.0); PLATELET COUNT,PLT 202 K/uL (150-350)
[2022-07-03 10:27] LABS: BASOPHILS PERCENT AUTO 0.2 % (0.0-2.0); LYMPHOCYTES PERCENT AUTO 30.8 % (10.0-50.0); MONOCYTES PERCENT AUTO 5.8 % (2.0-14.0); NEUTROPHILS PERCENT AUTO 62.2 % (45.0-80.0)
[2022-07-03 10:28] LABS: NEUTROPHILS ABSOLUTE AUTO 5.96 K/uL (1.40-7.00)
[2022-07-03] MEDS: Nitroglycerin 0.4 MG Tab.SL SL ONE (10:28)
[2022-07-03 10:29] LABS: LYMPHOCYTES ABSOLUTE AUTO 2.96 K/uL (0.50-3.50)
[2022-07-03 10:30] LABS: BASOPHILS ABSOLUTE AUTO 0.02 K/uL (0.00-0.20); MONOCYTES ABSOLUTE AUTO 0.56 K/uL (0.00-1.00)
[2022-07-03 10:34] LABS: ANION GAP 17.9 meq/L (7-15); BLOOD UREA NITROGEN,BUN 16 mg/dL (7-18); CALCIUM 9.2 mg/dL (8.5-10.1); CARBON DIOXIDE,CO2 20.8 mmol/L (21.0-32.0); CHLORIDE,CL 103 mmol/L (98-107); ESTIMATED GFR 64 mL/min (>=60); GLUCOSE RANDOM 109 mg/dL (70-99); POTASSIUM,K 3.7 mmol/L (3.5-5.1); PROTEIN TOTAL,TP 7.7 g/dL (6.4-8.2); SODIUM,NA 138 mmol/L (136-145)
[2022-07-03 10:35] LABS: ALANINE AMINOTRANSFERASE,ALT 31 U/L (12-78); ALBUMIN 3.8 g/dL (3.4-5.0); ALKALINE PHOSPHATASE 106 IU/L (46-116); ASPARTATE AMNIOTRANSFERASE,AST 21 U/L (15-37); BILIRUBIN TOTAL 0.7 mg/dL (0.2-1.0)
[2022-07-03] MEDS: Nitroglycerin 0.4 MG Tab.SL ONE (11:00)
[2022-07-03 11:26] LABS: CREATINE KINASE,CK 86 U/L (26-308)
[2022-07-03 15:00] VITALS: BP 115/80; PULSE 85
== END 2022-07-03 12:54 | disposition home or self-care (01) ==
LOC: LL.ED 09:55
DX: I49.3 Ventricular premature depolarization (principal); I50.9 Heart failure, unspecified; I25.2 Old myocardial infarction; I25.10 Atherosclerotic heart disease of native coronary artery without angina pectoris; Z95.810 Presence of automatic (implantable) cardiac defibrillator; Z95.5 Presence of coronary angioplasty implant and graft; Z79.899 Other long term (current) drug therapy; Z88.8 Allergy status to other drugs, medicaments and biological substances; Z86.73 Personal history of transient ischemic attack (TIA), and cerebral infarction without residual deficits
CPT/HCPCS: 36415; 71045; 80053; 82550; 83880; 84484; 85025; 85379; 93005; 93010; 96361; 96374; 99284; 99284-25; A9270-GY; J2405; J7030

== ENCOUNTER 2024-06-24 20:13 | Emergency (ER) | payer BC, MEDICARE ==
[2024-06-24 20:15] VITALS: BP 141/86; PULSE 84
[2024-06-24] MEDS ORDERED: Sodium Chloride 0.9% 10 ML Syringe FLUSH PRN (20:24)
[2024-06-24 20:37] LABS: BASOPHILS ABSOLUTE AUTO 0.05 K/uL (0.00-0.20); BASOPHILS PERCENT AUTO 0.6 % (0.0-2.0); EOSINOPHILS ABSOLUTE AUTO 0.21 K/uL (0.00-0.50); EOSINOPHILS PERCENT AUTO 2.3 % (0.0-5.0); HEMATOCRIT 45.1 % (34.0-46.0); HEMOGLOBIN 15.4 g/dL (11.7-15.5); IMMATURE GRAN ABSOLUTE AUTO 0.01 10^3/uL (0.00-0.04); IMMATURE GRAN PERCENT AUTO 0.1 % (0.0-0.4); LYMPHOCYTES ABSOLUTE AUTO 3.49 K/uL (0.50-3.50); LYMPHOCYTES PERCENT AUTO 38.9 % (10.0-50.0); MEAN CORPUSCULAR HEMOGLOBIN 32.6 pg (28.2-33.3); MEAN CORPUSCULAR HGB CONC 34.1 g/dL (31.7-36.0); MEAN CORPUSCULAR VOLUME 95.3 fL (84.0-98.0); MONOCYTES ABSOLUTE AUTO 0.48 K/uL (0.00-1.00); MONOCYTES PERCENT AUTO 5.3 % (2.0-14.0); NEUTROPHILS ABSOLUTE AUTO 4.74 K/uL (1.40-7.00); NEUTROPHILS PERCENT AUTO 52.8 % (45.0-80.0); PLATELET COUNT,PLT 211 K/uL (150-350); RED BLOOD CELL COUNT 4.73 M/uL (3.77-5.09); RED CELL DISTRIBUTION WIDTH 12.1 % (11.2-14.1)
[2024-06-24 20:55] LABS: PROTHROMBIN TIME 9.9 SEC (9.0-11.1)
[2024-06-24] MEDS: LORazepam 1 MG Tab PO ONE (20:58)
[2024-06-24 21:06] LABS: ALANINE AMINOTRANSFERASE,ALT 34 U/L (12-78); ALBUMIN 3.7 g/dL (3.4-5.0); ALKALINE PHOSPHATASE 120 IU/L (46-116); ASPARTATE AMNIOTRANSFERASE,AST 20 U/L (15-37); BILIRUBIN TOTAL 0.2 mg/dL (0.2-1.0); BLOOD UREA NITROGEN,BUN 23 mg/dL (7-18); CALCIUM 9.3 mg/dL (8.5-10.1); CHLORIDE,CL 105 mmol/L (98-107); CREATININE 1.11 mg/dL (0.51-1.17); GLUCOSE RANDOM 83 mg/dL (70-99); MAGNESIUM 1.9 mg/dL (1.8-2.4); POTASSIUM,K 4.4 mmol/L (3.5-5.1); PRO B-TYPE NATRIUR PEPT,BNPPRO 536 pg/mL (0-125); PROTEIN TOTAL,TP 7.6 g/dL (6.4-8.2); SODIUM,NA 141 mmol/L (136-145)
[2024-06-24 21:09] LABS: ESTIMATED GFR 62 mL/min (>=60)
[2024-06-24] MEDS: Aluminum Hydroxide/Magnesium Hydroxide/Simethicone Susp 30 ML Cup PO ONE (21:48)
[2024-06-24] MEDS: Lidocaine 2% Viscous Solution 15 ML UD PO ONE (21:48)
== END 2024-06-24 22:17 | disposition home or self-care (01) ==
LOC: LL.ED 20:13
DX: R10.13 Epigastric pain (principal); I10 Essential (primary) hypertension; E78.00 Pure hypercholesterolemia, unspecified; F17.200 Nicotine dependence, unspecified, uncomplicated; Z79.899 Other long term (current) drug therapy; Z88.8 Allergy status to other drugs, medicaments and biological substances
CPT/HCPCS: 36415; 71045; 80053; 83735; 83880; 84484; 85025; 85379; 85610; 93005; 93010; 99284; 99285; A9270-GY

== ENCOUNTER 2024-09-28 08:50 | Emergency (ER) | payer BC, MEDICARE ==
[2024-09-28 08:55] VITALS: BP 114/68; PULSE 75
[2024-09-28 09:12] LABS: BASOPHILS ABSOLUTE AUTO 0.02 K/uL (0.00-0.20); BASOPHILS PERCENT AUTO 0.3 % (0.0-2.0); EOSINOPHILS ABSOLUTE AUTO 0.12 K/uL (0.00-0.50); EOSINOPHILS PERCENT AUTO 1.7 % (0.0-5.0); IMMATURE GRAN ABSOLUTE AUTO 0.01 10^3/uL (0.00-0.04); IMMATURE GRAN PERCENT AUTO 0.1 % (0.0-0.4); LYMPHOCYTES ABSOLUTE AUTO 0.67 K/uL (0.50-3.50); LYMPHOCYTES PERCENT AUTO 9.7 % (10.0-50.0); MONOCYTES ABSOLUTE AUTO 0.43 K/uL (0.00-1.00); MONOCYTES PERCENT AUTO 6.2 % (2.0-14.0); NEUTROPHILS ABSOLUTE AUTO 5.64 K/uL (1.40-7.00); NEUTROPHILS PERCENT AUTO 82.0 % (45.0-80.0); PLATELET COUNT,PLT 184 K/uL (150-350); RED BLOOD CELL COUNT 4.25 M/uL (3.77-5.09); RED CELL DISTRIBUTION WIDTH 12.5 % (11.2-14.1); WHITE BLOOD CELL COUNT,WBC 6.9 K/uL (4.0-10.2)
[2024-09-28 09:38] LABS: ALANINE AMINOTRANSFERASE,ALT 26.0 U/L (12-78); ASPARTATE AMNIOTRANSFERASE,AST 24.0 U/L (15-37); BILIRUBIN TOTAL 0.5 mg/dL (0.2-1.0); BLOOD UREA NITROGEN,BUN 15.0 mg/dL (7-18); CARBON DIOXIDE,CO2 26.8 mmol/L (21.0-32.0); CHLORIDE,CL 105.0 mmol/L (98-107); CREATININE 1.04 mg/dL (0.51-1.17); EST CRCL DRUG DOSING (CG) 77.17 mL/min; GLUCOSE RANDOM 94.0 mg/dL (70-99); POTASSIUM,K 4.1 mmol/L (3.5-5.1); PROTEIN TOTAL,TP 7.1 g/dL (6.4-8.2); SODIUM,NA 139.0 mmol/L (136-145)
[2024-09-28 09:39] LABS: ESTIMATED GFR 67.0 mL/min (>=60)
[2024-09-28] MEDS: Take Home: oxyCODONE HCl 5 MG Tab, 5 Tab Pack PO ONE (09:57)
[2024-09-28] MEDS: Take Home: Clindamycin HCl 150 MG, 12 Cap Pack PO ONE (09:57)
== END 2024-09-28 10:08 | disposition home or self-care (01) ==
LOC: LL.ED 08:50
DX: L03.115 Cellulitis of right lower limb (principal); M19.90 Unspecified osteoarthritis, unspecified site; E78.00 Pure hypercholesterolemia, unspecified; E66.9 Obesity, unspecified; Z88.8 Allergy status to other drugs, medicaments and biological substances; Z79.82 Long term (current) use of aspirin; Z79.899 Other long term (current) drug therapy; Z90.710 Acquired absence of both cervix and uterus; Z68.29 Body mass index [BMI] 29.0-29.9, adult
CPT/HCPCS: 36415; 80053; 85025; 99283; A9270